=== PATIENT | male | born 1955 | race Hispanic/Latino ===

== ENCOUNTER 2017-01-20 09:51 | Inpatient (IN) | payer MEDICARE, SELFPAY ==
[2017-01-20 10:36] LABS: #Lymphocytes 0.5 thou/uL (1.20-3.40); #Monocytes 0.5 thou/uL (0.11-0.59); #Neutrophils 8.6 thou/uL (1.40-6.50); %Basophils 0.3 % (0.0-1.0); %Eosinophils 0.3 % (0.0-10.0); %Lymphocytes 5.1 % (21.0-51.0); %Monocytes 5.6 % (0.0-10.0); Hematocrit 28.7 % (42.0-52.0); Mean Platelet Volume 7.9 fL (7.4-10.4); White Blood Cell (WBC) Count 9.7 thou/uL (4.8-10.8)
--- NOTE | 2017-01-20 10:38 | RAD ---
PORTABLE CHEST: Date: 01/20/17 HISTORY: Dyspnea. COMPARISON: 09/07/08. FINDINGS: Heart size is upper normal. There is vascular engorgement. There are alveolar infiltrates seen in both lung bases, slightly more prominent on the right. There is evidence of small bilateral effusions. Findings may represent nancy a; however, inflammatory infiltrates should be excluded. IMPRESSION: Bilateral infiltrates and small bilateral effusions. POS: [facility]
[2017-01-20] MEDS ORDERED: Albuterol Sulfate 2.5 mg/3 ml Neb ONE (10:53)
[2017-01-20] MEDS ORDERED: Albuterol Sulfate 2.5 mg/0.5 ml Neb ONE (10:53)
[2017-01-20 10:57] LABS: ALT (SGPT) 11 U/L (8-55); AST (SGOT) 12 U/L (5-34); Alkaline Phosphatase 91 U/L (40-150); Anion Gap 14 mmol/L (10-20); BUN (Urea Nitrogen) 30 mg/dL (8.4-25.7); Calc. Creatinine Clearance 0 mL/min (70-130); Calcium 8.4 mg/dL (7.8-10.44); Carbon Dioxide 14 mmol/L (23-31); Chloride 114 mmol/L (98-107); Estimated GFR-MDRD 67; Globulin 3.2 g/dL (2.4-3.5); Protein, Total 6.8 g/dL (5.8-8.1)
[2017-01-20 11:01] LABS: Troponin I 0.023 ng/mL (< 0.028)
[2017-01-20] MEDS ORDERED: Furosemide 40 MG/4 ML VIAL ONE (11:12)
--- NOTE | 2017-01-20 13:54 | HP ---
PRIMARY CARE PHYSICIAN: This is a city call admission, patient is originally from [place], [place]. He is visiting town. HISTORY OF PRESENT ILLNESS: A 61-year-old male, who has history of CHF as well as COPD, wh o has bilateral above-knee amputation, who came to the emergency room for acute onset of shortness o f breath. Patient is from [place], [place] and he is scared that he is getting over there. 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 He does not have any details health history for himself, so his tory is very limited as we do not have any old medical record in our hospital system as well. He reports that he was visiting our town to meet family members. Last night, he was experiencing sh ortness of breath. He was not able to lie down flat. He was having orthopnea. He denies any fever or chills. He denies any cough, chest pain, palpitation, dizziness, syncope. This morning, patient's condition gotten more worse. He was struggling to breathe and that is why a family member called paramedics. Paramedics gave him nitropatch, Solu-Medrol 125 mg, and 3 times D uoNeb therapy, and paramedics reported that when they saw him at that time he was clammy, diaphoreti c, hypertensive. Patient was kept on BiPAP in the emergency room. He was hypertensive and he arriv ed to our ER. Paramedics also tried him on CPAP and subsequently after BiPAP, he felt better and Bi PAP was weaned off. When I saw this patient at that time, patient was hypertensive. He was on room air and he was feeling better. Chest x-ray today showed bilateral infiltrates, bilateral pleural effusion. His BNP was elevated. At this point, we are admitting this patient to telemetry floor for acute on chronic, presumably sys tolic heart failure and acute hypoxic respiratory failure. REVIEW OF SYSTEMS: The following complete review of systems was negative, unless otherwise mentione d in the HPI or below: Constitutional: Weight loss or gain, ability to conduct usual activities. Skin: Rash, itching. Eyes: Double vision, pain. ENT/Mouth: Nose bleeding, neck stiffness, pain, tenderness. Cardiovascular: Palpitations, dyspnea on exertion, orthopnea. Respiratory: Shortnes s of breath, wheezing, cough, hemoptysis, fever or night sweats. Gastrointestinal: Poor appetite, abdominal pain, heartburn, nausea, vomiting, constipation, or diarrhea. Genitourinary: Urgency, fr equency, dysuria, nocturia. Musculoskeletal: Pain, swelling. Neurologic/Psychiatric: Anxiety, de pression. Allergy/Immunologic: Skin rash, bleeding tendency. Please see my HPI for pertinent posi tives and negatives. All other review of system reviewed and negative except as mentioned in the HP I. PAST MEDICAL HISTORY: Diabetes type 2, hypertension, benign enlargement of prostate, coronary arter y disease, peripheral vascular disease, benign enlargement of prostate, chronic systolic heart failu re, dyslipidemia, and COPD. PAST SURGICAL HISTORY: Patient has bilateral above-knee amputation. 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 Patient also required a procedure on lower extremity for revascularization and within a year, one by one patient required below-knee and subsequently above-knee amputation and also require d similarly on the left lower extremity as well. At this point, the patient has bilateral above-kne e amputation. He also had a cardiac catheterization in the past. PAST PSYCHIATRIC HISTORY: Anxiety and depression. SOCIAL HISTORY: Patient is single. He lives with his sister. No history of smoking, alcohol, or o ther illicit drug abuse. FAMILY HISTORY: Diabetes, hypertension runs among several family members. ALLERGIES: No known drug allergies. CURRENT HOME MEDICATIONS: Gabapentin 300 mg 3 times daily, metformin 1000 mg twice daily, Flomax 0. 4 mg daily, Plavix 75 mg p.o. daily, Proscar 5 mg p.o. daily, Coreg 25 mg twice daily, aspirin 81 mg p.o. daily, Zoloft 50 mg p.o. daily, amlodipine 10 mg p.o. daily, metoprolol tartrate 100 mg twice daily, Lipitor 40 mg p.o. daily, Levemir 20 units subcu twice daily, lisinopril 40 mg p.o. daily. EMERGENCY ROOM COURSE: Patient is given Lasix 80 mg, albuterol nebulization. PHYSICAL EXAMINATION: VITAL SIGNS: On arrival, blood pressure 132/61, pulse 86, respiratory rate 26, temperature 97.8, sa turation 98% on BiPAP. Weight 68 kilograms. GENERAL: Patient is currently alert, awake, short of breath, hypertensive, in no obvious acute dist ress. HEENT: Head: Normocephalic, atraumatic. Eyes: Pupils round, reactive to light. Extraocular musc les intact. ENT: Oropharynx within normal limits. Moist mucous membranes. No oral lesions. No pharyngeal cari thema, no exudates. NECK: Supple, no obvious JVD noted. No meningeal signs of irritation. LUNGS: Bilateral rhonchi and rales noted. CARDIAC: S1, S2 regular, tachycardia, no murmur, no gallop, no rub. ABDOMEN: Obesity present. Bowel sounds present. Nontender, nondistended. No organomegaly, no mas s, no suprapubic tenderness. BACK: Unremarkable, no CVA tenderness. EXTREMITIES: Upper extremity, passive movement of all joints are normal. Lower extremity: Bilater al above-knee amputation. NEUROLOGIC: Grossly nonfocal examination. Patient is moving both upper extremities. His speech is baseline. PSYCHIATRIC: Normal affect. SIGNIFICANT LABS: 1. EKG showing LVH with repolarization changes. Chest x-ray showing bilateral infiltration and valerio ateral pleural effusion. 2. CBC: WBC 9.7, hemoglobin 9.5, platelet 188. BMP shows sodium 137, potassium 5.2, chloride 114, carbon dioxide 14, BUN 30, creatinine 1.11, glucose 181, calcium 8.4. 3. LFT: AST 12, ALT 11, alkaline phosphatase is 91, albumin 3.6. CK-MB 2.6, troponin 0.023, BNP 7 15.1. ASSESSMENT AND PLAN/IMPRESSION: 1. Acute on chronic, likely systolic congestive heart failure exacerbation. This patient presented with acute shortness of breath. He has orthopnea, evaluated BNP, bilateral pleural effusion, and b ilateral rales on the lung examination. He has underlying history of peripheral vascular disease, i schemic heart disease, so most likely this patient has systolic heart failure. This patient has bee n following Cardiology in [place], [place]. At this point, only will try to obtain echocardiography t o assess ejection fraction and other structural abnormality. Meanwhile, we will continue with Lasix 40 mg intravenous 2 times daily and Zaroxolyn 5 mg p.o. daily. We will monitor input output chart, fluid restriction about 1200 mL per day, daily weight and we will monitor electrolytes and replace accordingly. This patient is planned for going to [place], [place] on coming Thursday, so we will def er further evaluation there. 2. Acute hypoxic respiratory failure on admission, required BiPAP, currently improved. At this poi nt, we will continue to treat underlying problem of chronic heart failure exacerbation and we will m onitor oxygen saturations periodically and we will provide oxygen as needed basis. 3. Hypertensive urgency/crisis. The patient was very hypertensive when he presented by paramedics. At this point, patient's blood pressure is improved. We will continue with the nitropatch q.8 anita rly and we will resume patient's home medication as well. 4. Diabetes type 2. We will continue diabetic diet, metformin 1000 mg twice daily, Levemir 20 unit s subcutaneous twice daily. 5. Coronary artery disease as well as peripheral vascular disease. We will continue Plavix 75 mg p .o. daily, Coreg 25 mg twice daily, lisinopril 40 mg p.o. daily. 6. Dyslipidemia. Continue Lipitor 40 mg p.o. at bedtime. 7. Hypertension. In addition to Coreg, lisinopril, we will also continue amlodipine 10 mg p.o. judson ly. 8. Benign enlargement of prostate. We will continue Flomax 0.4 mg p.o. daily and Proscar 5 mg p.o. daily. 9. Diabetic neuropathy. We will continue gabapentin 300 mg three times daily. 10. Bilateral above-knee amputation. We will provide supportive care. 11. Deep venous thrombosis prophylaxis, Lovenox 40 mg subcu daily. 12. Gastrointestinal prophylaxis, Pepcid 20 mg p.o. b.i.d. 13. Code status. I spoke with the patient and family member. Patient is FULL CODE. The patient d oes not have any surrogate decision maker. Disposition plan based on clinical course. We are expecting patient's stay in the hospital more darien n 2 midnights. Plan of care discussed with the patient and family member in the emergency room.
[2017-01-20] MEDS ORDERED: Sodium Chloride 0.65% Nasal 44 ML BOT EA NARE PRN (14:30)
[2017-01-20] MEDS ORDERED: Chloraseptic Spray 180 ml Bottle PO PRN (14:30)
[2017-01-20] MEDS ORDERED: hydrALAZINE 20 MG/ML VIAL SLOW IVP PRN (14:30)
[2017-01-20] MEDS ORDERED: Acetaminophen 325 MG TAB PO PRN (14:30)
[2017-01-20] MEDS ORDERED: Milk Of Magnesia 30 ML UDCUP PO PRN (14:30)
[2017-01-20] MEDS ORDERED: Eucerin (Mineral Oil/Petrolatum,White) 30 gm Jar TOP PRN (14:30)
[2017-01-20] MEDS ORDERED: Diabetic Tussin 200 MG/10 ML UDCUP PO PRN (14:30)
[2017-01-20] MEDS ORDERED: Dextrose 50% Abboject 50 ML SYRINGE SLOW IVP PRN (14:30)
[2017-01-20] MEDS ORDERED: Zolpidem Tartrate 5 MG TAB PO PRN (14:30)
[2017-01-20] MEDS ORDERED: Furosemide 40 MG/4 ML VIAL SLOW IVP SCH ×2 (14:30→15:00)
[2017-01-20] MEDS ORDERED: Nitroglycerin 0.4 MG TAB (25 Tab Bottle) SL PRN (14:30)
[2017-01-20] MEDS ORDERED: Mag-Al 1200 mg/1200 mg/30 ML UDCUP PO PRN (14:30)
[2017-01-20] MEDS ORDERED: Loratadine 10 MG TAB PO PRN (14:30)
[2017-01-20] MEDS ORDERED: Dextrose 5% in Water 1,000 ML IV PRN (14:30)
[2017-01-20] MEDS ORDERED: Ondansetron ODT 4 MG TAB PO PRN (14:30)
[2017-01-20] MEDS ORDERED: Ondansetron HCl/PF 4 MG/2 ML Vial IVP PRN (14:30)
[2017-01-20] MEDS ORDERED: HumaLOG 300 UNITS/3 ML VIAL SC PRN ×2 (14:30)
[2017-01-20] MEDS ORDERED: Senokot 8.6 MG TAB PO PRN (14:30)
[2017-01-20] MEDS ORDERED: Loperamide HCl 2 MG CAP PO PRN (14:30)
[2017-01-20 14:35] LABS: Troponin I 0.039 ng/mL (< 0.028)
[2017-01-20 16:18] LABS: Troponin I 0.045 ng/mL (< 0.028)
[2017-01-20] MEDS: Carvedilol 25 MG TAB PO SCH (16:50)
[2017-01-20] MEDS: Gabapentin 300 MG CAP PO SCH ×2 (16:50→20:04)
[2017-01-20] MEDS ORDERED: Sodium Chloride 0.9% 10 ML ONE (16:59)
[2017-01-20] MEDS: metFORMIN 500 MG TAB PO SCH (17:06)
[2017-01-20 17:32] LABS: Bilirubin Negative (Negative); Blood, Urine Moderate (Negative); Glucose, Urine (Dipstick) Negative (Negative); Ketone, Urine Negative (Negative); Nitrite Positive (Negative); Protein, Urine (Dipstick) 300 mg/dL (Neg-Trace); Urobilinogen 0.2 mg/dL (0.2-1.0)
[2017-01-20 17:35] LABS: Bacteria/HPF 4+ HPF (None Seen); Hyaline Casts/LPF 4-6 HYALINE CAST LPF (0-3 Hyaline); Squamous Epithelial 0-3 HPF (0-3)
[2017-01-20 17:42] LABS: Yeast-All Forms None Seen HPF (None Seen)
[2017-01-20] MEDS: Atorvastatin Calcium 40 MG TAB PO SCH (20:04)
[2017-01-20] MEDS: Famotidine 20 MG TAB PO SCH (20:04)
[2017-01-20] MEDS: Insulin Detemir 100 UNITS/ML 20 UNITS in Admixture Fee 1 EACH SC SCH (20:58)
[2017-01-21] MEDS: Furosemide 40 MG/4 ML VIAL SLOW IVP SCH ×2 (05:10→14:00)
[2017-01-21 05:31] LABS: #Lymphocytes 0.4 thou/uL (1.20-3.40); #Monocytes 0.4 thou/uL (0.11-0.59); %Basophils 0.3 % (0.0-1.0); %Eosinophils 0.3 % (0.0-10.0); %Monocytes 4.8 % (0.0-10.0); Hematocrit 24.7 % (42.0-52.0); Mean Platelet Volume 8.4 fL (7.4-10.4); Red Blood Cell (RBC) Count 2.73 mill/uL (4.70-6.10); White Blood Cell (WBC) Count 7.9 thou/uL (4.8-10.8)
[2017-01-21 05:54] LABS: Anion Gap 13 mmol/L (10-20); BUN (Urea Nitrogen) 33 mg/dL (8.4-25.7); Calc. Creatinine Clearance 91 mL/min (70-130); Calcium 9.1 mg/dL (7.8-10.44); Carbon Dioxide 18 mmol/L (23-31); Chloride 114 mmol/L (98-107); Estimated GFR-MDRD 76; Magnesium 2.2 mg/dL (1.6-2.6); Uric Acid 7.2 mg/dL (3.5-7.2)
[2017-01-21] MEDS: Tamsulosin HCl 0.4 MG CAP PO SCH (08:32)
[2017-01-21] MEDS: Lisinopril 20 MG TAB PO SCH (08:32)
[2017-01-21] MEDS: Metolazone 5 MG TAB PO SCH (08:32)
[2017-01-21] MEDS: Amlodipine 10 MG TAB PO SCH (08:32)
[2017-01-21] MEDS: Carvedilol 25 MG TAB PO SCH ×2 (08:33→16:38)
[2017-01-21] MEDS: metFORMIN 500 MG TAB PO SCH ×2 (08:33→16:37)
[2017-01-21] MEDS: Ferrous Sulfate 325 MG TAB PO SCH (08:33)
[2017-01-21] MEDS: Enoxaparin Sodium 40 MG/0.4 ML SYRINGE SC SCH (08:33)
[2017-01-21] MEDS: Clopidogrel Bisulfate 75 MG TAB PO SCH (08:33)
[2017-01-21] MEDS: Gabapentin 300 MG CAP PO SCH ×3 (08:33→20:34)
[2017-01-21] MEDS: Famotidine 20 MG TAB PO SCH ×2 (08:33→20:34)
[2017-01-21] MEDS: Insulin Detemir 100 UNITS/ML 20 UNITS in Admixture Fee 1 EACH SC SCH ×2 (09:11→20:34)
--- NOTE | 2017-01-21 14:41 | PDOC.PN ---
- Subjective Encounter Start Date: 01/21/17 Encounter Start Time: 10:00 Subjective: breathing better, no chest pain - Objective Resuscitation Status: Resuscitation Status FULL:Full Resuscitation MAR Reviewed: Yes Vital Signs & Weight: Vital Signs (12 hours) Temp Pulse Resp BP Pulse Ox 01/21/17 11:53 98.0 F 78 17 164/74 H 95 01/21/17 08:32 74 01/21/17 08:00 98.1 F 74 17 173/76 H 94 L 01/21/17 05:16 97.9 F 84 20 174/79 H 95 Weight Admit Weight 183 lb 4.8 oz Weight 186 lb 1.6 oz I&O: 01/20/17 01/21/17 01/22/17 06:59 06:59 06:59 Intake Total 494 Output Total 1900 Balance -1406 Result Diagrams: 01/21/17 04:50 01/21/17 04:50 Additional Labs: Accuchecks 01/21/17 01/21/17 01/20/17 10:30 06:08 20:20 POC Glucose 142 H 144 H 203 H 01/20/17 16:00 POC Glucose 212 H Phys Exam - Physical Examination HEENT: PERRLA, moist MMs Neck: no JVD, supple Respiratory: no wheezing, no rales Cardiovascular: RRR, no significant murmur Gastrointestinal: soft, non-tender, positive bowel sounds Musculoskeletal: no edema, pulses present Neurological: non-focal has b/l aka Psychiatric: A&O x 3 Dx/Plan (1) Acute respiratory failure with hypoxia Code(s): J96.01 - ACUTE RESPIRATORY FAILURE WITH HYPOXIA Status: Resolved (2) UTI (urinary tract infection) Status: Acute Qualifiers: Urinary tract infection type: acute cystitis Hematuria presence: without hematuria Qualified Code(s): N30.00 - Acute cystitis without hematuria (3) Acute exacerbation of CHF (congestive heart failure) Code(s): I50.9 - HEART FAILURE, UNSPECIFIED Status: Acute Qualifiers: Congestive heart failure type: unspecified congestive heart failure type Qualified Code(s): I50.9 - Heart failure, unspecified (4) DM type 2 (diabetes mellitus, type 2) Status: Chronic Qualifiers: Diabetes mellitus complication status: with unspecified complications Diabetes mellitus ferry terminal agent insulin use: with long-term use Qualified Code(s) : E11.8 - Type 2 diabetes mellitus with unspecified complications; Z79.4 - care home (current) use of insulin; Z79.4 - intermodal truck driver (current) use of insulin; Z79.4 - intermodal truck driver (current) use of insulin; Z79.4 - intermodal truck driver (current) use of insulin (5) Chronic anemia Code(s): D64.9 - ANEMIA, UNSPECIFIED Status: Chronic (6) Demand ischemia of myocardium Code(s): I24.8 - OTHER FORMS OF ACUTE ISCHEMIC HEART DISEASE Status: Acute (7) b/l aka Status: Chronic (8) Metabolic acidosis Code(s): E87.2 - ACIDOSIS Status: Acute - Plan is on lasix 40mg q12h and metolazone -: levaquin for uti -: echo -: watch for hypotension -: will repeat cxr in 36hrs * . Review of Systems - Medications/Allergies Allergies/Adverse Reactions: Allergies Allergy/AdvReac Type Severity Reaction Status Date / Time No Known Allergies Allergy Verified 01/20/17 16:27 Medications: Current Medications Acetaminophen (Tylenol) 650 mg PO Q4H PRN PRN Reason: Headache/Fever or Pain Hydrocodone Bitart/Acetaminophen ([place] 5/325) 1 tab PO Q4H PRN PRN Reason: Moderate Pain (4-6) Al Hydroxide/Mg Hydroxide (Maalox) 30 ml PO Q6H PRN PRN Reason: Heartburn or Indigestion Albuterol/Ipratropium (Duoneb) 3 ml NEB [id number] PRN PRN Reason: SOB &/or Wheezing Amlodipine Besylate (Norvasc) 10 mg PO DAILY [facility] Last Admin: 01/21/17 08:32 Dose: 10 mg Aspirin (Aspirin Chewable) 81 mg PO DAILY [facility] Last Admin: 01/21/17 08:33 Dose: 81 mg Atorvastatin Calcium (Lipitor) 40 mg PO HS [facility] Last Admin: 01/20/17 20:04 Dose: 40 mg Carvedilol (Coreg) 25 mg PO BID-WM [facility] Last Admin: 01/21/17 08:33 Dose: 25 mg Clopidogrel Bisulfate (Plavix) 75 mg PO DAILY [facility] Last Admin: 01/21/17 08:33 Dose: 75 mg Dextrose/Water (Dextrose 50%) 25 gm SLOW IVP PRN PRN PRN Reason: Hypoglycemia Enoxaparin Sodium (Lovenox) 40 mg SC 0900 [facility] Last Admin: 01/21/17 08:33 Dose: 40 mg Famotidine (Pepcid) 20 mg PO BID [facility] Last Admin: 01/21/17 08:33 Dose: 20 mg Ferrous Sulfate (Feosol) 325 mg PO QAM[facility] Last Admin: 01/21/17 08:33 Dose: 325 mg Furosemide (Lasix) 40 mg SLOW IVP 0600,1400 [facility] Last Admin: 01/21/17 14:00 Dose: 40 mg Gabapentin (Neurontin) 300 mg PO TID [facility] Last Admin: 01/21/17 14:00 Dose: 300 mg Glucagon (Glucagon) 1 mg IM PRN PRN PRN Reason: Hypoglycemia Guaifenesin (Robitussin Sf) 200 mg PO Q4H PRN PRN Reason: Cough Hydralazine HCl (Apresoline) 10 mg SLOW IVP Q4H PRN PRN Reason: Systolic BP > 180 Dextrose/Water (D5w) 1,000 mls @ 0 mls/hr IV .Q0M PRN; As Directed PRN Reason: Hypoglycemia Insulin Detemir 20 units/ (Miscellaneous Medication) 0.2 mls @ 0 mls/hr SC HS [facility] Last Admin: 01/20/17 20:58 Dose: 0.2 mls Insulin Detemir 20 units/ (Miscellaneous Medication) 0.2 mls @ 0 mls/hr SC QAM [facility] Last Admin: 01/21/17 09:11 Dose: 0.2 mls Levofloxacin 500 mg/ Device 100 mls @ 100 mls/hr IVPB Q24HR [facility] Last Admin: 01/21/17 08:30 Dose: 100 mls Insulin Human Lispro (Humalog) 0 units SC .MODERATE SLIDING SC PRN PRN Reason: Moderate Correctional Scale Last Admin: 01/20/17 17:17 Dose: 4 unit Insulin Human Lispro (Humalog) 0 units SC .BEDTIME SLIDING SC PRN PRN Reason: Bedtime Correctional Scale Lisinopril (Zestril) 40 mg PO DAILY [facility] Last Admin: 01/21/17 08:32 Dose: 40 mg Loperamide HCl (Imodium) 2 mg PO PRN PRN PRN Reason: Diarrhea/Loose Stools Loratadine (Claritin) 10 mg PO DAILYPRN PRN PRN Reason: Sinus Symptoms Magnesium Hydroxide (Milk Of Magnesium) 30 ml PO DAILYPRN PRN PRN Reason: Constipation Metformin HCl (Glucophage) 1,000 mg PO BID-[facility] Last Admin: 01/21/17 08:33 Dose: 1,000 mg Metolazone (Zaroxolyn) 5 mg PO 0830 [facility] Last Admin: 01/21/17 08:32 Dose: 5 mg Mineral Oil/White Petrolatum (Eucerin Cream) 0 gm TOP BIDPRN PRN PRN Reason: Dry Skin Nitroglycerin (Nitrostat) 0.4 mg SL Q5MIN PRN PRN Reason: Chest Pain Ondansetron HCl (Zofran Odt) 4 mg PO Q6H PRN PRN Reason: Nausea/Vomiting Ondansetron HCl (Zofran) 4 mg IVP Q6H PRN PRN Reason: Nausea/Vomiting Phenol (Chloraseptic [place] 180 Ml Bot) 0 ml PO PRN PRN PRN Reason: Sore Throat Senna (Senokot) 2 tab PO HSPRN PRN PRN Reason: Constipation Sertraline HCl (Zoloft) 50 mg PO DAILY [facility] Last Admin: 01/21/17 08:32 Dose: 50 mg Sodium Chloride ([place] Nasal [place] 0.65%) 0 ml EA NARE QIDPRN PRN PRN Reason: Nasal Congestion Tamsulosin HCl (Flomax) 0.4 mg PO DAILY [facility] Last Admin: 01/21/17 08:32 Dose: 0.4 mg Zolpidem Tartrate (Ambien) 5 mg PO HSPRN PRN PRN Reason: Insomnia
[2017-01-21] MEDS: Atorvastatin Calcium 40 MG TAB PO SCH (20:33)
[2017-01-22] MEDS: Furosemide 40 MG/4 ML VIAL SLOW IVP SCH ×2 (05:33→16:11)
[2017-01-22] MEDS: HYDROcodone/Acetaminophen 5/325 mg Tablet PO PRN ×2 (05:41→19:07)
[2017-01-22 08:23] LABS: #Eosinphils 0.1 thou/uL (0.0-0.7); #Lymphocytes 0.8 thou/uL (1.20-3.40); #Monocytes 0.4 thou/uL (0.11-0.59); #Neutrophils 5.9 thou/uL (1.40-6.50); %Basophils 0.1 % (0.0-1.0); %Eosinophils 0.8 % (0.0-10.0); %Lymphocytes 10.8 % (21.0-51.0); %Monocytes 5.9 % (0.0-10.0); Hematocrit 26.2 % (42.0-52.0); Mean Platelet Volume 7.6 fL (7.4-10.4); White Blood Cell (WBC) Count 7.1 thou/uL (4.8-10.8)
[2017-01-22 08:41] LABS: Anion Gap 13 mmol/L (10-20); BUN (Urea Nitrogen) 38 mg/dL (8.4-25.7); Calc. Creatinine Clearance 92 mL/min (70-130); Carbon Dioxide 21 mmol/L (23-31); Chloride 109 mmol/L (98-107); Estimated GFR-MDRD 75
[2017-01-22] MEDS: Ferrous Sulfate 325 MG TAB PO SCH (08:44)
[2017-01-22] MEDS: Carvedilol 25 MG TAB PO SCH ×2 (08:44→16:12)
[2017-01-22] MEDS: metFORMIN 500 MG TAB PO SCH ×2 (08:44→16:12)
[2017-01-22] MEDS: Enoxaparin Sodium 40 MG/0.4 ML SYRINGE SC SCH (08:44)
[2017-01-22] MEDS: Metolazone 5 MG TAB PO SCH (08:44)
[2017-01-22] MEDS: Famotidine 20 MG TAB PO SCH ×2 (08:45→22:32)
[2017-01-22] MEDS: Lisinopril 20 MG TAB PO SCH (08:45)
[2017-01-22] MEDS: Clopidogrel Bisulfate 75 MG TAB PO SCH (08:45)
[2017-01-22] MEDS: Gabapentin 300 MG CAP PO SCH ×3 (08:45→22:32)
[2017-01-22] MEDS: Tamsulosin HCl 0.4 MG CAP PO SCH (08:45)
[2017-01-22] MEDS: Amlodipine 10 MG TAB PO SCH (08:46)
[2017-01-22] MEDS: Insulin Detemir 100 UNITS/ML 20 UNITS in Admixture Fee 1 EACH SC SCH ×2 (08:53→22:33)
--- NOTE | 2017-01-22 12:02 | PDOC.PN ---
- Subjective Encounter Start Date: 01/22/17 Encounter Start Time: 10:00 Subjective: breathing better, no chest pain - Objective Resuscitation Status: Resuscitation Status FULL:Full Resuscitation MAR Reviewed: Yes Vital Signs & Weight: Vital Signs (12 hours) Temp Pulse Resp BP BP Pulse Ox 01/22/17 08:46 72 01/22/17 08:45 182/79 H 01/22/17 08:05 97.7 F 72 19 182/79 H 94 L 01/22/17 03:38 98.2 F 73 16 182/77 H 98 Weight Admit Weight 183 lb 4.8 oz Weight 188 lb 3 oz I&O: 01/21/17 01/22/17 01/23/17 06:59 06:59 06:59 Intake Total 494 1020 Output Total 1900 2825 Balance -1406 -1805 Result Diagrams: 01/22/17 08:13 01/22/17 08:13 Additional Labs: Accuchecks 01/22/17 01/21/17 01/21/17 05:20 20:01 16:24 POC Glucose 60 L 139 H 92 Phys Exam - Physical Examination HEENT: PERRLA, moist MMs Neck: no JVD, supple Respiratory: no wheezing, no rales Cardiovascular: RRR, no significant murmur Gastrointestinal: soft, non-tender, positive bowel sounds Musculoskeletal: no edema, pulses present Neurological: non-focal, moves all 4 limbs b/l aka Psychiatric: normal affect, A&O x 3 Dx/Plan (1) Acute respiratory failure with hypoxia Code(s): J96.01 - ACUTE RESPIRATORY FAILURE WITH HYPOXIA Status: Resolved (2) UTI (urinary tract infection) Status: Acute Qualifiers: Urinary tract infection type: acute cystitis Hematuria presence: without hematuria Qualified Code(s): N30.00 - Acute cystitis without hematuria (3) Acute exacerbation of CHF (congestive heart failure) Code(s): I50.9 - HEART FAILURE, UNSPECIFIED Status: Acute Qualifiers: Congestive heart failure type: diastolic Qualified Code(s): I50.33 - Acute on chronic diastolic (congestive) heart failure (4) DM type 2 (diabetes mellitus, type 2) Status: Chronic Qualifiers: Diabetes mellitus complication status: with unspecified complications Diabetes mellitus custodial insulin use: with terminal system operator use Qualified Code(s) : E11.8 - Type 2 diabetes mellitus with unspecified complications; Z79.4 - ferry terminal agent (current) use of insulin; Z79.4 - ferry terminal agent (current) use of insulin; Z79.4 - alf (current) use of insulin; Z79.4 - alf (current) use of insulin (5) Chronic anemia Code(s): D64.9 - ANEMIA, UNSPECIFIED Status: Chronic (6) Demand ischemia of myocardium Code(s): I24.8 - OTHER FORMS OF ACUTE ISCHEMIC HEART DISEASE Status: Acute (7) b/l aka Status: Chronic (8) Metabolic acidosis Code(s): E87.2 - ACIDOSIS Status: Acute - Plan await urine cs, on levaquin -: continue iv diuresis till am -: acidosis is resolving -: dc plan in am -: HH on discharge * . Review of Systems - Medications/Allergies Allergies/Adverse Reactions: Allergies Allergy/AdvReac Type Severity Reaction Status Date / Time No Known Allergies Allergy Verified 01/20/17 16:27 Medications: Current Medications Acetaminophen (Tylenol) 650 mg PO Q4H PRN PRN Reason: Headache/Fever or Pain Hydrocodone Bitart/Acetaminophen ([place] 5/325) 1 tab PO Q4H PRN PRN Reason: Moderate Pain (4-6) Last Admin: 01/22/17 05:41 Dose: 1 tab Al Hydroxide/Mg Hydroxide (Maalox) 30 ml PO Q6H PRN PRN Reason: Heartburn or Indigestion Albuterol/Ipratropium (Duoneb) 3 ml NEB [id number] PRN PRN Reason: SOB &/or Wheezing Amlodipine Besylate (Norvasc) 10 mg PO DAILY [facility] Last Admin: 01/22/17 08:46 Dose: 10 mg Aspirin (Aspirin Chewable) 81 mg PO DAILY [facility] Last Admin: 01/22/17 08:46 Dose: 81 mg Atorvastatin Calcium (Lipitor) 40 mg PO HS [facility] Last Admin: 01/21/17 20:33 Dose: 40 mg Carvedilol (Coreg) 25 mg PO BID-WM [facility] Last Admin: 01/22/17 08:44 Dose: 25 mg Clopidogrel Bisulfate (Plavix) 75 mg PO DAILY [facility] Last Admin: 01/22/17 08:45 Dose: 75 mg Dextrose/Water (Dextrose 50%) 25 gm SLOW IVP PRN PRN PRN Reason: Hypoglycemia Enoxaparin Sodium (Lovenox) 40 mg SC 0900 [facility] Last Admin: 01/22/17 08:44 Dose: 40 mg Famotidine (Pepcid) 20 mg PO BID [facility] Last Admin: 01/22/17 08:45 Dose: 20 mg Ferrous Sulfate (Feosol) 325 mg PO QAM-WM [facility] Last Admin: 01/22/17 08:44 Dose: 325 mg Furosemide (Lasix) 40 mg SLOW IVP 0600,1400 [facility] Last Admin: 01/22/17 05:33 Dose: 40 mg Gabapentin (Neurontin) 300 mg PO TID [facility] Last Admin: 01/22/17 08:45 Dose: 300 mg Glucagon (Glucagon) 1 mg IM PRN PRN PRN Reason: Hypoglycemia Guaifenesin (Robitussin Sf) 200 mg PO Q4H PRN PRN Reason: Cough Hydralazine HCl (Apresoline) 10 mg SLOW IVP Q4H PRN PRN Reason: Systolic BP > 180 Dextrose/Water (D5w) 1,000 mls @ 0 mls/hr IV .Q0M PRN; As Directed PRN Reason: Hypoglycemia Insulin Detemir 20 units/ (Miscellaneous Medication) 0.2 mls @ 0 mls/hr SC HS [facility] Last Admin: 01/21/17 20:34 Dose: 0.2 mls Insulin Detemir 20 units/ (Miscellaneous Medication) 0.2 mls @ 0 mls/hr SC QAM [facility] Last Admin: 01/22/17 08:53 Dose: 0.2 mls Levofloxacin 500 mg/ Device 100 mls @ 100 mls/hr IVPB Q24HR [facility] Last Admin: 01/22/17 09:06 Dose: 100 mls Insulin Human Lispro (Humalog) 0 units SC .MODERATE SLIDING SC PRN PRN Reason: Moderate Correctional Scale Last Admin: 01/20/17 17:17 Dose: 4 unit Insulin Human Lispro (Humalog) 0 units SC .BEDTIME SLIDING SC PRN PRN Reason: Bedtime Correctional Scale Lisinopril (Zestril) 40 mg PO DAILY [facility] Last Admin: 01/22/17 08:45 Dose: 40 mg Loperamide HCl (Imodium) 2 mg PO PRN PRN PRN Reason: Diarrhea/Loose Stools Loratadine (Claritin) 10 mg PO DAILYPRN PRN PRN Reason: Sinus Symptoms Magnesium Hydroxide (Milk Of Magnesium) 30 ml PO DAILYPRN PRN PRN Reason: Constipation Metformin HCl (Glucophage) 1,000 mg PO BID-[facility] Last Admin: 01/22/17 08:44 Dose: 1,000 mg Metolazone (Zaroxolyn) 5 mg PO 0830 [facility] Last Admin: 01/22/17 08:44 Dose: 5 mg Mineral Oil/White Petrolatum (Eucerin Cream) 0 gm TOP BIDPRN PRN PRN Reason: Dry Skin Nitroglycerin (Nitrostat) 0.4 mg SL Q5MIN PRN PRN Reason: Chest Pain Ondansetron HCl (Zofran Odt) 4 mg PO Q6H PRN PRN Reason: Nausea/Vomiting Ondansetron HCl (Zofran) 4 mg IVP Q6H PRN PRN Reason: Nausea/Vomiting Phenol (Chloraseptic [place] 180 Ml Bot) 0 ml PO PRN PRN PRN Reason: Sore Throat Senna (Senokot) 2 tab PO HSPRN PRN PRN Reason: Constipation Sertraline HCl (Zoloft) 50 mg PO DAILY [facility] Last Admin: 01/22/17 08:46 Dose: 50 mg Sodium Chloride ([place] Nasal [place] 0.65%) 0 ml EA NARE QIDPRN PRN PRN Reason: Nasal Congestion Tamsulosin HCl (Flomax) 0.4 mg PO DAILY [facility] Last Admin: 01/22/17 08:45 Dose: 0.4 mg Zolpidem Tartrate (Ambien) 5 mg PO HSPRN PRN PRN Reason: Insomnia
[2017-01-22] MEDS: Atorvastatin Calcium 40 MG TAB PO SCH (22:32)
[2017-01-23] MEDS ORDERED: Sodium Chloride 0.9% 10 ML ONE (03:31)
[2017-01-23] MEDS: HYDROcodone/Acetaminophen 5/325 mg Tablet PO PRN (03:39)
[2017-01-23] MEDS: Furosemide 40 MG/4 ML VIAL SLOW IVP SCH (05:00)
[2017-01-23 05:52] LABS: Anion Gap 15 mmol/L (10-20); BUN (Urea Nitrogen) 38 mg/dL (8.4-25.7); Calc. Creatinine Clearance 79 mL/min (70-130); Calcium 8.4 mg/dL (7.8-10.44); Carbon Dioxide 21 mmol/L (23-31); Chloride 108 mmol/L (98-107); Estimated GFR-MDRD 73
[2017-01-23 06:02] LABS: #Eosinphils 0.2 thou/uL (0.0-0.7); #Lymphocytes 1.2 thou/uL (1.20-3.40); #Monocytes 0.5 thou/uL (0.11-0.59); #Neutrophils 5.2 thou/uL (1.40-6.50); %Basophils 0.1 % (0.0-1.0); %Eosinophils 3.2 % (0.0-10.0); %Lymphocytes 16.7 % (21.0-51.0); %Monocytes 7.1 % (0.0-10.0); Hematocrit 28.3 % (42.0-52.0); Mean Platelet Volume 7.5 fL (7.4-10.4); Red Blood Cell (RBC) Count 3.18 mill/uL (4.70-6.10); White Blood Cell (WBC) Count 7.2 thou/uL (4.8-10.8)
[2017-01-23 07:34] VITALS: TEMP 98
[2017-01-23] MEDS: Ferrous Sulfate 325 MG TAB PO SCH (08:50)
[2017-01-23] MEDS: Clopidogrel Bisulfate 75 MG TAB PO SCH (08:50)
[2017-01-23] MEDS: Gabapentin 300 MG CAP PO SCH (08:50)
[2017-01-23] MEDS: Famotidine 20 MG TAB PO SCH (08:50)
[2017-01-23] MEDS: Lisinopril 20 MG TAB PO SCH (08:51)
[2017-01-23] MEDS: Carvedilol 25 MG TAB PO SCH (08:51)
[2017-01-23] MEDS: metFORMIN 500 MG TAB PO SCH (08:51)
[2017-01-23] MEDS: Tamsulosin HCl 0.4 MG CAP PO SCH (08:51)
[2017-01-23] MEDS: Amlodipine 10 MG TAB PO SCH (08:51)
[2017-01-23] MEDS: Metolazone 5 MG TAB PO SCH (08:51)
[2017-01-23] MEDS: Enoxaparin Sodium 40 MG/0.4 ML SYRINGE SC SCH (08:52)
[2017-01-23 08:53] VITALS: BP 182/79
[2017-01-23] MEDS: Insulin Detemir 100 UNITS/ML 20 UNITS in Admixture Fee 1 EACH SC SCH (08:53)
--- NOTE | 2017-01-23 09:24 | PDOC.PN ---
- Subjective Encounter Start Date: 01/23/17 Encounter Start Time: 08:00 Subjective: no sob, feels better -: has chronic pérez from 2 yrs and there are plans for spc+ - Objective Resuscitation Status: Resuscitation Status FULL:Full Resuscitation MAR Reviewed: Yes Vital Signs & Weight: Vital Signs (12 hours) Temp Pulse Resp BP BP BP Pulse Ox 01/23/17 08:51 73 182/79 H 01/23/17 07:28 98 F 73 20 173/75 H 95 01/23/17 03:31 97.7 F 72 18 161/74 H 93 L 01/22/17 22:46 97.3 F L 70 16 159/71 H 93 L Weight Admit Weight 183 lb 4.8 oz Weight 166 lb 8 oz I&O: 01/22/17 01/23/17 01/24/17 06:59 06:59 06:59 Intake Total 1020 1314 Output Total 2825 3470 Balance -1805 -4193 Result Diagrams: 01/23/17 05:15 01/23/17 05:15 Additional Labs: Accuchecks 01/23/17 01/22/17 01/22/17 05:24 20:08 16:56 POC Glucose 70 94 70 01/22/17 11:22 POC Glucose 118 H Phys Exam - Physical Examination HEENT: PERRLA, moist MMs Neck: no JVD, supple Respiratory: no wheezing, no rales Cardiovascular: RRR, no significant murmur Gastrointestinal: soft, non-tender, positive bowel sounds Musculoskeletal: no edema, pulses present b/l aka Neurological: non-focal Psychiatric: A&O x 3 Dx/Plan (1) Acute respiratory failure with hypoxia Code(s): J96.01 - ACUTE RESPIRATORY FAILURE WITH HYPOXIA Status: Resolved (2) UTI (urinary tract infection) Status: Acute Qualifiers: Urinary tract infection type: catheter-associated UTI Comment: likely colonization with chronic pérez from 2 yrs, no active infection at present (3) Acute exacerbation of CHF (congestive heart failure) Code(s): I50.9 - HEART FAILURE, UNSPECIFIED Status: Acute Qualifiers: Congestive heart failure type: diastolic Qualified Code(s): I50.33 - Acute on chronic diastolic (congestive) heart failure (4) DM type 2 (diabetes mellitus, type 2) Status: Chronic Qualifiers: Diabetes mellitus complication status: with unspecified complications Diabetes mellitus fdc insulin use: with 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 Qualified Code(s) : E11.8 - Type 2 diabetes mellitus with unspecified complications; Z79.4 - wheel adjuster (current) use of insulin; Z79.4 - USP (current) use of insulin; Z79.4 - USP (current) use of insulin; Z79.4 - wheel adjuster (current) use of insulin (5) Chronic anemia Code(s): D64.9 - ANEMIA, UNSPECIFIED Status: Chronic (6) Demand ischemia of myocardium Code(s): I24.8 - OTHER FORMS OF ACUTE ISCHEMIC HEART DISEASE Status: Acute (7) b/l aka Status: Chronic (8) Metabolic acidosis Code(s): E87.2 - ACIDOSIS Status: Resolved - Plan hemostable -: dc pt home -: HH if has insurance -: oral lasix, prescriptions written in chart * . Review of Systems - Medications/Allergies Allergies/Adverse Reactions: Allergies Allergy/AdvReac Type Severity Reaction Status Date / Time No Known Allergies Allergy Verified 01/20/17 16:27 Medications: Current Medications Acetaminophen (Tylenol) 650 mg PO Q4H PRN PRN Reason: Headache/Fever or Pain Hydrocodone Bitart/Acetaminophen ([place] 5/325) 1 tab PO Q4H PRN PRN Reason: Moderate Pain (4-6) Last Admin: 01/23/17 03:39 Dose: 1 tab Al Hydroxide/Mg Hydroxide (Maalox) 30 ml PO Q6H PRN PRN Reason: Heartburn or Indigestion Albuterol/Ipratropium (Duoneb) 3 ml NEB H4RA-AB PRN PRN Reason: SOB &/or Wheezing Amlodipine Besylate (Norvasc) 10 mg PO DAILY [facility] Last Admin: 01/23/17 08:51 Dose: 10 mg Aspirin (Aspirin Chewable) 81 mg PO DAILY [facility] Last Admin: 01/23/17 08:51 Dose: 81 mg Atorvastatin Calcium (Lipitor) 40 mg PO HS [facility] Last Admin: 01/22/17 22:32 Dose: 40 mg Carvedilol (Coreg) 25 mg PO BID-WM [facility] Last Admin: 01/23/17 08:51 Dose: 25 mg Clopidogrel Bisulfate (Plavix) 75 mg PO DAILY [facility] Last Admin: 01/23/17 08:50 Dose: 75 mg Dextrose/Water (Dextrose 50%) 25 gm SLOW IVP PRN PRN PRN Reason: Hypoglycemia Enoxaparin Sodium (Lovenox) 40 mg SC 0900 [facility] Last Admin: 01/23/17 08:52 Dose: 40 mg Famotidine (Pepcid) 20 mg PO BID [facility] Last Admin: 01/23/17 08:50 Dose: 20 mg Ferrous Sulfate (Feosol) 325 mg PO QAM[facility] Last Admin: 01/23/17 08:50 Dose: 325 mg Furosemide (Lasix) 40 mg SLOW IVP 0600,1400 [facility] Last Admin: 01/23/17 05:00 Dose: 40 mg Gabapentin (Neurontin) 300 mg PO TID [facility] Last Admin: 01/23/17 08:50 Dose: 300 mg Glucagon (Glucagon) 1 mg IM PRN PRN PRN Reason: Hypoglycemia Guaifenesin (Robitussin Sf) 200 mg PO Q4H PRN PRN Reason: Cough Hydralazine HCl (Apresoline) 10 mg SLOW IVP Q4H PRN PRN Reason: Systolic BP > 180 Dextrose/Water (D5w) 1,000 mls @ 0 mls/hr IV .Q0M PRN; As Directed PRN Reason: Hypoglycemia Insulin Detemir 20 units/ (Miscellaneous Medication) 0.2 mls @ 0 mls/hr SC HS [facility] Last Admin: 01/22/17 22:33 Dose: 0.2 mls Insulin Detemir 20 units/ (Miscellaneous Medication) 0.2 mls @ 0 mls/hr [facility] Last Admin: 01/23/17 08:53 Dose: 0.2 mls Levofloxacin 500 mg/ Device 100 mls @ 100 mls/hr IVPB Q24HR [facility] Last Admin: 01/23/17 08:51 Dose: 100 mls Insulin Human Lispro (Humalog) 0 units SC .MODERATE SLIDING SC PRN PRN Reason: Moderate Correctional Scale Last Admin: 01/20/17 17:17 Dose: 4 unit Insulin Human Lispro (Humalog) 0 units SC .BEDTIME SLIDING SC PRN PRN Reason: Bedtime Correctional Scale Lisinopril (Zestril) 40 mg PO DAILY [facility] Last Admin: 01/23/17 08:51 Dose: 40 mg Loperamide HCl (Imodium) 2 mg PO PRN PRN PRN Reason: Diarrhea/Loose Stools Loratadine (Claritin) 10 mg PO DAILYPRN PRN PRN Reason: Sinus Symptoms Magnesium Hydroxide (Milk Of Magnesium) 30 ml PO DAILYPRN PRN PRN Reason: Constipation Metformin HCl (Glucophage) 1,000 mg PO BID[facility] Last Admin: 01/23/17 08:51 Dose: 1,000 mg Metolazone (Zaroxolyn) 5 mg PO 0830 [facility] Last Admin: 01/23/17 08:51 Dose: 5 mg Mineral Oil/White Petrolatum (Eucerin Cream) 0 gm TOP BIDPRN PRN PRN Reason: Dry Skin Nitroglycerin (Nitrostat) 0.4 mg SL Q5MIN PRN PRN Reason: Chest Pain Ondansetron HCl (Zofran Odt) 4 mg PO Q6H PRN PRN Reason: Nausea/Vomiting Ondansetron HCl (Zofran) 4 mg IVP Q6H PRN PRN Reason: Nausea/Vomiting Phenol (Chloraseptic Cascade 180 Ml Bot) 0 ml PO PRN PRN PRN Reason: Sore Throat Senna (Senokot) 2 tab PO HSPRN PRN PRN Reason: Constipation Sertraline HCl (Zoloft) 50 mg PO DAILY [facility] Last Admin: 01/23/17 08:58 Dose: 50 mg Sodium Chloride ([place] Nasal Cascade 0.65%) 0 ml EA NARE QIDPRN PRN PRN Reason: Nasal Congestion Tamsulosin HCl (Flomax) 0.4 mg PO DAILY [facility] Last Admin: 01/23/17 08:51 Dose: 0.4 mg Zolpidem Tartrate (Ambien) 5 mg PO HSPRN PRN PRN Reason: Insomnia
--- NOTE | 2017-01-23 12:44 | DIS ---
DATE OF ADMISSION: 01/20/2017 DATE OF DISCHARGE: 01/23/2017 DISCHARGE DISPOSITION: To home. PRIMARY DISCHARGE DIAGNOSES: Acute respiratory failure with hypoxia due to congestive heart failure exacerbation with diastolic dysfunction. Initial urinary tract infection is thought to be colonization due to chronic indwelling Smith catheter. SECONDARY DISCHARGE DIAGNOSES: Diabetes mellitus, type 2; demand ischemia due to congestive heart failure exacerbation; chronic anemia; history of bilateral [id number] amputation; metabolic acidosis. PROCEDURES DONE DURING HOSPITALIZATION: Echo with 2D Doppler done showed EF of 60%-65%. No wall motion abnormalities were seen. Chest x-ray done on the day of admission showed bilateral pulmonary vascular congestion with effusions. Urine culture grew 3 different gram-negative rods, likely due to colonization. Influenza A and B antigens were negative. H and H 9 and 28 with platelet count of 249. Discharge BUN and creatinine is 38 and 1.0. Troponin I was indeterminate with peaking up to 0.04. BNP 715. Serum bicarbonate on admission was 14 with discharge numbers of 21. DISCHARGE MEDICATIONS: Norvasc 10 mg p.o. daily, aspirin 81 mg p.o. daily, atorvastatin 40 mg p.o. daily, Coreg 25 mg p.o. twice daily, Plavix 75 mg p.o. daily, ferrous sulfate 325 mg p.o. q.a.m., finasteride 5 mg p.o. daily, Lasix 40 mg p.o. daily, gabapentin 300 mg p.o. 3 times daily, Levemir 20 units subcu twice daily, lisinopril 40 mg p.o. daily, sertraline 50 mg p.o. daily, Flomax 0.4 mg p.o. daily, hydralazine 25 mg p.o. 3 times daily, metformin 1000 mg p.o. twice daily. ALLERGIES: No known drug allergies. DISCHARGE PLAN: Patient to follow up with his primary care physician in 1 week and he also needs to follow up with his urologist as advised for possible suprapubic catheterization. BRIEF COURSE DURING HOSPITALIZATION: Patient initially got admitted on the with complaints of shortness of breath. He is actually from [place] and is visiting friends and family here. The patient was briefly placed on BiPAP initially and was weaned off. He was gently diuresed during his stay here. Echo revealed good ejection fraction. His medications were optimized during his stay here. Please note patient has bilateral above-knee amputations. He also has chronic indwelling Smith catheter from last 2 years or so and his urologist has advised him to have a suprapubic catheter. He needs to follow up with his urologist for the same. His was counseled with regard to 2 gram sodium , heart healthy diet. He is hemodynamically stable and will be shortly discharged home. Please see a [id number] documentation on [facility] for the day of discharge. ERNESTO
--- NOTE | 2017-02-02 12:54 | EKG ---
Test Reason : Blood Pressure : / mmHG Vent. Rate : 092 BPM Atrial Rate : 092 BPM P-R Int : 156 ms QRS Dur : 084 ms QT Int : 336 ms P-R-T Axes : 029 001 105 degrees QTc Int : 415 ms Normal sinus rhythm Left ventricular hypertrophy with repolarization abnormality Abnormal ECG Confirmed by LILIAN SARGENT MD ([id number]), commercial production editor VASILE ALICEA ([id number]) on 02/02/2017 12:53:49 PM Referred By: Confirmed By:LILIAN SARGENT MD
== END 2017-01-23 12:40 | disposition home or self-care (01) | DRG 291 ==
LOC: ERS 09:51 → 2NO 14:14
PROVIDERS: ADMIT Hospitalist; ATTEND Hospitalist
PROC: 5A09357 Assistance with Respiratory Ventilation, Less than 24 Consecutive Hours, Continuous Positive Airway Pressure (ICD-10-PCS; principal; 2017-01-20)
DX: I11.0 Hypertensive heart disease with heart failure (principal); J96.01 Acute respiratory failure with hypoxia; E87.2 Acidosis; I24.8 Other forms of acute ischemic heart disease; T83.511A Infection and inflammatory reaction due to indwelling urethral catheter, initial encounter; N30.00 Acute cystitis without hematuria; I16.0 Hypertensive urgency; I50.33 Acute on chronic diastolic (congestive) heart failure; Z22.39 Carrier of other specified bacterial diseases; D64.9 Anemia, unspecified; Z89.612 Acquired absence of left leg above knee; Z89.611 Acquired absence of right leg above knee; Z23 Encounter for immunization; N40.0 Benign prostatic hyperplasia without lower urinary tract symptoms; E11.51 Type 2 diabetes mellitus with diabetic peripheral angiopathy without gangrene; E78.5 Hyperlipidemia, unspecified; J44.9 Chronic obstructive pulmonary disease, unspecified; I25.10 Atherosclerotic heart disease of native coronary artery without angina pectoris; F41.9 Anxiety disorder, unspecified; F32.9 Major depressive disorder, single episode, unspecified; E11.40 Type 2 diabetes mellitus with diabetic neuropathy, unspecified
CPT/HCPCS: 36415; 36416; 71010; 80048; 80053; 81001; 82553; 83735; 83880; 84484; 84550; 85025; 87077; 87086; 87186; 90471; 90732; 93005; 93306; 93798; 94644; 94660; 96374; A4216; G0009; J1650; J1815; J1940; J1956; J7611

== ENCOUNTER 2017-02-02 01:53 | Inpatient (IN) | payer MEDICARE ==
[2017-02-02 02:38] LABS: Bilirubin Negative (Negative); Blood, Urine Large (Negative); Glucose, Urine (Dipstick) 100 mg/dL (Negative); Ketone, Urine Negative (Negative); Nitrite Negative (Negative); Protein, Urine (Dipstick) 300 mg/dL (Neg-Trace); Urobilinogen 0.2 mg/dL (0.2-1.0)
[2017-02-02 02:40] LABS: Bacteria/HPF 4+ HPF (None Seen)
[2017-02-02 02:55] LABS: Yeast-All Forms 2+ HPF (None Seen)
[2017-02-02 02:59] LABS: Hyaline Casts/LPF 4-6 HYALINE CAST LPF (0-3 Hyaline)
[2017-02-02 03:07] LABS: ALT (SGPT) 8 U/L (8-55); AST (SGOT) 11 U/L (5-34); Alkaline Phosphatase 90 U/L (40-150); Anion Gap 14 mmol/L (10-20); BUN (Urea Nitrogen) 33 mg/dL (8.4-25.7); Bilirubin, Total 0.7 mg/dL (0.2-1.2); CK (CPK) 53 U/L (30-200); Calc. Creatinine Clearance 0 mL/min (70-130); Calcium 8.6 mg/dL (7.8-10.44); Carbon Dioxide 21 mmol/L (23-31); Chloride 105 mmol/L (98-107); Estimated GFR-MDRD 67; Protein, Total 6.3 g/dL (5.8-8.1)
[2017-02-02 03:10] LABS: Troponin I 0.011 ng/mL (< 0.028)
[2017-02-02 03:15] LABS: Hematocrit 26.1 % (42.0-52.0); Mean Platelet Volume 7.3 fL (7.4-10.4); Red Blood Cell (RBC) Count 2.89 mill/uL (4.70-6.10); White Blood Cell (WBC) Count 20.4 thou/uL (4.8-10.8)
[2017-02-02 03:25] LABS: PTT 42.4 SEC (22.9-36.1); Prothrombin Time 15.6 SEC (12.0-14.7)
[2017-02-02 03:28] LABS: Band 11 % (5-11); Neutrophil 84 % (42-75)
[2017-02-02] MEDS ORDERED: Furosemide 40 MG/4 ML VIAL ONE (03:48)
[2017-02-02] MEDS ORDERED: Ondansetron HCl/PF 4 MG/2 ML Vial IVP PRN ×2 (04:21→07:42)
[2017-02-02] MEDS ORDERED: Acetaminophen 325 MG TAB PO PRN (04:21)
[2017-02-02] MEDS ORDERED: Ondansetron ODT 4 MG TAB SL PRN (04:21)
[2017-02-02] MEDS ORDERED: cefTRIAXone\\ROCEPHIN 1 GM, Syringe 0.4 ML in Sterile Water 9.6 ML SLOW IVP SCH (05:00)
[2017-02-02 05:02] VITALS: BMI 30.5
[2017-02-02] MEDS ORDERED: Azithromycin 500 MG in Sodium Chloride 0.9% 250 ML 250 ML IVPB SCH (06:00)
[2017-02-02] MEDS ORDERED: Dextrose 50% Abboject 50 ML SYRINGE IVP PRN (07:18)
[2017-02-02] MEDS ORDERED: Dextrose 5% in Water 1,000 ML IV PRN (07:18)
--- NOTE | 2017-02-02 07:49 | HP ---
DATE OF ADMISSION: 02/02/2017 CHIEF COMPLAINT ON ADMISSION: Pneumonia and exacerbation of CHF. HISTORY OF PRESENT ILLNESS: The patient is a 61-year-old male who was seen in Dr. Knapp's office breezy castaneda in the week and diagnosed with pneumonia. He was started on oral antibiotics; however, in the last 24 hours he has had worsening shortness of breath, dyspnea, diaphoresis, such that he called 9 11. They arrived and he was in respiratory failure. On the way to the ER, they gave him 2 DuoNeb t reatments and put him on CPAP, such that by the time he arrival to the ER, he was significantly impr kimber. In the emergency room, he was switched over to continue BiPAP therapy and has been stable sin ce that time. In the ER, his white count was noted to be 20,000. PAST MEDICAL HISTORY: Significant for multiple medical problems to include severe peripheral vascul ar disease, COPD, heart failure, hypertension, diabetes type 2, BPH, depression, dyslipidemia. PAST SURGICAL HISTORY: Includes bilateral AKAs in 2014, stents in right lower leg as well. PSYCHIATRIC HISTORY: Significant for the previously mentioned anxiety and depression. SOCIAL HISTORY: He has no recent smoking, alcohol or drug use. ALLERGIES: He has no known drug allergies. MEDICATIONS ON ADMISSION: Gabapentin 300 mg t.i.d., metformin 1000 b.i.d., Flomax 0.4 mg daily, Sweta vix 75 mg daily, Avodart 5 mg daily, carvedilol 25 mg b.i.d., aspirin 81 mg daily, Zoloft 50 mg nirav y, amlodipine 10 mg daily, Lipitor 40 mg daily, Levemir 20 units b.i.d., lisinopril 40 mg daily, hyd ralazine 25 mg daily. REVIEW OF SYSTEMS: Review of systems at this time: CONSTITUTIONAL: He denies fever, but has had diaphoresis and general weakness. EYES: Denies pain or discharge. ENT: Denies rhinorrhea or lesions. CARDIOVASCULAR: Denies chest pain, palpitations. RESPIRATORY: He has shortness of breath as reason for admission, but denies cough. GI: Denies nausea, vomiting, diarrhea. : Denies dysuria, frequency. MUSCULOSKELETAL: Denies arthralgias. SKIN: Denies rash or lesions. NEUROLOGIC: Denies any seizures, trouble with mentation. ENDOCRINE: Denies edema. Blood sugars have been adequate. LYMPHATICS: He denies any easy bruising. PHYSICAL EXAMINATION: VITAL SIGNS: On admission, blood pressure was 154/73, pulse 96, respirations 30, O2 sat 94% on BiPA P. GENERAL: Generally well-developed, well-nourished, alert male. HEENT: Normocephalic and atraumatic. Pupils equal, round, and reactive to light. Extraocular musc les are intact. TMs, nares, pharynx clear. NECK: Supple, trachea midline, no bruits, no mass. CHEST: With bilateral rales. HEART: Regular rate and rhythm, tachycardic. ABDOMEN: Soft, nontender, without appreciable organomegaly. : Deferred. EXTREMITIES: The upper extremities are without clubbing, cyanosis, or edema. Normal range of motio n. Lower extremities; with AKA bilaterally. SKIN: Without acute rashes or lesions. NEUROLOGIC: Cranial nerves are intact. Unable to test gait and cerebellar function. Sensory exam is grossly intact. Mental status is clear. LABORATORY AND X-RAY: Chest x-ray showed infiltrates. WBCs was 20.4 with hemoglobin 8.7, hematocri t 26.6, platelets at 271. PT 15.6, INR 1.2. Sodium 136, potassium 4.3, chloride 105, CO2 21, BUN 3 3, creatinine is 1.11 and GFR of 67, glucose 197. Liver functions normal. Cardiac enzymes negative so far, BNP elevated at 732. Urinalysis showed WBCs at too numerous to count, negative ketones, la rge blood. ASSESSMENT: 1. Pneumonia. 2. Exacerbation of chronic obstructive pulmonary disease with bronchitis. 3. Element of congestive heart failure, unable to determine more specific type at this time. 4. Urinary tract infection. 5. Diabetes. 6. Hypertension. 7. Severe peripheral vascular disease (status post bilateral AKA). PLAN: The plan will be continued neb treatments, mucolytics. Pulmonary consultation, echocardiogra m and Cardiology evaluation, and serial reevaluation. We will continue antibiotics at this time as well. We will not be using steroids. We also continue the planned mild diuresis.
--- NOTE | 2017-02-02 09:37 | RAD ---
SINGLE VIEW OF THE CHEST: COMPARISON: 01/20/17. HISTORY: Difficulty breathing and dyspnea. FINDINGS: A single view of the chest shows an enlarged cardiomediastinal silhouette. There are multifocal opa cities in the bilateral lower lobes consistent with multifocal infiltrates. Small pleural effusions may also be present. IMPRESSION: Bilateral lower lobe infiltrates. POS: [facility]
[2017-02-02] MEDS: Insulin Detemir 100 UNITS/ML 20 UNITS in Pre-Filled Syringe 1 EACH SC SCH ×2 (09:58→20:35)
[2017-02-02] MEDS: Clopidogrel Bisulfate 75 MG TAB PO SCH (09:58)
[2017-02-02] MEDS: guaiFENesin ER 600 MG TAB PO SCH ×2 (09:58→20:34)
[2017-02-02] MEDS: metFORMIN 500 MG TAB PO SCH ×2 (09:59→20:35)
[2017-02-02] MEDS: Lisinopril 20 MG TAB PO SCH (09:59)
[2017-02-02] MEDS: hydrALAZINE 25 MG TAB PO SCH ×3 (09:59→20:34)
[2017-02-02] MEDS: Finasteride 5 MG TAB PO SCH (10:00)
[2017-02-02] MEDS: Gabapentin 300 MG CAP PO SCH ×3 (10:00→20:34)
[2017-02-02] MEDS: Amlodipine 10 MG TAB PO SCH (10:01)
[2017-02-02] MEDS: Tamsulosin HCl 0.4 MG CAP PO SCH (10:01)
[2017-02-02] MEDS: Carvedilol 25 MG TAB PO SCH ×2 (10:01→20:35)
[2017-02-02] MEDS: Furosemide 20 MG/2 ML VIAL SLOW IVP SCH ×2 (10:01→15:05)
[2017-02-02] MEDS: Insulin Regular 300 UNITS/3 ML VIAL SC PRN (12:19)
--- NOTE | 2017-02-02 16:43 | CON ---
DATE OF CONSULTATION: 02/02/2017 DATE OF ADMISSION: 02/02/2017 CARDIOLOGY CONSULT NOTE INDICATION FOR CONSULTATION: A 61-year-old patient with a history of acute respiratory failure, pne umonia, and possible congestive heart failure. HISTORY OF PRESENT ILLNESS: This is a very pleasant 61-year-old gentleman who has some problems wit h speaking Jordanian, but speaks Cymro, has had a history in admission of pneumonia. He recently wa s seen, I believe in the primary care physician's office was diagnosed with pneumonia and was starte d on antibiotics; however, he became worse, presented to the hospital. He actually called 911 and w as taken to the hospital and was found to be in acute respiratory failure. He was given nebulizer t reatments. He had improved before he arrived in the emergency room. Since that time in the emergen cy room, I believe he was put on a BiPAP mask and he has been stable since that time. Today, he is feeling much better. He is off the BiPAP mask. His white count was over 20,000. I concern that he may have had some congestive heart failure symptoms. This gentleman underwent a cardiac catheteriz ation that was performed in 2008. He was found to have single-vessel coronary artery disease with l eft anterior descending artery stenosis 50% with a normal ejection fraction. On his last admission 12/2016, he had an echocardiogram performed, which showed ejection fraction of 60%-65% with mild terese ral and tricuspid valve regurgitation and was dictated as a normal diastolic function. There is no indication that patient has any congestive heart failure at this time and appears to be more of an a cute pneumonia and COPD exacerbation. He does have history of peripheral vascular disease and has u ndergone bilateral AKAs due to the peripheral vascular disease, which most likely is associated with his diabetes and history of tobacco abuse. He did stop smoking about 10 years ago. He underwent b ilateral amputation back in 2014. At this time, he is stable. His cardiac enzymes are negative. E KG is unremarkable for any acute changes. He does have decreased R-wave progression in V1 through V 4, which most likely is compatible with left ventricular hypertrophy. There are no acute ST segment changes. PAST MEDICAL HISTORY: Significant for the diabetes, bilateral AKAs, respiratory failure, some histo ry of congestive heart failure, which I did not see any documentation of this. His last echocardiog maye showed normal ejection fraction, no evidence of diastolic dysfunction. He does have peripheral vascular disease and has undergone stent placements in the past, also but then apparently underwent bilateral AKAs. He has benign prostatic hypertrophy. He has a history of hypertension, dyslipidemi a, history of tobacco abuse in the past, but he has stopped. SOCIAL HISTORY: There is no history of alcohol or tobacco abuse at this time. FAMILY HISTORY: Noncontributory. ALLERGIES: None. PRESENT MEDICATIONS: While in the hospital now include Tylenol, amlodipine, aspirin 81 mg a day, Li pitor 40 mg a day, Zithromax, Coreg 25 b.i.d., Plavix 75 mg a day, Proscar 5 mg a day, Lasix 20 mg b .i.d., gabapentin 300 mg t.i.d. He is on p.r.n. medications. He is also on insulin per sliding sca le. He is on nebulizer treatments. Lisinopril 40 mg a day, Zofran as needed p.r.n. He takes sertr jesenia 50 mg daily, Flomax 0.4 mg daily, and Rocephin 1 gram b.i.d. He is on Mucinex, hydralazine 25 mg t.i.d., and metformin 1000 mg b.i.d. ALLERGIES: None. REVIEW OF SYSTEMS: Difficult to obtain clearly, but the patient mainly complains of the shortness o f breath, otherwise relatively unremarkable review of systems. PHYSICAL EXAMINATION: GENERAL: Reveals an elderly gentleman. VITAL SIGNS: Blood pressure 146/57, heart rate is 77 and regular, respiratory rate is 15, O2 satura tion 98%. He is afebrile. HEENT: Shows head to be normocephalic and atraumatic. He does have some soft bilateral carotid bru its, which may be radiating from the aortic area. CHEST: Has bilateral rales and rhonchi bilaterally. CARDIOVASCULAR: Reveals a regular rate and rhythm. He has normal S1, S2. No S3, S4 were noted. T here were no significant murmurs, heaves, thrills, bruits, or rubs. He does have a soft systolic mu rmur over the aortic area, but most likely due to flow. Previous echocardiogram did not show any si gnificant valvular problems. ABDOMEN: Shows obesity with positive bowel sounds. No organomegaly or masses are noted. EXTREMITIES: He has bilateral AKAs. NEUROLOGIC: The patient appears to be intact, otherwise, he is unable to get out of the bed. He mo bilizes with a wheelchair. LABORATORY DATA: Shows no evidence of elevation of the cardiac enzymes. His BNP is 732. He does h ave a urinary tract infection. Lab today also shows hemoglobin of 8.7, creatinine is 1.1, white blo od cell count 20.4, platelet count 271. Potassium is 4.3. EKG shows a normal sinus rhythm, decreas ed R-wave progression in V1 through V4, most likely is compatible with left ventricular hypertrophy. Chest x-ray shows bilateral lower lobe infiltrates the right being greater than the left. IMPRESSION: 1. Acute pneumonia with chronic obstructive pulmonary disease exacerbation is being treated by anti biotic. He said he feels better already. We will continue nebulizer treatments also. 2. Diabetes, somewhat poor control of his diabetes, but with the antibiotics and the acute infectio n, this may be within reasonable limits. 3. Peripheral vascular disease. He has undergone bilateral [id number] amputations. He continu es to have upper extremity pulses, does have some bilateral carotid bruits. I will ask him to obtai n carotid ultrasounds at some point, but this can be done as an outpatient. 4. Urinary tract infection, which is being treated also with the Rocephin. 5. Hypertension. Blood pressure is under reasonable control at this time, but is slightly elevated . We will need to perhaps adjust his medications, but otherwise he remained stable at this time. 6. History of coronary artery disease. He does have a left anterior descending artery stenosis abo ut 50% in the past. He underwent cardiac catheterization at this hospital by Dr. Davis in 2009 an d again, he may need to undergo stress testing at some point, especially due to the diabetes, he may not develop chest pain, but this also can be done as an outpatient. He appears to be stable at thi s time. 7. Question of congestive heart failure. I do not see any indication that the patient has any luis estive heart failure at this time. The BNP is slightly elevated, but this may be also due to his ac alatna pulmonary problems with pneumonia. He has a normal ejection fraction with only mild mitral and tricuspid valve regurgitation and history of normal diastolic dysfunction.
--- NOTE | 2017-02-02 17:41 | CON ---
DATE OF SERVICE: 02/02/2017 SERVICE: Pulmonary Medicine. REASON FOR CONSULTATION: [facility] patient. HISTORY OF PRESENT ILLNESS: The patient is a 61-year-old male with past medical history si gnificant for possible COPD. He was once again in his usual state of health when he had increasing difficulty breathing. He presented to his primary care physician. He was treated for pneumonia. He only took one day of antibiotic before he got to the point where he presented to the emergency depa rtment. At that time, white blood cell count was elevated and chest x-ray had multifocal infiltrate s as well as findings consistent with possible volume overload. He was admitted to the ICU and doty siently initiated on BiPAP therapy. Overnight, he got a dose of Lasix and had significant amounts o f urine he produced. He felt better almost immediately. At this time, he is no longer struggling w ith his breathing and has essentially returned to his usual state of health. He is on room air and saturating just fine. PAST MEDICAL HISTORY: 1. COPD, possible. 2. Peripheral vascular disease. 3. Hypertension. 4. Dyslipidemia. 5. Type 2 diabetes mellitus. 6. BPH. 7. Major depressive disorder. PAST SURGICAL HISTORY: 1. Bilateral above knee amputations in 2015. 2. PCI to the right lower leg. SOCIAL HISTORY: No significant tobacco, alcohol or illicit drug use currently. He denies exposure to chemicals, dust, asbestos or tuberculosis. FAMILY HISTORY: Noncontributory. ALLERGIES: No known drug allergies. MEDICATIONS: List of his inpatient medications was reviewed. A couple of small updates were made at this time. REVIEW OF SYSTEMS: General, head, eyes, ears, nose, throat, cardiovascular, respiratory, GI, , mu sculoskeletal, neurologic and skin is negative except as mentioned in the HPI. PHYSICAL EXAMINATION: VITAL SIGNS: Afebrile, pulse 77, blood pressure 146/57, respirations 15, saturation 98% on 2 liters nasal cannula. GENERAL: Patient is awake and alert, in no apparent distress. LUNGS: Decent air entry with no prolonged expiratory phase. There are some depending crackles pres ent, but I really do not appreciate any wheezing or rhonchi today. HEART: Normal rate, regular. ABDOMEN: Soft, nontender, nondistended, bowel sounds positive. MUSCULOSKELETAL: No cyanosis or clubbing. No pitting in the bilateral lower extremities. They are surgically absent. Either way, he does not have pitting throughout. : Smith catheter in place. NEUROLOGIC: Grossly nonfocal. LABORATORY DATA: WBC 20.4, hemoglobin 8.7, platelets 271,000. Neutrophil count is 84% with 11% ban ds. INR 1.2. Creatinine 1.11. Basic metabolic profile is otherwise unremarkable. BNP 732 which i s close to where he was 2 weeks ago. Cardiac enzymes negative x1. Glucose ranges from 208-246. Ur inalysis is positive for white blood cells and leukocyte esterase. IMAGING: Chest x-ray demonstrates multifocal interstitial and alveolar opacifications. There is al so massive cardiomegaly present in cephalization. ASSESSMENT: 1. Acute hypoxic respiratory failure, resolved. 2. Healthcare-associated pneumonia. 3. Chronic obstructive pulmonary disease with acute exacerbation, possible. 4. Obstructive sleep apnea, suspected. 5. Volume overload state, despite negative echocardiogram recently. PLAN: The patient has basically dramatically bounced back from his hypoxemic event overnight sugges ting that volume was a major contributor to this patient's presentation. That being said, I agree w ith antibiotics which can be discontinued after total duration of 7 days. The patient has already m dejan dramatic response to our current therapy. As such, I see no need to escalate to healthcare asso ciated coverage. His volume overload state is curious. The synthetic function of the liver seems t o be fairly intact. His echocardiogram from 2 weeks ago was essentially normal. He does not have a ny nephrotic range proteinuria. The patient does not report excessive use of salt at this time. He may benefit from evaluation for sleep apnea in the outpatient setting. Either way, Pulmonary Criti tori Care will continue to follow while the patient remains in this hospital. He is stable for trans ition out of the IMCU to the telemetry unit.
[2017-02-02] MEDS: Atorvastatin Calcium 40 MG TAB PO SCH (20:35)
[2017-02-02] MEDS: Acetaminophen 325 MG TAB PO PRN (23:17)
[2017-02-03] MEDS: Acetaminophen 325 MG TAB PO PRN ×4 (04:44→23:59)
[2017-02-03 04:46] LABS: #Lymphocytes 0.7 thou/uL (1.20-3.40); #Monocytes 0.6 thou/uL (0.11-0.59); #Neutrophils 10.9 thou/uL (1.40-6.50); %Basophils 0.1 % (0.0-1.0); %Eosinophils 0.1 % (0.0-10.0); %Lymphocytes 5.9 % (21.0-51.0); %Monocytes 4.6 % (0.0-10.0); Hematocrit 22.5 % (42.0-52.0); Mean Platelet Volume 7.5 fL (7.4-10.4); Red Blood Cell (RBC) Count 2.48 mill/uL (4.70-6.10); White Blood Cell (WBC) Count 12.1 thou/uL (4.8-10.8)
[2017-02-03] MEDS ORDERED: cefTRIAXone\\ROCEPHIN 1 GM, Syringe 0.4 ML in Sterile Water 9.6 ML SLOW IVP SCH (05:00)
[2017-02-03 05:06] LABS: Anion Gap 14 mmol/L (10-20); BUN (Urea Nitrogen) 42 mg/dL (8.4-25.7); Calc. Creatinine Clearance 90 mL/min (70-130); Calcium 8.7 mg/dL (7.8-10.44); Carbon Dioxide 22 mmol/L (23-31); Chloride 108 mmol/L (98-107); Estimated GFR-MDRD 73
[2017-02-03] MEDS ORDERED: Azithromycin 500 MG in Sodium Chloride 0.9% 250 ML 250 ML IVPB SCH (06:00)
[2017-02-03] MEDS: Gabapentin 300 MG CAP PO SCH ×3 (08:13→21:07)
[2017-02-03] MEDS: Amlodipine 10 MG TAB PO SCH (08:14)
[2017-02-03] MEDS: Carvedilol 25 MG TAB PO SCH ×2 (08:14→21:07)
[2017-02-03] MEDS: Tamsulosin HCl 0.4 MG CAP PO SCH (08:14)
[2017-02-03] MEDS: guaiFENesin ER 600 MG TAB PO SCH ×2 (08:14→21:07)
[2017-02-03] MEDS: Lisinopril 20 MG TAB PO SCH (08:14)
[2017-02-03] MEDS: metFORMIN 500 MG TAB PO SCH ×2 (08:14→21:09)
[2017-02-03] MEDS: Clopidogrel Bisulfate 75 MG TAB PO SCH (08:15)
[2017-02-03] MEDS: hydrALAZINE 25 MG TAB PO SCH ×3 (08:15→21:08)
[2017-02-03] MEDS: Finasteride 5 MG TAB PO SCH (08:15)
[2017-02-03] MEDS: Insulin Detemir 100 UNITS/ML 20 UNITS in Pre-Filled Syringe 1 EACH SC SCH ×2 (09:25→21:08)
--- NOTE | 2017-02-03 09:29 | RAD ---
UPRIGHT PORTABLE CHEST 1 VIEW: HISTORY: A 61-year-old male with COPD exacerbation. COMPARISON: 02/02/17. Borderline heart size. Increased bronchovascular markings noted bilaterally. There has been defini te improvement in the previously noted interstitial edema and vascular congestion and pleural effusi ons. No new process. IMPRESSION: Improved vascular congestion, interstitial edema, and pleural effusions from prior study. Mild pers istent vascular congestion. Continue short-term followup for clearing or stability. POS: BENNY
--- NOTE | 2017-02-03 10:28 | PDOC.CTH ---
<Diana Silver - Last Filed: 02/03/17 10:25> Cardiology Progress Note - Subjective the pt was seen and examined. No overnight events. No cardiac complaints. The pt stated he can breath well with RA. - Objective Vital Signs Temp Pulse Resp BP BP Pulse Ox 02/03/17 08:14 146/63 H 02/03/17 07:36 97.8 F 62 18 100 02/03/17 07:17 97.8 F 62 18 149/65 H 93 L 02/03/17 07:07 72 16 92 L 02/03/17 04:00 97.9 F 70 18 150/79 H 94 L 02/02/17 23:09 98.5 F 86 20 151/59 H 97 Admit Weight 189 lb 3.2 oz Weight 191 lb 02/02/17 02/03/17 02/04/17 06:59 06:59 06:59 Intake Total 200 1080 360 Output Total 140 1710 Balance 60 -630 360 - Physical Examination General/Neuro: alert & oriented x3 Neck: no JVD present Lungs: CTA Heart: RRR Abdomen: soft Extremities: other: (Bilat. AKA) - Telemetry Telemetry Rhythm: SR 70s - Labs Result Diagrams: 02/03/17 04:23 02/03/17 04:23 Troponin/CKMB CK-MB (CK-2) 1.9 ng/mL (0-6.6) 02/02/17 02:24 Troponin I 0.011 ng/mL (< 0.028) 02/02/17 02:24 - Assessment/Plan 1. Acute Resp. failure 2ndary to PNA and COPD exacerbation - Improved; managed by Firer Glost Kiln 2. HTN - stable with current medication 3. DM type 2 - ACHS BG check with Insulin SS 4. PVD with Hx of PCI to Rt lower leg and Bilat AKA in 2014 - 5. UTI - On IV antibiotic; managed by PCP 6. CAD w/ hx of Cadiac cath in 2008 - Stable; on ASA, Plavix, BBlocker, IDALIA, and Statin; possible Stress test as outpt 7. Hyperlipidemia - on Statin med 8. Depression - stable; cont. monito MAR reviewed Review of Systems - Review of Systems Constitutional: reports: no symptoms reported EENTM: reports: no symptoms reported Respiratory: reports: no symptoms reported Cardiac (ROS): reports: no symptoms reported ABD/GI: reports: no symptoms reported : reports: no symptoms reported Musculoskeletal: reports: no symptoms reported Skin: reports: no symptoms reported <Kathia Branch - Last Filed: 02/03/17 15:56> Cardiology Progress Note - Objective Vital Signs Temp Pulse Resp BP BP Pulse Ox 02/03/17 15:50 97.0 F L 66 18 129/62 100 02/03/17 15:14 67 16 98 02/03/17 11:29 97.7 F 74 18 149/63 H 98 02/03/17 10:56 76 18 94 L 02/03/17 08:14 146/63 H 02/03/17 07:36 97.8 F 62 18 100 02/03/17 07:17 97.8 F 62 18 149/65 H 93 L 02/03/17 07:07 72 16 92 L 02/03/17 04:00 97.9 F 70 18 150/79 H 94 L Admit Weight 189 lb 3.2 oz Weight 191 lb 02/02/17 02/03/17 02/04/17 06:59 06:59 06:59 Intake Total 200 1080 600 Output Total 140 1710 Balance 60 -630 600 - Labs Result Diagrams: 02/03/17 04:23 02/03/17 04:23 Troponin/CKMB CK-MB (CK-2) 1.9 ng/mL (0-6.6) 02/02/17 02:24 Troponin I 0.011 ng/mL (< 0.028) 02/02/17 02:24 - Assessment/Plan Pt. was seen and eval. by me. He says he is feeling much better. I agree with the A/P by the LEAD BASED PAINT TECHNICIAN. Exam: some right sided rales in base. RRR.
--- NOTE | 2017-02-03 13:30 | PRG ---
DATE OF SERVICE: 02/03/2017 SERVICE: Pulmonary Medicine. INTERVAL HISTORY: Patient is doing outstanding from a respiratory standpoint. He has been transiti oned to room air. He is breathing perfectly, comfortably, and has no specific complaints of fevers, chills, nausea, or vomiting. He has got a good appetite. He is otherwise, no overnight events. PHYSICAL EXAMINATION: VITAL SIGNS: Afebrile, pulse 74, blood pressure 149/63, respirations 18, saturation 98% on room air . GENERAL: Patient is awake, alert, in no apparent distress. LUNGS: Decent air entry. Dependent crackles are minimal. There is no longer expiratory wheezing o r prolonged expiratory phase. He has excellent air entry. No rhonchi present. HEART: Normal rate, regular. ABDOMEN: Soft, nontender, nondistended. Bowel sounds are positive. MUSCULOSKELETAL: No cyanosis or clubbing. No pitting in the bilateral lower extremities any longer . His lower extremities are surgically absent. : Smith catheter is in place. NEUROLOGIC: Grossly nonfocal. LABORATORY DATA: WBC 12.1, hemoglobin 7.5, platelets 233,000, neutrophil count is 90%. INR 1.2. B icarb has improved to 22. Anion gap is stable. Creatinine is stable at 1.03. Basic metabolic prof ile is otherwise unremarkable. BNP was repeated and is actually up trending despite the fact that h e has more volume down. Urine cultures growing 2 separate Gram negative rods. Blood cultures x2 ar e unremarkable. IMAGING: Chest x-ray demonstrates improved vascular congestion and interstitial edema. Pleural eff usions are actually better as well. ASSESSMENT: 1. Acute hypoxic respiratory failure, resolved. 2. Healthcare-associated pneumonia, possible. 3. Chronic obstructive pulmonary disease with acute exacerbation, unlikely. 4. Obstructive sleep apnea, suspected. 5. Volume overload state. PLAN: The patient had clinical and radiographic improvement in a very short time period. This spea ks to the underlying issue being volume mediated. Ultimately, the patient is going to have to avoid salt or excessive p.o. intake of liquid. We can deescalate his antibiotics and only treat him for total duration of 7 days moving forward. Pulmonary will continue to follow while he remains in this location. In the outpatient setting, polysomnogram should be considered. I will continue to follo w for the next day, but we will transition him out of the ICU to the medical unit.
[2017-02-03] MEDS: Atorvastatin Calcium 40 MG TAB PO SCH (21:06)
[2017-02-03] MEDS: Cefdinir 300 MG CAP PO SCH (21:07)
[2017-02-04] MEDS: Furosemide 40 MG TAB PO SCH (08:23)
[2017-02-04] MEDS: Gabapentin 300 MG CAP PO SCH ×3 (08:24→21:34)
[2017-02-04] MEDS: Carvedilol 25 MG TAB PO SCH ×2 (08:24→21:33)
[2017-02-04] MEDS: metFORMIN 500 MG TAB PO SCH ×2 (08:24→21:35)
[2017-02-04] MEDS: Lisinopril 20 MG TAB PO SCH (08:24)
[2017-02-04] MEDS: hydrALAZINE 25 MG TAB PO SCH ×3 (08:25→21:34)
[2017-02-04] MEDS: Clopidogrel Bisulfate 75 MG TAB PO SCH (08:25)
[2017-02-04] MEDS: Azithromycin 250 MG TAB PO SCH (08:25)
[2017-02-04] MEDS: Tamsulosin HCl 0.4 MG CAP PO SCH (08:26)
[2017-02-04] MEDS: Finasteride 5 MG TAB PO SCH (08:26)
[2017-02-04] MEDS: guaiFENesin ER 600 MG TAB PO SCH ×2 (08:26→21:34)
[2017-02-04] MEDS: Cefdinir 300 MG CAP PO SCH ×2 (08:26→21:33)
[2017-02-04] MEDS: Amlodipine 10 MG TAB PO SCH (08:26)
[2017-02-04] MEDS: Insulin Detemir 100 UNITS/ML 20 UNITS in Pre-Filled Syringe 1 EACH SC SCH ×2 (09:20→21:45)
[2017-02-04] MEDS: Acetaminophen 325 MG TAB PO PRN ×3 (09:21→21:35)
[2017-02-04] MEDS ORDERED: hydrALAZINE 25 MG TAB PO SCH (09:30)
--- NOTE | 2017-02-04 13:05 | PDOC.CTH ---
<Diana Silver - Last Filed: 02/04/17 13:10> Cardiology Progress Note - Subjective The pt seen and examined. No overnight events. No cardiac complaints. Waiting for tx to rehab/SNF. - Objective Vital Signs Temp Pulse Resp BP BP BP Pulse Ox 02/04/17 11:00 97.3 F L 76 16 135/72 95 02/04/17 10:40 75 14 02/04/17 09:33 75 165/82 H 02/04/17 08:26 75 165/82 H 02/04/17 08:25 75 165/82 H 02/04/17 08:24 165/82 H 02/04/17 08:00 97.9 F 75 16 165/82 H 75 L 02/04/17 06:55 70 14 02/04/17 04:00 97.8 F 79 18 158/75 H 94 L Admit Weight 189 lb 3.2 oz Weight 191 lb 02/03/17 02/04/17 02/05/17 06:59 06:59 06:59 Intake Total 1080 860 180 Output Total 1710 1000 Balance -630 -140 180 - Physical Examination General/Neuro: alert & oriented x3 Neck: no JVD present Lungs: CTA (coarses) Heart: RRR Abdomen: soft Extremities: other: (Bilat AKA) - Labs Result Diagrams: 02/03/17 04:23 02/03/17 04:23 Troponin/CKMB CK-MB (CK-2) 1.9 ng/mL (0-6.6) 02/02/17 02:24 Troponin I 0.011 ng/mL (< 0.028) 02/02/17 02:24 - Assessment/Plan 1. Acute Resp. failure 2ndary to PNA and COPD exacerbation - Improved; managed by Office Director 2. HTN - stable with current medication 3. DM type 2 - ACHS BG check with Insulin SS; managed by PCP 4. PVD with Hx of PCI to Rt lower leg and Bilat AKA in 2014 - 5. UTI - On PO antibiotics; managed by PCP 6. CAD w/ hx of Cardiac cath in 2008 - Stable; on ASA, Plavix, BBlocker, IDALIA, and Statin; possible Stress test as outpt 7. Hyperlipidemia - on Statin med 8. Sleep Apnea - Possible polysomnography as outpt 9. Depression - stable; cont. monitor 10. Anemia - Hgb 7.5 today from 8.7 yesterday; recheck CBC tomorrow by PCP MAR reviewed Review of Systems - Review of Systems Constitutional: reports: no symptoms reported EENTM: reports: no symptoms reported Respiratory: reports: no symptoms reported Cardiac (ROS): reports: no symptoms reported ABD/GI: reports: no symptoms reported : reports: no symptoms reported Musculoskeletal: reports: no symptoms reported Skin: reports: no symptoms reported <Kathia Branch - Last Filed: 02/04/17 16:43> Cardiology Progress Note - Objective Vital Signs Temp Pulse Resp BP BP Pulse Ox 02/04/17 16:08 97.8 F 75 16 130/73 96 02/04/17 14:30 76 135/72 02/04/17 14:04 70 14 02/04/17 11:00 97.3 F L 76 16 135/72 95 02/04/17 10:40 75 14 02/04/17 09:33 75 165/82 H 02/04/17 08:26 75 165/82 H 02/04/17 08:25 75 165/82 H 02/04/17 08:24 165/82 H 02/04/17 08:00 97.9 F 75 16 165/82 H 75 L 02/04/17 06:55 70 14 Admit Weight 189 lb 3.2 oz Weight 191 lb 02/03/17 02/04/17 02/05/17 06:59 06:59 06:59 Intake Total 1080 860 360 Output Total 1710 1000 Balance -630 -140 360 - Labs Result Diagrams: 02/03/17 04:23 02/03/17 04:23 Troponin/CKMB CK-MB (CK-2) 1.9 ng/mL (0-6.6) 02/02/17 02:24 Troponin I 0.011 ng/mL (< 0.028) 02/02/17 02:24 - Assessment/Plan Pt. seen and eval. by me. He denies any cardiac complaints. Chest clear. RRR. I agree with the A/P by the VAMP CREASER. Anemia needs to be eval.
--- NOTE | 2017-02-04 15:08 | RAD ---
TWO VIEW CHEST: Comparison: 02-03-17 Indication: Pneumonia. FINDINGS: Cardiac silhouette is mildly enlarged. There is vascular congestion and interstitial prominence. No significant effusion or discrete pneumothorax. Degenerative change is present and there is vascular calcification. IMPRESSION: Findings most consistent with CHF and associated pulmonary edema. Superimposed pneumonitis is not ex cluded. Pneumonitis is not excluded. Recommend imaging follow up to confirm resolution. POS: СВЕТЛАНАH
--- NOTE | 2017-02-04 16:52 | PRG ---
DATE OF SERVICE: 02/04/2017 SERVICE: Pulmonary Medicine. INTERVAL HISTORY: The patient is doing fantastic from a respiratory standpoint. He currently denies any fevers, chills, nausea, vomiting or chest discomfort. Otherwise, he has returned to his usual state of health. He has no specific complaints of nausea, vomiting, or diarrhea. Otherwise, he notes his breathing has returned to baseline. PHYSICAL EXAMINATION: VITAL SIGNS: Afebrile, pulse 75, blood pressure 130/73, respirations 16, saturation 96% on room air. GENERAL: Patient is awake, alert, in no apparent distress. LUNGS: Excellent air entry with no prolonged expiratory phase or wheezing. Dependent crackles present. No rhonchi. HEART: Normal rate, regular. ABDOMEN: Soft, nontender, and nondistended. Bowel sounds positive. MUSCULOSKELETAL: No cyanosis or clubbing. Lower extremities are surgically absent. GENITOURINARY: Smith catheter in place. NEUROLOGIC: Grossly nonfocal. LABORATORY DATA: Blood sugar ranges from 95-129. Urine culture is growing multiple species. Blood cultures x2 were otherwise unremarkable. E. coli that was identified is certainly sensitive to fourth generation cephalosporin and third generation cephalosporin. IMAGING: Chest x-ray demonstrates findings consistent with volume overload and associated pulmonary edema. ASSESSMENT: 1. Acute hypoxic respiratory failure, resolved. 2. Healthcare-associated pneumonia, unlikely. 3. Chronic obstructive pulmonary disease with acute exacerbation, unlikely. 4. Obstructive sleep apnea, suspected. 5. Volume overload state. PLAN: We will continue diuresing the patient until he rise to euvolemia. His respiratory issues have essentially resolved. In the outpatient setting, if chest x-rays is repeated in 2-3 weeks and the infiltrate persists, pulmonary consultation should be considered. Outpatient polysomnogram should be considered. He no longer has requirements for outpatient pulmonary or critical opinion, so I will sign off. [facility]
[2017-02-04] MEDS: Atorvastatin Calcium 40 MG TAB PO SCH (21:33)
[2017-02-05] MEDS: Acetaminophen 325 MG TAB PO PRN ×3 (02:36→20:34)
[2017-02-05 04:54] LABS: #Basophils 0.1 thou/uL (0.0-0.2); #Eosinphils 0.3 thou/uL (0.0-0.7); #Lymphocytes 1.1 thou/uL (1.20-3.40); #Monocytes 0.8 thou/uL (0.11-0.59); #Neutrophils 7.1 thou/uL (1.40-6.50); %Basophils 0.7 % (0.0-1.0); %Eosinophils 3.7 % (0.0-10.0); %Lymphocytes 12.1 % (21.0-51.0); %Monocytes 8.4 % (0.0-10.0); Hematocrit 28.1 % (42.0-52.0); Mean Platelet Volume 7.5 fL (7.4-10.4); Red Blood Cell (RBC) Count 3.07 mill/uL (4.70-6.10); White Blood Cell (WBC) Count 9.4 thou/uL (4.8-10.8)
[2017-02-05 05:11] LABS: Anion Gap 15 mmol/L (10-20); BUN (Urea Nitrogen) 36 mg/dL (8.4-25.7); Calc. Creatinine Clearance 108 mL/min (70-130); Calcium 8.5 mg/dL (7.8-10.44); Carbon Dioxide 20 mmol/L (23-31); Chloride 109 mmol/L (98-107); Estimated GFR-MDRD 89
--- NOTE | 2017-02-05 08:38 | RAD ---
ONE VIEW CHEST: History: Low 02 saturation. Comparison: None. FINDINGS: Portable upright chest demonstrates a large cardiac silhouette. Atherosclerosis of the aorta. Pulmon lee vessels are slightly prominent. Patchy interstitial and alveolar opacities are present. No pneum othorax or osseous abnormality. IMPRESSION: 1. Patchy interstitial and alverolar opacities. 2. Atherosclerosis. POS: СВЕТЛАНА
--- NOTE | 2017-02-05 08:54 | PRG ---
DATE OF SERVICE: 02/05/2017 SUBJECTIVE: The patient is awake. He is alert x2. He is on oxygen. He denies any complaint. PHYSICAL EXAMINATION: GENERAL: He is awake. VITAL SIGNS: Blood pressure 150/70, pulse 80, respiration rate 18, afebrile. NECK: Supple with no increased JVP or carotid bruit. Carotid had good upstroke with no thyromegaly . COR: Regular rate and rhythm. CHEST: Bilateral rales. ABDOMEN: Soft, obese, nontender with normoactive bowel sounds. No bruit or organomegaly. EXTREMITIES: Bilateral amputation. NEUROLOGIC: He is awake and alert x2. LABORATORY DATA: Showed an H\T\H of 9.1 and 28.1, his white blood cells 9.4. His chest x-ray is pe nding. His echo showed EF to be 55-60%. ASSESSMENT: 1. Pneumonia. 2. Chronic obstructive pulmonary disease. 3. Acute hypoxic respiratory failure, resolved. 4. Obstructive sleep apnea. 5. Volume overload. 6. Urinary tract infection. 7. Diabetes. 8. Hypertension. 9. Bilateral amputation. PLAN: The patient will be continued as is. He is not ready to go home yet. We will continue the s arlen medication regime for now. We will follow up with lab in the morning. ADDENDUM: Earlier, before I saw the patient, the patient did have some shortness of breath and one episode of chest pain; however, when I went in the room, he did deny that. Cardiac enzymes currentl y are pending. Again, chest x-ray is pending also.
[2017-02-05 09:13] LABS: Troponin I Less than 0.010 ng/mL (< 0.028)
[2017-02-05] MEDS: Furosemide 40 MG TAB PO SCH (09:54)
[2017-02-05] MEDS: metFORMIN 500 MG TAB PO SCH ×2 (09:55→20:37)
[2017-02-05] MEDS: Gabapentin 300 MG CAP PO SCH ×3 (09:55→20:36)
[2017-02-05] MEDS: Tamsulosin HCl 0.4 MG CAP PO SCH (09:56)
[2017-02-05] MEDS: Cefdinir 300 MG CAP PO SCH ×2 (09:56→20:36)
[2017-02-05] MEDS: Finasteride 5 MG TAB PO SCH (09:56)
[2017-02-05] MEDS: guaiFENesin ER 600 MG TAB PO SCH ×2 (09:57→20:36)
[2017-02-05] MEDS: Clopidogrel Bisulfate 75 MG TAB PO SCH (09:58)
[2017-02-05] MEDS: Azithromycin 250 MG TAB PO SCH (09:58)
[2017-02-05] MEDS: Insulin Detemir 100 UNITS/ML 20 UNITS in Pre-Filled Syringe 1 EACH SC SCH ×2 (09:59→20:37)
[2017-02-05] MEDS: Lisinopril 20 MG TAB PO SCH (10:07)
[2017-02-05] MEDS: hydrALAZINE 25 MG TAB PO SCH ×3 (10:07→20:35)
[2017-02-05] MEDS: Carvedilol 25 MG TAB PO SCH ×2 (10:08→20:36)
[2017-02-05] MEDS: Amlodipine 10 MG TAB PO SCH (10:08)
--- NOTE | 2017-02-05 10:46 | PDOC.CTH ---
<Diana Silver - Last Filed: 02/05/17 10:44> Cardiology Progress Note - Subjective The pt seen and examined. No overnight events. Per PCP's note, he complained of CP x1 with SOB in this AM; his CE was negative. At this moment, the pt denied SOB, CP or discomfort in his chest or other cardiac complaints. - Objective Vital Signs Temp Pulse Resp BP BP BP Pulse Ox 02/05/17 10:08 72 153/75 H 02/05/17 10:07 72 153/75 H 02/05/17 09:48 61 14 99 02/05/17 08:00 59 L 18 117/66 02/05/17 06:32 67 14 97 02/05/17 05:15 72 12 91 L 02/05/17 04:00 97.4 F L 81 18 157/70 H 93 L 02/05/17 00:44 96 02/05/17 00:00 98.0 F 81 18 150/74 H 95 Admit Weight 189 lb 3.2 oz Weight 191 lb 02/04/17 02/05/17 02/06/17 06:59 06:59 06:59 Intake Total 860 1040 Output Total 1000 2350 Balance -140 -1310 - Physical Examination General/Neuro: alert & oriented x3 Neck: no JVD present Lungs: other: (coases and diminished at bases, Rt > Lt) Heart: RRR Abdomen: soft Extremities: other: (Bilat AKA) - Labs Result Diagrams: 02/05/17 04:29 02/05/17 04:29 Troponin/CKMB CK-MB (CK-2) 1.5 ng/mL (0-6.6) 02/05/17 08:31 Troponin I Less than 0.010 ng/mL (< 0.028) 02/05/17 08:31 - Assessment/Plan 1. Acute Resp. failure 2ndary to PNA and COPD exacerbation - Still on 2LNC due to low O2sat per the pt; diminished at dase of Rt lobe; managed by Tieing Machine Operator 2. HTN - stable with current medication 3. DM type 2 - Hypoglycemia this AM; stable at this time; ACHS BG check with Insulin SS; managed by PCP 4. PVD with Hx of PCI to Rt lower leg and Bilat AKA in 2014 - 5. UTI - On PO antibiotics; managed by PCP 6. CAD w/ hx of Cardiac cath in 2008 - CP x1 in this AM; Stable at this moment; CE this AM was negative; cont. ASA, Plavix, BBlocker, IDALIA, and Statin; possible Stress test as outpt 7. Hyperlipidemia - on Statin med 8. Sleep Apnea - Possible polysomnography as outpt 9. Depression - stable; cont. monitor 10. Anemia - Hgb 9.1 today from 7.5 yesterday; Cont. monitor MAR reviewed Review of Systems - Review of Systems Constitutional: reports: no symptoms reported EENTM: reports: no symptoms reported Respiratory: reports: no symptoms reported Cardiac (ROS): reports: no symptoms reported ABD/GI: reports: no symptoms reported : reports: no symptoms reported Skin: reports: no symptoms reported <Kathia Branch - Last Filed: 02/05/17 22:47> Cardiology Progress Note - Objective Vital Signs Temp Pulse Resp BP BP Pulse Ox 02/05/17 20:35 95 135/65 02/05/17 20:00 98.4 F 95 16 135/65 95 02/05/17 18:52 90 12 98 02/05/17 16:02 97.8 F 91 18 156/74 H 97 02/05/17 16:00 91 156/74 H 02/05/17 13:51 80 16 97 02/05/17 11:39 97.3 F L 80 16 130/68 97 Admit Weight 189 lb 3.2 oz Weight 191 lb 02/04/17 02/05/17 02/06/17 06:59 06:59 06:59 Intake Total 860 1040 Output Total 1000 2350 850 Balance -140 -1310 -850 - Labs Result Diagrams: 02/05/17 04:29 02/05/17 04:29 Troponin/CKMB CK-MB (CK-2) 1.6 ng/mL (0-6.6) 02/05/17 16:49 Troponin I Less than 0.010 ng/mL (< 0.028) 02/05/17 16:49 - Assessment/Plan Pt. seen and eval. by me. I agree with the A/P by the GRINDER BRAKE LINING. He denied chest pain but the staff said he did have some discomfort earlier. No other complaints. Chest cleart. RRR. From a cardiac standpoint he could be d/c'd.
[2017-02-05 11:46] LABS: Troponin I Less than 0.010 ng/mL (< 0.028)
[2017-02-05 14:36] LABS: Troponin I Less than 0.010 ng/mL (< 0.028)
[2017-02-05 17:39] LABS: Troponin I Less than 0.010 ng/mL (< 0.028)
[2017-02-05] MEDS: Insulin Regular 300 UNITS/3 ML VIAL SC PRN (18:28)
[2017-02-05] MEDS: Atorvastatin Calcium 40 MG TAB PO SCH (20:36)
[2017-02-06] MEDS: traMADol HCl 50 MG TAB PO PRN ×2 (01:09→05:54)
[2017-02-06 04:37] LABS: #Eosinphils 0.2 thou/uL (0.0-0.7); #Lymphocytes 1.1 thou/uL (1.20-3.40); #Monocytes 0.5 thou/uL (0.11-0.59); #Neutrophils 6.3 thou/uL (1.40-6.50); %Basophils 0.3 % (0.0-1.0); %Eosinophils 2.8 % (0.0-10.0); %Lymphocytes 13.3 % (21.0-51.0); %Monocytes 6.1 % (0.0-10.0); Hematocrit 22.8 % (42.0-52.0); Mean Platelet Volume 8.1 fL (7.4-10.4); Red Blood Cell (RBC) Count 2.49 mill/uL (4.70-6.10); White Blood Cell (WBC) Count 8.2 thou/uL (4.8-10.8)
[2017-02-06 04:59] LABS: ALT (SGPT) 7 U/L (8-55); AST (SGOT) 9 U/L (5-34); Alkaline Phosphatase 74 U/L (40-150); Anion Gap 12 mmol/L (10-20); BUN (Urea Nitrogen) 35 mg/dL (8.4-25.7); Bilirubin, Total 0.3 mg/dL (0.2-1.2); Calc. Creatinine Clearance 98 mL/min (70-130); Carbon Dioxide 23 mmol/L (23-31); Chloride 108 mmol/L (98-107); Estimated GFR-MDRD 79; Globulin 2.9 g/dL (2.4-3.5); Protein, Total 5.9 g/dL (5.8-8.1)
[2017-02-06 08:15] VITALS: TEMP 98
[2017-02-06] MEDS: Lisinopril 20 MG TAB PO SCH (09:14)
[2017-02-06] MEDS: Gabapentin 300 MG CAP PO SCH (09:14)
[2017-02-06] MEDS: Insulin Detemir 100 UNITS/ML 20 UNITS in Pre-Filled Syringe 1 EACH SC SCH (09:14)
[2017-02-06] MEDS: guaiFENesin ER 600 MG TAB PO SCH (09:14)
[2017-02-06] MEDS: Amlodipine 10 MG TAB PO SCH (09:14)
[2017-02-06] MEDS: Carvedilol 25 MG TAB PO SCH (09:14)
[2017-02-06] MEDS: Cefdinir 300 MG CAP PO SCH (09:14)
[2017-02-06] MEDS: Finasteride 5 MG TAB PO SCH (09:14)
[2017-02-06] MEDS: Azithromycin 250 MG TAB PO SCH (09:14)
[2017-02-06] MEDS: Clopidogrel Bisulfate 75 MG TAB PO SCH (09:14)
[2017-02-06] MEDS: Tamsulosin HCl 0.4 MG CAP PO SCH (09:14)
[2017-02-06] MEDS: metFORMIN 500 MG TAB PO SCH (09:14)
[2017-02-06] MEDS: hydrALAZINE 25 MG TAB PO SCH (09:14)
[2017-02-06] MEDS: Furosemide 40 MG TAB PO SCH (09:14)
[2017-02-06 15:16] VITALS: BP 113/86
--- NOTE | 2017-03-22 15:00 | EKG ---
Test Reason : Blood Pressure : / mmHG Vent. Rate : 097 BPM Atrial Rate : 097 BPM P-R Int : 150 ms QRS Dur : 080 ms QT Int : 338 ms P-R-T Axes : 033 -08 098 degrees QTc Int : 429 ms Normal sinus rhythm Left ventricular hypertrophy with repolarization abnormality Abnormal ECG Confirmed by GLADYS TREVINO, JEAN-PIERRE Benedict ([id number]), editorial writer VASILE ALICEA ([id number]) on 03/22/2017 2:59:45 PM Referred By: Confirmed By:JEAN-PIERRE GRAHAM MD
== END 2017-02-06 14:09 | disposition home health service (06) | DRG 193 ==
LOC: ERS 01:53 → IMCU/EMU 03:20 → T4-B 02-03 17:02
PROVIDERS: ADMIT Specialist; ATTEND Specialist
PROC: 5A09357 Assistance with Respiratory Ventilation, Less than 24 Consecutive Hours, Continuous Positive Airway Pressure (ICD-10-PCS; principal; 2017-02-02)
DX: J18.9 Pneumonia, unspecified organism (principal); J96.01 Acute respiratory failure with hypoxia; J44.0 Chronic obstructive pulmonary disease with (acute) lower respiratory infection; N39.0 Urinary tract infection, site not specified; I50.9 Heart failure, unspecified; I11.0 Hypertensive heart disease with heart failure; Z87.891 Personal history of nicotine dependence; J20.9 Acute bronchitis, unspecified; E11.51 Type 2 diabetes mellitus with diabetic peripheral angiopathy without gangrene; Z89.612 Acquired absence of left leg above knee; Z89.611 Acquired absence of right leg above knee; G47.33 Obstructive sleep apnea (adult) (pediatric); E87.70 Fluid overload, unspecified; D64.9 Anemia, unspecified; I25.10 Atherosclerotic heart disease of native coronary artery without angina pectoris; E78.5 Hyperlipidemia, unspecified; F32.9 Major depressive disorder, single episode, unspecified; Z87.01 Personal history of pneumonia (recurrent)
CPT/HCPCS: 36415; 36416; 71010; 71020; 80048; 80053; 81003; 81015; 82553; 83036; 83880; 84484; 85025; 85610; 85730; 87040; 87077; 87086; 87186; 93005; 93306; 93798; 94640; 94660; 94760; 96374; A4216; J0456; J0696; J1815; J1940; J7050; J7620

== ENCOUNTER 2017-02-11 12:07 | Emergency (ER) | payer MEDICARE ==
[2017-02-11 12:43] LABS: #Eosinphils 0.2 thou/uL (0.0-0.7); #Lymphocytes 0.9 thou/uL (1.20-3.40); #Monocytes 0.4 thou/uL (0.11-0.59); #Neutrophils 7.2 thou/uL (1.40-6.50); %Basophils 0.2 % (0.0-1.0); %Eosinophils 2.1 % (0.0-10.0); %Lymphocytes 10.3 % (21.0-51.0); %Monocytes 4.6 % (0.0-10.0); Hematocrit 24.8 % (42.0-52.0); Mean Platelet Volume 7.1 fL (7.4-10.4); Red Blood Cell (RBC) Count 2.71 mill/uL (4.70-6.10); White Blood Cell (WBC) Count 8.7 thou/uL (4.8-10.8)
[2017-02-11 13:04] LABS: ALT (SGPT) Less than 7 U/L (8-55); AST (SGOT) 9 U/L (5-34); Alkaline Phosphatase 95 U/L (40-150); Anion Gap 12 mmol/L (10-20); BUN (Urea Nitrogen) 20 mg/dL (8.4-25.7); Bilirubin, Total 0.5 mg/dL (0.2-1.2); Calc. Creatinine Clearance 0 mL/min (70-130); Calcium 8.4 mg/dL (7.8-10.44); Carbon Dioxide 24 mmol/L (23-31); Chloride 111 mmol/L (98-107); Estimated GFR-MDRD 82; Globulin 3.1 g/dL (2.4-3.5); Protein, Total 6.6 g/dL (5.8-8.1)
[2017-02-11 13:09] LABS: Troponin I Less than 0.010 ng/mL (< 0.028)
[2017-02-11] MEDS ORDERED: Azithromycin 250 MG TAB ONE (14:41)
[2017-02-11] MEDS ORDERED: Furosemide 40 MG/4 ML VIAL ONE (14:41)
--- NOTE | 2017-02-11 14:41 | RAD ---
CHEST PA AND LATERAL: History: 61-year-old male with dyspnea. Comparison: 02-04-17 FINDINGS: Minimal cardiomegaly. Bilateral vascular congestion with bilateral pleural effusions. The amount of c ongestion and pleural effusions appears to have increased from 02-04-17. IMPRESSION: Cardiomegaly with bilateral vascular congestion and bilateral pleural effusions with cardiomegaly kanu wing progressive congestion and pleural effusions from prior study. No confluent pneumonia. POS: СВЕТЛАНА
== END 2017-02-11 14:55 | disposition home or self-care (01) ==
LOC: ERS 12:07
DX: E87.70 Fluid overload, unspecified (principal); J40 Bronchitis, not specified as acute or chronic; E11.9 Type 2 diabetes mellitus without complications; I25.2 Old myocardial infarction; I11.0 Hypertensive heart disease with heart failure; I50.9 Heart failure, unspecified; Z79.82 Long term (current) use of aspirin; Z79.899 Other long term (current) drug therapy
CPT/HCPCS: 36415; 71020; 80053; 82553; 83880; 84484; 85025; 93005; 94760; 96374; J1940; J7620

== ENCOUNTER 2017-02-13 06:39 | Inpatient (IN) | payer MEDICARE ==
[2017-02-13] MEDS ORDERED: Nitroglycerin 50 MG/250 ML BOT 250 ML ONE (06:57)
[2017-02-13 06:58] LABS: #Eosinphils 0.2 thou/uL (0.0-0.7); #Lymphocytes 1.2 thou/uL (1.20-3.40); #Monocytes 0.4 thou/uL (0.11-0.59); #Neutrophils 10.2 thou/uL (1.40-6.50); %Basophils 0.4 % (0.0-1.0); %Eosinophils 1.8 % (0.0-10.0); %Lymphocytes 9.7 % (21.0-51.0); %Monocytes 3.4 % (0.0-10.0); Hematocrit 27.3 % (42.0-52.0); Red Blood Cell (RBC) Count 2.96 mill/uL (4.70-6.10)
[2017-02-13 07:17] LABS: Lactic Acid - Sepsis 2.4 mmol/L (0.5-2.2)
[2017-02-13 07:19] LABS: Anion Gap 17 mmol/L (10-20); BUN (Urea Nitrogen) 18 mg/dL (8.4-25.7); Calc. Creatinine Clearance 0 mL/min (70-130); Calcium 8.8 mg/dL (7.8-10.44); Carbon Dioxide 20 mmol/L (23-31); Chloride 110 mmol/L (98-107); Estimated GFR-MDRD 74
[2017-02-13] MEDS ORDERED: Furosemide 40 MG/4 ML VIAL ONE (07:49)
[2017-02-13] MEDS ORDERED: methylPREDNISolone Sod Succ/PF 125 MG/2 ML VIAL ONE (08:43)
[2017-02-13] MEDS ORDERED: Sterile Water 10 ML ONE (08:43)
--- NOTE | 2017-02-13 08:56 | RAD ---
PORTABLE UPRIGHT FRONTAL CHEST RADIOGRAPH: Date: 02-13-17 Comparison: 02-03-14, 02-02-17 History: Shortness of breath, dyspnea. FINDINGS: There is pulmonary vascular congestion with perihilar and bibasilar interstitial prominence as well a s hazy airspace disease in the lung bases and perihilar regions. There has been no significant interv al change since the 02-02-17 exam. There is no pneumothorax. IMPRESSION: Persistent nonspecific interstitial and alveolar opacity, suggesting stable pulmonary edema. A degree of infectious pneumonitis or aspiration cannot be excluded. POS: [facility]
[2017-02-13] MEDS ORDERED: Azithromycin 500 MG VIAL ONE (09:20)
[2017-02-13] MEDS ORDERED: Azithromycin 250 MG TAB ONE (09:21)
[2017-02-13] MEDS ORDERED: Acetaminophen 325 MG TAB PO PRN ×2 (11:09→15:25)
[2017-02-13] MEDS ORDERED: Ondansetron HCl/PF 4 MG/2 ML Vial IVP PRN ×2 (11:09→15:26)
[2017-02-13] MEDS ORDERED: Ondansetron ODT 4 MG TAB PO PRN (11:09)
[2017-02-13] MEDS ORDERED: Lorazepam 0.5 MG TAB PO PRN (15:26)
[2017-02-13] MEDS ORDERED: Insulin Regular 300 UNITS/3 ML VIAL SC PRN (15:38)
[2017-02-13] MEDS ORDERED: Dextrose 5% in Water 1,000 ML IV PRN (15:38)
[2017-02-13] MEDS ORDERED: Dextrose 50% Abboject 50 ML SYRINGE IVP PRN (15:38)
[2017-02-13] MEDS: metFORMIN 500 MG TAB PO SCH (17:51)
[2017-02-13] MEDS: Furosemide 100 mg/100 ml in NS IVPB SCH (17:52)
--- NOTE | 2017-02-13 18:34 | HP ---
DATE OF ADMISSION: 02/13/2017 CHIEF COMPLAINT: Dyspnea with exacerbation of CHF. HISTORY OF PRESENT ILLNESS: The patient is a 61-year-old Maltese male who recently joined my practic e within the last month. He has already been in a hospital twice for dyspnea due to pneumonia, now C HF. He was hospitalized last earlier this month on 01/23/2017. The patient decided he did not want to take his Lasix for the last several days and ended up in the emergency room very dyspneic. He req uired CPAP on the way in, but after a brief diuresis and BiPAP, he felt improved. He could not be se nt home, however, because whenever his O2 supplement was lowered from 3 liters for a minute to 2 lite rs, he would desats into the high 80s, so he is put in for further evaluation and further diuresis. He has already been planned to have an outpatient Urology consult for urostomy tube and Cardiology co nsultation for an outpatient stress test and outpatient sleep study for probable obstructive sleep ap amaury, none of these have actually had time to take place but are in process. PAST MEDICAL HISTORY: Significant for severe peripheral bilateral vascular disease resulting in bila teral amputations, COPD, congestive heart failure, hypertension, coronary artery disease, BPH, depres irvin, dyslipidemia. The patient had catheterization in 2008. The patient also has a chronic anemia. PAST SURGICAL HISTORY: Includes the aforementioned bilateral AKA amputations and stent placements. PSYCHIATRIC HISTORY: Includes anxiety and depression. SOCIAL HISTORY: He is currently not smoking or drinking or using illicit drugs. ALLERGIES: No known drug allergies. CURRENT MEDICATIONS: On admission include gabapentin 300 mg t.i.d., metformin 1000 mg b.i.d., tamsul osin 0.4 mg q. day, Avodart 5 mg q. day, carvedilol 25 mg b.i.d., aspirin 81 mg b.i.d., Zoloft 50 mg q. day, amlodipine 10 mg q. day, atorvastatin 40 mg at bedtime, Levemir 20 units subcutaneous b.i.d., lisinopril 40 mg q. day, hydralazine 25 mg t.i.d., DuoNeb treatments p.r.n. He is finishing up a Z- Marlo and takes Lasix 40 mg q.8 h. only if feels like that, however, it was ordered q.a.m. REVIEW OF SYSTEMS: At the time of admission: Constitutional: Denies fever, chills, or fatigue. He is dyspneic with minimal exertion. HEENT: Negative for ears, eyes, nose, and throat. No lesions, cough, or drainage. Cardiovascular: Denies any chest pain or palpitations at this time. Respirator y: Short of breath with minimal exertion, occasional cough. Gastrointestinal: Negative for bleedin g, nausea, vomiting, diarrhea. Genitourinary: Negative for pain with dysuria or blood in urine or s tool. Musculoskeletal: In the upper extremities, he has no joint swelling or painful range of motio n. Skin: Denies any rashes or outbreak of lesions. Neurologic: Denies any trouble with mentation or headaches, blurred vision. Hematologic/Lymphatics: Denies any areas of swelling or edema. Psych iatric: He feels like his anxiety is still present. Does not feel as depressed due to the Zoloft. PHYSICAL EXAMINATION: At the time of admission: VITAL SIGNS: Blood pressure on admission 182/95, pulse 90, respirations 27, O2 sat 100% on BiPAP. GENERAL: This is a well-developed, well-nourished [place]-Aust[place] male, alert, oriented, cooperative, pleasant. HEENT: Normocephalic except for a large bulbous lipoma above the left eye, atraumatic. Pupils equal , round, and reactive to light with arcus senilis bilaterally. TMs, nares, pharynx are clear. NECK: Supple, trachea midline. CHEST: With rales up to mid scapula bilaterally. HEART: Regular rate and rhythm, no murmur. ABDOMEN: Soft, nontender without organomegaly. GENITOURINARY: Deferred. EXTREMITIES: The upper extremities are without clubbing, cyanosis, or edema, normal range of motion. At the lower extremities, he has bilateral AKA amputations. SKIN: Without acute rashes or lesions. NEUROLOGIC: Cranial nerves are intact. Unable to test gait and cerebellar function at this time. S ensory exam is generally intact. Mental status is baseline and clear and nonfocal. Cranial nerves a re intact. LABORATORY DATA: Lab work thus far shows WBCs at 12,000, hemoglobin 8.9, hematocrit 27.3, with plate lets at 331. Sodium 142, potassium 4.7, chloride 110, CO2 of 20, BUN 18, creatinine 1.02, with a glu cose of 208. BNP elevated at 539. Chest x-ray shows stable opacification of right lower lobe infilt rates felt to be probably stable pulmonary edema. ASSESSMENT: 1. Exacerbation of congestive heart failure. 2. Insulin-dependent diabetes. 3. Probable obstructive sleep apnea. 4. Coronary artery disease. 5. Peripheral vascular disease. 6. General noncompliance with medical care. PLAN: Will be IV Lasix drip. We will monitor his electrolytes, serially reevaluate him, and continu e his DuoNeb treatments. We will also see if he is a candidate for Entresto by asking Cardiology to see him.
--- NOTE | 2017-02-13 19:43 | CON ---
DATE OF CONSULTATION: 02/13/2017 REASON FOR CONSULTATION: Congestive heart failure. PRIMARY STREET LIGHT SERVICER: Dr. Usman Branch. HISTORY OF PRESENT ILLNESS: Mr. Galicia is a pleasant 61-year-old gentleman who was recently seen and e valuated by Dr. Usman Branch while in the hospital. He has a previous history of severe PVD, status pos t bilateral nkxhr-wua-oula amputation. He also underwent coronary angiography in [address] stenosis of the LAD estimated to 50%. His most recent admission also suggest LVEF of 55%-60% and likely diastolic dysfunction. He recently presented with an increased shortness of breath. No chest pain or pressure noted. He re cently moved from the [facility] where he states he had a cloth hand. PAST MEDICAL HISTORY: As above including COPD, diastolic heart failure, hypertension, BPH, depressio n, hyperlipidemia, chronic anemia. ALLERGIES: None. MEDICATIONS: Include metformin, gabapentin, tamsulosin, Avodart, carvedilol, aspirin, Zoloft, amlodi pine, atorvastatin, Levemir, lisinopril, hydrochlorothiazide, DuoNeb. REVIEW OF SYSTEMS: Ten-point review of systems is reviewed and as above, otherwise negative. PHYSICAL EXAMINATION: VITAL SIGNS: Blood pressure 175/77, pulse 90, temperature 97.9. GENERAL: Patient is a pleasant male who is in no acute distress. The patient appears his stated age . NEUROLOGIC: The patient is alert and oriented times 3 with no focal neurologic deficits. HEENT: Sclerae without icterus. Mouth has moist mucous membranes with normal pallor. NECK: No JVD. Carotid upstroke brisk. No bruits bilaterally. LUNGS: Crackles noted bilaterally. BACK: No scoliosis or kyphosis. CARDIAC: Regular rate and rhythm with normal S1 and S2. No S3 or S4 noted. No significant rubs, mur murs, thrills, or gallops noted throughout the precordium. PMI is not displaced. There is no parast ernal heave. ABDOMEN: Soft, nontender, nondistended. No peritoneal signs present. No hepatosplenomegaly. No abn ormal striae. EXTREMITIES: Bilateral AKA. SKIN: No gross abnormalities. PERTINENT LABORATORY DATA: Hemoglobin 8.9, creatinine 1.02. IMPRESSION: Acute on chronic diastolic heart failure. RECOMMENDATIONS: Patient has been given Lasix with improvement in symptoms. Would continue Plavix, carvedilol, atorvastatin, and aspirin. The patient is also on amlodipine for his blood pressure. Ma y consider adding a diuretic for his chronic blood pressure management. There is no need to proceed with a repeat echo given a most recent echo, 2 weeks ago. He may also suggest a noninvasive stress s tudy to assess for any areas of ischemia. He likely would be done during this hospitalization.
[2017-02-13] MEDS: Gabapentin 300 MG CAP PO SCH (20:48)
[2017-02-13] MEDS: hydrALAZINE 25 MG TAB PO SCH (20:49)
[2017-02-13] MEDS: Carvedilol 25 MG TAB PO SCH (20:49)
[2017-02-13] MEDS: Atorvastatin Calcium 40 MG TAB PO SCH (20:49)
[2017-02-13] MEDS: Insulin Detemir 100 UNITS/ML 20 UNITS in Pre-Filled Syringe 1 EACH SC SCH (20:49)
[2017-02-14] MEDS: Furosemide 100 mg/100 ml in NS IVPB SCH ×2 (03:58→14:52)
[2017-02-14 05:33] LABS: #Lymphocytes 0.7 thou/uL (1.20-3.40); #Monocytes 0.3 thou/uL (0.11-0.59); #Neutrophils 7.3 thou/uL (1.40-6.50); %Basophils 0.1 % (0.0-1.0); %Eosinophils 0.4 % (0.0-10.0); %Lymphocytes 8.3 % (21.0-51.0); %Monocytes 3.8 % (0.0-10.0); Hematocrit 22.3 % (42.0-52.0); Mean Platelet Volume 7.2 fL (7.4-10.4); Red Blood Cell (RBC) Count 2.44 mill/uL (4.70-6.10); White Blood Cell (WBC) Count 8.3 thou/uL (4.8-10.8)
[2017-02-14 05:49] LABS: Anion Gap 12 mmol/L (10-20); BUN (Urea Nitrogen) 19 mg/dL (8.4-25.7); Calc. Creatinine Clearance 100 mL/min (70-130); Calcium 8.6 mg/dL (7.8-10.44); Carbon Dioxide 24 mmol/L (23-31); Chloride 110 mmol/L (98-107); Estimated GFR-MDRD 83
[2017-02-14] MEDS: hydrALAZINE 25 MG TAB PO SCH ×3 (07:54→20:52)
[2017-02-14] MEDS: metFORMIN 500 MG TAB PO SCH ×2 (07:54→17:38)
[2017-02-14] MEDS: Gabapentin 300 MG CAP PO SCH ×3 (07:55→20:52)
[2017-02-14] MEDS: Tamsulosin HCl 0.4 MG CAP PO SCH (07:55)
[2017-02-14] MEDS: Amlodipine 10 MG TAB PO SCH (07:55)
[2017-02-14] MEDS: Clopidogrel Bisulfate 75 MG TAB PO SCH (07:55)
[2017-02-14] MEDS: Carvedilol 25 MG TAB PO SCH ×2 (07:55→20:52)
[2017-02-14] MEDS: Lisinopril 20 MG TAB PO SCH (07:55)
[2017-02-14] MEDS: Dutasteride 0.5 MG CAP PO SCH (07:56)
[2017-02-14] MEDS: Metolazone 5 MG TAB PO SCH (08:51)
[2017-02-14] MEDS: Insulin Detemir 100 UNITS/ML 20 UNITS in Pre-Filled Syringe 1 EACH SC SCH ×2 (08:51→20:53)
[2017-02-14] MEDS: Atorvastatin Calcium 40 MG TAB PO SCH (20:52)
[2017-02-14] MEDS ORDERED: Furosemide 20 MG/2 ML VIAL SLOW IVP SCH (23:15)
[2017-02-15] MEDS: Furosemide 100 mg/100 ml in NS IVPB SCH (01:34)
[2017-02-15 05:31] LABS: #Basophils 0.1 thou/uL (0.0-0.2); #Eosinphils 0.1 thou/uL (0.0-0.7); #Monocytes 0.5 thou/uL (0.11-0.59); #Neutrophils 8.1 thou/uL (1.40-6.50); %Basophils 0.5 % (0.0-1.0); %Eosinophils 1.1 % (0.0-10.0); %Lymphocytes 18.6 % (21.0-51.0); %Monocytes 4.9 % (0.0-10.0); Hematocrit 27.5 % (42.0-52.0); Mean Platelet Volume 7.1 fL (7.4-10.4); Red Blood Cell (RBC) Count 2.98 mill/uL (4.70-6.10); White Blood Cell (WBC) Count 10.8 thou/uL (4.8-10.8)
[2017-02-15 05:45] LABS: Anion Gap 14 mmol/L (10-20); BUN (Urea Nitrogen) 26 mg/dL (8.4-25.7); Calc. Creatinine Clearance 90 mL/min (70-130); Calcium 8.8 mg/dL (7.8-10.44); Carbon Dioxide 28 mmol/L (23-31); Chloride 105 mmol/L (98-107); Estimated GFR-MDRD 76
[2017-02-15] MEDS ORDERED: Furosemide 20 MG/2 ML VIAL SLOW IVP SCH (09:00)
[2017-02-15] MEDS: Gabapentin 300 MG CAP PO SCH ×3 (11:33→20:52)
[2017-02-15] MEDS: hydrALAZINE 25 MG TAB PO SCH ×3 (11:33→20:52)
[2017-02-15] MEDS: Tamsulosin HCl 0.4 MG CAP PO SCH (11:34)
[2017-02-15] MEDS: Amlodipine 10 MG TAB PO SCH (11:34)
[2017-02-15] MEDS: Metolazone 5 MG TAB PO SCH (11:34)
[2017-02-15] MEDS: Carvedilol 25 MG TAB PO SCH ×2 (11:34→20:53)
[2017-02-15] MEDS: Clopidogrel Bisulfate 75 MG TAB PO SCH (11:34)
[2017-02-15] MEDS: Dutasteride 0.5 MG CAP PO SCH (11:35)
[2017-02-15] MEDS: metFORMIN 500 MG TAB PO SCH ×2 (11:35→13:15)
[2017-02-15] MEDS: Insulin Detemir 100 UNITS/ML 20 UNITS in Pre-Filled Syringe 1 EACH SC SCH ×2 (11:35→13:15)
[2017-02-15] MEDS: Lisinopril 20 MG TAB PO SCH (11:35)
[2017-02-15] MEDS ORDERED: Furosemide 40 MG TAB PO SCH (13:30)
--- NOTE | 2017-02-15 14:07 | NM ---
MYOCARDIAL PERFUSION STUDY: Date: 02/15/17 HISTORY: CHF exacerbation. History of coronary artery disease, as well as peripheral vascular disease. Hyperte nsion and dyslipidemia. RADIOPHARMACEUTICALS: 30 mCi technetium-99m sestamibi, IV at stress. 9.7 mCi technetium-99m sestamibi, IV at rest. MEDICATIONS: 0.4 mg of Lexiscan, IV. FINDINGS: There is a very small area of diminished uptake of radiotracer seen in the distal anteroseptal wall o n both the resting and stress acquisitions. No reversible defect is seen between the stress and resti ng acquisitions. Gated images show hypokinesis involving the septum and inferior left ventricular wal l. There is normal ventricular wall thickening. The calculated left ventricular ejection fraction is 52%. IMPRESSION: 1. Probably normal myocardial perfusion study without evidence of a reversible defect seen to sugges t ischemia. Small mild fixed defect within the distal anteroseptal wall which may be related to soft tissue attenuation as there is normal ventricular wall motion and wall thickening in this region. 2. Hypokinesis involving the septum and inferior left ventricular wall. 3. Low normal LVEF of 52%. POS: [facility]
[2017-02-15 14:59] VITALS: BMI 29.6
[2017-02-15] MEDS ORDERED: Regadenoson 0.4 MG/5 ML SYRINGE ONE (15:41)
[2017-02-15] MEDS: Atorvastatin Calcium 40 MG TAB PO SCH (20:52)
[2017-02-16 05:28] LABS: #Eosinphils 0.2 thou/uL (0.0-0.7); #Lymphocytes 1.4 thou/uL (1.20-3.40); #Monocytes 0.5 thou/uL (0.11-0.59); #Neutrophils 6.9 thou/uL (1.40-6.50); %Basophils 0.4 % (0.0-1.0); %Eosinophils 2.5 % (0.0-10.0); %Lymphocytes 15.6 % (21.0-51.0); %Monocytes 5.4 % (0.0-10.0); Hematocrit 25.4 % (42.0-52.0); Mean Platelet Volume 6.9 fL (7.4-10.4)
[2017-02-16 06:05] LABS: Anion Gap 11 mmol/L (10-20); BUN (Urea Nitrogen) 30 mg/dL (8.4-25.7); Calc. Creatinine Clearance 81 mL/min (70-130); Calcium 8.2 mg/dL (7.8-10.44); Carbon Dioxide 31 mmol/L (23-31); Chloride 100 mmol/L (98-107); Estimated GFR-MDRD 69
[2017-02-16 07:31] VITALS: BP 168/69; TEMP 98.2
[2017-02-16] MEDS ORDERED: metFORMIN 500 MG TAB PO SCH (08:00)
[2017-02-16] MEDS: Lisinopril 20 MG TAB PO SCH (08:46)
[2017-02-16] MEDS: Carvedilol 25 MG TAB PO SCH (08:46)
[2017-02-16] MEDS: Tamsulosin HCl 0.4 MG CAP PO SCH (08:46)
[2017-02-16] MEDS: Dutasteride 0.5 MG CAP PO SCH (08:46)
[2017-02-16] MEDS: Amlodipine 10 MG TAB PO SCH (08:46)
[2017-02-16] MEDS: hydrALAZINE 25 MG TAB PO SCH (08:46)
[2017-02-16] MEDS: Clopidogrel Bisulfate 75 MG TAB PO SCH (08:47)
[2017-02-16] MEDS: Gabapentin 300 MG CAP PO SCH (08:47)
[2017-02-16] MEDS ORDERED: Insulin Detemir 100 UNITS/ML 20 UNITS in Pre-Filled Syringe 1 EACH SC SCH (09:00)
[2017-02-16] MEDS ORDERED: Furosemide 40 MG TAB PO SCH (09:00)
--- NOTE | 2017-03-23 12:46 | EKG ---
Test Reason : Blood Pressure : / mmHG Vent. Rate : 092 BPM Atrial Rate : 092 BPM P-R Int : 148 ms QRS Dur : 086 ms QT Int : 366 ms P-R-T Axes : 040 028 115 degrees QTc Int : 452 ms Normal sinus rhythm Cannot rule out Anterior infarct , age undetermined Abnormal ECG When compared with ECG of 10-JAN-2017 Normal axis , no acute changes Confirmed by SEAMUS SOTELO ([id number]), photo editor VASILE ALICEA ([id number]) on 03/23/2017 12:46:35 PM Referred By: Confirmed By:SEAMUS SOTELO
--- NOTE | 2017-03-23 13:35 | STRESS ---
Acquisition Time: 2017-02-15 09:55:47 Total Exercise Time: 00:01:00 Test Indications: CHF EXACERBATION Medications: Protocol: LEXISCAN Max HR: 084 BPM 53% of Pred: 158 BPM Max BP: 170/074 mmHG Max Work Load: 1.0 METS RESTING ECG: NORMAL SINUS RHYTHM AT 84 BPM WITH NON-SPECIFIC ST SEGMENT CHANGES SYMPTOMS: NONE NORMAL BP RESPONSE ECTOPY: NONE ECG STRESS: NO SIGNIFICANT CHANGES INTERPRETATION: INDETERMINATE ECG/AWAIT NUCLEAR IMAGES FOR DEFINITIVE DIAGNOSIS Confirmed by STEPHANIA DA SILVA MD ([id number]) on 03/23/2017 1:35:00 PM Referred By: MD Bryce PEDRO Confirmed By:STEPHANIA DA SILVA MD
== END 2017-02-16 11:08 | disposition home or self-care (01) | DRG 292 ==
LOC: ERS 06:39 → 2NO 10:57
PROVIDERS: ADMIT Specialist; ATTEND Specialist
PROC: 4A02XM4 Measurement of Cardiac Total Activity, External Approach (ICD-10-PCS; principal; 2017-02-15)
DX: I11.0 Hypertensive heart disease with heart failure (principal); I47.1 Supraventricular tachycardia; Z89.611 Acquired absence of right leg above knee; Z89.612 Acquired absence of left leg above knee; J44.9 Chronic obstructive pulmonary disease, unspecified; I50.33 Acute on chronic diastolic (congestive) heart failure; E11.9 Type 2 diabetes mellitus without complications; G47.33 Obstructive sleep apnea (adult) (pediatric); I25.10 Atherosclerotic heart disease of native coronary artery without angina pectoris; I73.9 Peripheral vascular disease, unspecified; Z79.82 Long term (current) use of aspirin; Z79.4 Long term (current) use of insulin; Z91.19 Patient's noncompliance with other medical treatment and regimen
CPT/HCPCS: 36415; 36416; 71010; 78452; 80048; 83036; 83605; 83880; 84484; 85025; 86850; 86900; 86901; 93005; 93017; 94640; 94660; 96365; 96366; 96375; A4216; A9500; J0456; J1815; J1940; J2785; J2930; J7050; J7620

== ENCOUNTER 2017-12-05 15:11 | Day surgery (SDC) | payer MEDICARE, MEDICAID ==
[2017-12-06] MEDS ORDERED: Furosemide 40 MG/4 ML VIAL SLOW IVP SCH (09:30)
[2017-12-06] MEDS ORDERED: Furosemide 40 MG/4 ML VIAL ONE ×2 (10:10→11:50)
[2017-12-06] MEDS ORDERED: Metoprolol Tartrate 5 MG/5 ML VIAL ONE (10:16)
[2017-12-06] MEDS ORDERED: Labetalol HCl 100 MG/20 ML VIAL SLOW IVP SCH (10:30)
[2017-12-06 11:14] LABS: #Eosinphils 0.2 thou/uL (0.0-0.7); #Lymphocytes 0.7 thou/uL (1.20-3.40); #Monocytes 0.3 thou/uL (0.11-0.59); #Neutrophils 8.7 thou/uL (1.40-6.50); %Basophils 0.3 % (0.0-1.0); %Eosinophils 2.2 % (0.0-10.0); %Lymphocytes 6.6 % (21.0-51.0); %Neutrophils 87.9 % (42.0-75.0); Hemoglobin 9.9 g/dL (14.0-18.0); Mean Corpuscular HGB CONC 32.1 g/dL (32.0-36.0); Mean Corpuscular Hemoglobin 29.7 pg (27.0-31.0); Mean Corpuscular Volume 92.6 fL (78.0-98.0); Mean Platelet Volume 6.9 fL (7.4-10.4); Platelet Count 343 thou/uL (130-400); Red Blood Cell (RBC) Count 3.32 mill/uL (4.70-6.10); White Blood Cell (WBC) Count 9.9 thou/uL (4.8-10.8)
[2017-12-06 11:23] LABS: Lactic Acid 0.7 mmol/L (0.5-2.2)
[2017-12-06 11:30] LABS: ALT (SGPT) 7 U/L (8-55); AST (SGOT) 10 U/L (5-34); Albumin 3.9 g/dL (3.4-4.8); Alkaline Phosphatase 112 U/L (40-150); Anion Gap 14 mmol/L (10-20); BUN (Urea Nitrogen) 26 mg/dL (8.4-25.7); Bilirubin, Total 0.6 mg/dL (0.2-1.2); Calc. Creatinine Clearance 0 mL/min (70-130); Carbon Dioxide 18 mmol/L (23-31); Chloride 113 mmol/L (98-107); Estimated GFR-MDRD 68; Globulin 3.3 g/dL (2.4-3.5); Glucose 169 mg/dL (80-115); Magnesium 2.6 mg/dL (1.6-2.6); Phosphorus 4.5 mg/dL (2.3-4.7); Potassium 6.1 mmol/L (3.5-5.1); Protein, Total 7.2 g/dL (5.8-8.1); Sodium 139 mmol/L (136-145)
[2017-12-06 11:35] LABS: Troponin I Less than 0.010 ng/mL (< 0.028)
[2017-12-06 11:57] VITALS: TEMP 98.1
[2017-12-06] MEDS ORDERED: HumaLOG 300 UNITS/3 ML VIAL SC PRN (13:26)
[2017-12-06] MEDS ORDERED: Dextrose 50% Abboject 50 ML SYRINGE SLOW IVP PRN (13:26)
[2017-12-06] MEDS ORDERED: Dextrose 5% in Water 1,000 ML IV PRN (13:26)
--- NOTE | 2017-12-06 13:29 | CON ---
DATE OF CONSULTATION: 12/06/2017 SERVICE: Pulmonary Medicine. REASON FOR CONSULTATION: Respiratory failure. HISTORY OF PRESENT ILLNESS: The patient is a 62-year-old white male. By report, currently is on hos pice. That being said, he gets intermittent transfusions. His hemoglobin was low and he came into hospital for special surgery for transfusion. He got 2 units of blood yesterday. He did well overnight, but this mor fredy started having increasing respiratory difficulties associated with elevated blood pressures. He was hypoxemic. He was clearly in respiratory distress. As such, jose roberto hanny was called. I was near by and responded to provide my services. The patient had one word conversational dyspnea, and really could not relate any elements of the history at this point. He had accessory muscle use and was vis ibly uncomfortable. PAST MEDICAL HISTORY: 1. Chronic systolic heart failure. 2. Chronic obstructive pulmonary disease. 3. Hypertension. 4. Dyslipidemia. 5. Coronary artery disease. 6. Peripheral vascular disease, severe. 7. Benign prostate hyperplasia. 8. Major depressive disorder. 9. Anemia. 10. Type 2 diabetes mellitus. 11. Neuropathy secondary to diabetes. PAST SURGICAL HISTORY: 1. Above-knee amputation, right. 2. Above-knee amputation, left. SOCIAL HISTORY: Negative for alcohol, tobacco or illicit drug use. He currently was a resident of a nursing facility. FAMILY HISTORY: Noncontributory. ALLERGIES: No known drug allergies. MEDICATIONS: List of inpatient medications were reviewed. Multiple updates were made at this time. REVIEW OF SYSTEMS: This cannot be obtained, the patient currently has severe respiratory distress. PHYSICAL EXAMINATION: VITAL SIGNS: Afebrile, heart rate 77, blood pressure 202/100, respirations 20, saturation 100% on 3 liters nasal cannula. GENERAL: He is awake and alert. He is in severe respiratory distress. HEENT: Normocephalic, atraumatic. Sclerae are white, conjunctivae pink. Oral mucosa is moist witho ut lesions. LUNGS: Decent air entry. Crackles are present. There is extensive rhonchi and wheezing also identi fied. HEART: Normal rate, regular. ABDOMEN: Soft, nontender, nondistended. Bowel sounds positive. MUSCULOSKELETAL: No cyanosis or clubbing. Bilateral lower extremities are surgically absent. There is trace 1+ edema of the bilateral lower extremities. LABORATORY DATA: WBC 9.9, hemoglobin 9.9, platelets 343. Potassium 6.1. Creatinine 1.1. Basic met abolic profile and liver function studies are otherwise unremarkable. BNP 730, which is high for thi s patient. Lactate 0.7, cardiac enzymes negative x1. IMAGING: EKG demonstrates no findings consistent with acute infarction. ASSESSMENT: 1. Acute hypoxic respiratory failure. 2. Acute systolic heart failure. 3. Anemia, status post transfusion of 2 units of blood. 4. Chronic obstructive pulmonary disease with an acute exacerbation secondary to fluid. 5. Hypertensive emergency. DISCUSSION AND PLAN: We have done multiple maneuvers to stabilize the patient. He got several doses of Lasix, he was given labetalol for emergent blood pressure control and we gave him an urgent DuoNe b. I started to settle down a little bit. We are going to watch him very closely on the telemetry f anita for a couple of minutes. If he fails to recover, we will move him to the IMCU and initiate romel nvasive ventilation. Pulmonary Critical Care will continue to follow for the duration of the hospita l stay. That being said, once he is breathing comfortably back on room air, assuming we get some flu id off of him and get better control of his blood pressure, he be stable for transition home. Many o f his home medications will be restarted. CRITICAL CARE TIME: 30 minutes.
[2017-12-06] MEDS ORDERED: hydrALAZINE 25 MG TAB PO SCH (15:00)
[2017-12-06] MEDS ORDERED: Gabapentin 300 MG CAP PO SCH (15:00)
[2017-12-06 15:11] VITALS: BP 197/84
[2017-12-06] MEDS ORDERED: Carvedilol 25 MG TAB PO SCH (21:00)
[2017-12-06] MEDS ORDERED: Furosemide 40 MG TAB PO SCH (21:00)
[2017-12-07] MEDS ORDERED: Lisinopril 20 MG TAB PO SCH (09:00)
[2017-12-07] MEDS ORDERED: Tamsulosin HCl 0.4 MG CAP PO SCH (09:00)
[2017-12-07] MEDS ORDERED: Amlodipine 10 MG TAB PO SCH (09:00)
[2017-12-07] MEDS ORDERED: Clopidogrel Bisulfate 75 MG TAB PO SCH (09:00)
[2017-12-07] MEDS ORDERED: Finasteride 5 MG TAB PO SCH (09:00)
[2017-12-07] MEDS ORDERED: Ferrous Sulfate 325 MG TAB PO SCH (09:00)
[2017-12-07] MEDS ORDERED: Non-Formulary Item 1 EACH (Lisinopril [Lisinopril] 40 MG) PO SCH (09:00)
[2017-12-07] MEDS ORDERED: Aspirin 81 mg Enteric Coated Tablet PO SCH (09:00)
[2017-12-07] MEDS ORDERED: Non-Formulary Item 1 EACH (Sertraline Hcl [Sertraline Hcl] 50 MG) PO SCH (09:00)
[2017-12-07] MEDS ORDERED: Alogliptin 25 MG TAB PO SCH (09:00)
[2017-12-07] MEDS ORDERED: Atorvastatin Calcium 40 MG TAB PO SCH (09:00)
[2017-12-07] MEDS ORDERED: Dutasteride 0.5 MG CAP PO SCH (09:00)
--- NOTE | 2017-12-09 10:10 | EKG ---
Test Reason : CODE GREEN Blood Pressure : / mmHG Vent. Rate : 085 BPM Atrial Rate : 085 BPM P-R Int : 176 ms QRS Dur : 086 ms QT Int : 346 ms P-R-T Axes : 040 024 116 degrees QTc Int : 411 ms Normal sinus rhythm Possible Anterior infarct (cited on or before 11-FEB-2017) Abnormal ECG When compared with ECG of 13-FEB-2017 06:51, QT has shortened Confirmed by DR. Olya LUGO ([id number]) on 12/09/2017 10:09:42 AM Referred By: CARMEN Confirmed By:DR. Olya LUGO
== END 2017-12-06 15:49 ==
LOC: ONC/OP 15:11 → ONC 15:45 → 2NO 16:27 → ONC/OP 12-06 15:49
PROVIDERS: ATTEND Specialist
DX: J96.01 Acute respiratory failure with hypoxia (principal); D64.9 Anemia, unspecified; I11.0 Hypertensive heart disease with heart failure; I50.23 Acute on chronic systolic (congestive) heart failure; J44.9 Chronic obstructive pulmonary disease, unspecified; E78.5 Hyperlipidemia, unspecified; I25.10 Atherosclerotic heart disease of native coronary artery without angina pectoris; N40.0 Benign prostatic hyperplasia without lower urinary tract symptoms; F32.9 Major depressive disorder, single episode, unspecified; E11.40 Type 2 diabetes mellitus with diabetic neuropathy, unspecified; I16.1 Hypertensive emergency; Z79.4 Long term (current) use of insulin; Z79.02 Long term (current) use of antithrombotics/antiplatelets; Z79.82 Long term (current) use of aspirin; Z79.899 Other long term (current) drug therapy; Z89.611 Acquired absence of right leg above knee; Z89.612 Acquired absence of left leg above knee
CPT/HCPCS: 36415; 36416; 36430; 80053; 83605; 83735; 83880; 84100; 84484; 85025; 86850; 86900; 86901; 93005; 93010; J1940; P9016

== ENCOUNTER 2018-03-05 07:25 | Inpatient (IN) | payer MEDICARE ==
[2018-03-05] MEDS ORDERED: Acetaminophen 325 MG TAB ONE (07:47)
[2018-03-05] MEDS ORDERED: Ondansetron PF 4 MG/2 ML Vial ONE (07:47)
[2018-03-05 08:05] LABS: #Lymphocytes 0.4 thou/uL (1.20-3.40); #Monocytes 0.2 thou/uL (0.11-0.59); #Neutrophils 5.9 thou/uL (1.40-6.50); %Basophils 0.1 % (0.0-1.0); %Eosinophils 0.6 % (0.0-10.0); %Lymphocytes 6.4 % (21.0-51.0); %Monocytes 3.4 % (0.0-10.0); %Neutrophils 89.5 % (42.0-75.0); Hemoglobin 9.5 g/dL (14.0-18.0); Mean Corpuscular HGB CONC 33.3 g/dL (32.0-36.0); Mean Corpuscular Hemoglobin 29.8 pg (27.0-31.0); Mean Corpuscular Volume 89.5 fL (78.0-98.0); Mean Platelet Volume 7.6 fL (7.4-10.4); Platelet Count 189 thou/uL (130-400); RBC Distribution Width 13.2 % (11.5-14.5); Red Blood Cell (RBC) Count 3.19 mill/uL (4.70-6.10); White Blood Cell (WBC) Count 6.6 thou/uL (4.8-10.8)
[2018-03-05 08:24] LABS: Bilirubin Negative (Negative); Blood, Urine Small (Negative); Clarity CLOUDY (Clear); Glucose, Urine (Dipstick) Negative (Negative); Leukocyte Negative (Negative); Nitrite Negative (Negative); Protein, Urine (Dipstick) 30 mg/dL (Neg-Trace); Specific Gravity, Urine 1.013 (1.002-1.036); Urobilinogen 0.2 mg/dL (0.2-1.0)
[2018-03-05 08:24] LABS: ALT (SGPT) Less than 7 U/L (8-55); AST (SGOT) 9 U/L (5-34); Albumin 3.6 g/dL (3.4-4.8); Alkaline Phosphatase 84 U/L (40-150); Anion Gap 14 mmol/L (10-20); BUN (Urea Nitrogen) 39 mg/dL (8.4-25.7); Bilirubin, Total 0.2 mg/dL (0.2-1.2); Calc. Creatinine Clearance 0 mL/min (70-130); Calcium 8.2 mg/dL (7.8-10.44); Carbon Dioxide 19 mmol/L (23-31); Chloride 115 mmol/L (98-107); Estimated GFR-MDRD 51; Globulin 2.6 g/dL (2.4-3.5); Glucose 136 mg/dL (80-115); Potassium 5.3 mmol/L (3.5-5.1); Protein, Total 6.2 g/dL (5.8-8.1); Sodium 143 mmol/L (136-145)
[2018-03-05 08:28] LABS: Bacteria/HPF None Seen HPF (None Seen); Hyaline Casts/LPF 0-3 HYALINE CAST LPF (0-3 Hyaline); Pathc Cast-AUWi Flag 0.87 (0-2.49); Squamous Epithelial 0-3 HPF (0-3); WBC/HPF 0-3 HPF (0-3)
--- NOTE | 2018-03-05 08:43 | RAD ---
FRONTAL RADIOGRAPH CHEST PORTABLE UPRIGHT: DATE: 03/05/2018. COMPARISON: 04/04/2017. HISTORY: Cough and fever. FINDINGS: No pneumothorax or large volume pleural effusion. Heart and mediastinal contours are grossly unremar kable. There is pulmonary vascular congestion. There is bilateral perihilar interstitial opacity wi th hazy airspace disease in the right base and right perihilar region. IMPRESSION: Hazy right-sided airspace disease with pulmonary vascular prominence. Findings may signify infectiou s pneumonitis for asymmetric pulmonary edema. Recommend followup PA and lateral imaging of the chest following treatment. POS: [facility]
[2018-03-05] MEDS ORDERED: Sodium Chloride 0.9% 100 ML ONE (08:58)
[2018-03-05] MEDS ORDERED: Piperacillin/Tazobactam 4.5 GM VIAL ONE (08:58)
[2018-03-05] MEDS ORDERED: Ibuprofen 800 MG TAB ONE (09:34)
[2018-03-05] MEDS ORDERED: Vancomycin HCl 1 GM in Premix Bag 1 BAG IVPB SCH (13:00)
[2018-03-05] MEDS ORDERED: Prevnar 13-Val Conj/PF 0.5 ML SYRINGE IM ONE (14:15)
[2018-03-05] MEDS ORDERED: Ondansetron PF 4 MG/2 ML Vial SLOW IVP PRN (18:35)
[2018-03-05] MEDS ORDERED: Piperacillin/Tazobactam 3.375 GM in Sodium Chloride 0.9% 100 ML IVPB SCH (18:45)
[2018-03-05] MEDS: Acetaminophen 325 MG TAB PO PRN (18:58)
[2018-03-05] MEDS ORDERED: Vancomycin HCl 750 MG in Sodium Chloride 0.9% 250 ML 250 ML IVPB SCH (19:30)
[2018-03-05] MEDS: Docusate Calcium (SURFAK) 240 MG CAP PO SCH (20:13)
[2018-03-05] MEDS: Tamsulosin HCl 0.4 MG CAP PO SCH (20:13)
[2018-03-05] MEDS: Carvedilol 25 MG TAB PO SCH (20:13)
[2018-03-05] MEDS: Gabapentin 300 MG CAP PO SCH (20:14)
[2018-03-05] MEDS: Finasteride 5 MG TAB PO SCH (20:14)
[2018-03-05] MEDS: Piperacillin/Tazobactam 3.375 GM in Sodium Chloride 0.9% 100 ML IVPB SCH (23:50)
--- NOTE | 2018-03-06 01:55 | HP ---
CHIEF COMPLAINT: On admission; pneumonia, SIRS, also found to have dyspnea and fever. HISTORY OF PRESENT ILLNESS: The patient is a 62-year-old [facility] patient with such severe peripheral vascular disease that he has had bilateral AKA amputations. He has had flash pulmonary edema for which he required resuscitation, intubation, and has actually been on hospice for quite some time, but then came off hospice after regaining his health and his appetite and prospering. This episode of illness began on the morning of admission where he awoke with shortness of breath, cough, and fever to 101.4. He had vomited 2 times and the [facility] contacted Dr. Knapp asking what to do. Dr. Knapp's suggestion was to come to [facility] ER for further evaluation. EMS picked him up from the [facility] noting an oxygen saturation of 83% and transported him to the emergency room where the ER physician examined him and noted him to be coughing, has history of emesis. He took a chest x-ray at which time it was evident that he had pneumonia. PAST MEDICAL HISTORY: Significant for the aforementioned coronary artery disease, severe congestive heart failure, myocardial infarction, lxa-kdjvzdc-cwucsuhog diabetes, GERD, severe BPH with history of obstruction, iron deficiency anemia, hyperlipidemia, hypertension; he has had a previous CVA; and severe peripheral vascular disease. He also has diabetic neuropathy and chronic anemia. PAST SURGICAL HISTORY: His previous surgeries include cardiovascular stents and peripheral vascular stents, heart catheterization in 2008, and bilateral AKA amputations after stent failures. PSYCHIATRIC HISTORY: Includes anxiety and depression. SOCIAL HISTORY: Due to [facility] placement, he is no longer smoking and drinking. He never used illicit drugs. ALLERGIES: HE HAS NO KNOWN DRUG ALLERGIES. REVIEW OF SYSTEMS: GENERAL: The patient is positive for malaise and fever generally. HEENT: Denies drainage from ears, nose, or throat or sores or lesions in such. NECK: Denies pain, painful range of motion or mass. CHEST: Has positive cough and dyspnea. HEART: Denies palpitations or chest pain. ABDOMEN: Confirms nausea and vomiting. No diarrhea. No pain. : Denies burning with urination, frequency, or blood in urine or stool. MUSCULOSKELETAL: Denies any new muscle or joint aches or pains. SKIN: No new rashes or lesions. NEUROLOGIC: No changes in mentation, areas or anesthesia or paresthesia. PSYCHIATRIC: Does not feel depressed at this time, however, anxious. MEDICATIONS: On admission include, 1. Gabapentin 300 mg b.i.d. 2. Metformin 500 mg daily. 3. Flomax 0.4 mg b.i.d. 4. Finasteride 5 mg daily. 5. Carvedilol 25 mg b.i.d. 6. Aspirin 81 mg daily. 7. Zoloft 100 mg daily. 8. Amlodipine 10 mg daily. 9. Hydralazine 50 mg t.i.d. 10. Lasix 40 mg q.a.m. 11. Losartan 100 mg daily. 12. Potassium 20 mEq daily. 13. Stool softeners. 14. Zantac 150 mg b.i.d. PHYSICAL EXAMINATION: At the time of admission: VITAL SIGNS: Blood pressure 131/74, pulse 105, respirations 23, rectal temperature 102, pain is 0, O2 saturation 95% on 2 L of oxygen. GENERAL: This is a febrile, somnolent male with poverty of speech. HEENT: Normocephalic and atraumatic. Pupils with diminished reactivity to light. Arcus senilis bilaterally. Mucous membranes somewhat dry. No bleeding. NECK: Supple. No adenopathy. CHEST: Rales and rhonchi diffusely. CARDIOVASCULAR: Regular rate and rhythm, tachycardic. ABDOMEN: Soft, nontender, unable to appreciate organomegaly. BACK: Straight. No rash or lesions. EXTREMITIES: Upper extremities without clubbing, cyanosis, or edema. Normal range of motion present. Lower extremities with bilateral AKAs. NEUROLOGIC: Cranial nerves are intact. Sensation is grossly intact. Mental status is somnolent. SKIN: No new rashes or lesions. LABORATORY DATA: The lab work shows WBCs at 6.6, hemoglobin 9.5, hematocrit 28.6, platelets are 189, 90% neutrophils, and 60% lymphocytes. Sodium is 143, potassium 5.3, chloride 115, CO2 of 19, BUN 39, creatinine 1.4 with GFR of 51, glucose of 136, lactic acid 1.8, and calcium 8.2. Total bilirubin 0.3, AST 9, and ALT less than 7. Albumin measurements are within normal limits and troponin is 0.011. Urinalysis shows microscopic bleeding and mild proteinuria. Chest x-ray shows hazy right-sided airspace disease with vascular prominence, suspicious for pneumonia. Followup x-rays recommended. ASSESSMENT: 1. Right lower lobe pneumonia. 2. Severe coronary artery disease with history of flash pulmonary edema. 3. Chronic anemia. 4. Hyperkalemia. 5. Fit-jsksvcf-jhsiqftjf diabetes. 6. Hypertension. PLAN: Blood cultures have been taken, so plan will be continue IV antibiotics, supportive care, Tylenol for fever, mucolytics, neb treatments and sirs re-evaluation with repeat PA and lateral chest x-rays. Job ID: [id number]
[2018-03-06] MEDS: Piperacillin/Tazobactam 3.375 GM in Sodium Chloride 0.9% 100 ML IVPB SCH ×4 (05:13→23:07)
[2018-03-06 06:04] LABS: #Lymphocytes 0.7 thou/uL (1.20-3.40); #Monocytes 0.5 thou/uL (0.11-0.59); #Neutrophils 7.4 thou/uL (1.40-6.50); %Eosinophils 0.3 % (0.0-10.0); %Lymphocytes 7.8 % (21.0-51.0); %Monocytes 6.1 % (0.0-10.0); %Neutrophils 85.7 % (42.0-75.0); Hemoglobin 7.5 g/dL (14.0-18.0); Mean Corpuscular HGB CONC 32.9 g/dL (32.0-36.0); Mean Corpuscular Hemoglobin 29.9 pg (27.0-31.0); Mean Corpuscular Volume 90.8 fL (78.0-98.0); Platelet Count 165 thou/uL (130-400); RBC Distribution Width 13.2 % (11.5-14.5); Red Blood Cell (RBC) Count 2.51 mill/uL (4.70-6.10); White Blood Cell (WBC) Count 8.6 thou/uL (4.8-10.8)
[2018-03-06 06:08] LABS: Anion Gap 12 mmol/L (10-20); BUN (Urea Nitrogen) 39 mg/dL (8.4-25.7); Calc. Creatinine Clearance 63 mL/min (70-130); Calcium 8.4 mg/dL (7.8-10.44); Carbon Dioxide 22 mmol/L (23-31); Chloride 113 mmol/L (98-107); Estimated GFR-MDRD 48; Glucose 123 mg/dL (80-115); Potassium 5.5 mmol/L (3.5-5.1); Sodium 141 mmol/L (136-145)
[2018-03-06] MEDS: Losartan 25 MG TAB PO SCH (08:11)
[2018-03-06] MEDS: metFORMIN 500 MG TAB PO SCH (08:12)
[2018-03-06] MEDS: Gabapentin 300 MG CAP PO SCH ×2 (08:12→20:41)
[2018-03-06] MEDS: Tamsulosin HCl 0.4 MG CAP PO SCH ×2 (08:12→20:41)
[2018-03-06] MEDS: Furosemide 40 MG TAB PO SCH (08:12)
[2018-03-06] MEDS: Carvedilol 25 MG TAB PO SCH ×2 (08:12→20:41)
[2018-03-06] MEDS: Docusate Calcium (SURFAK) 240 MG CAP PO SCH ×2 (10:03→20:40)
--- NOTE | 2018-03-06 11:58 | RAD ---
CHEST TWO VIEWS: History: Pneumonia. Follow up. Comparison: 03-05-18 FINDINGS: Lateral view contains dense infiltrate at the left posterior lung base. Pulmonary vasculature is engo rged, similar in appearance to the prior study. Patchy right perihilar infiltrate is stable. Mediasti num is midline with aortic calcification. No evidence of pneumothorax. IMPRESSION: 1. Left lower lobe pneumonia. 2. Pulmonary vascular congestion. POS: [facility]
--- NOTE | 2018-03-06 13:04 | EKG ---
Test Reason : Blood Pressure : / mmHG Vent. Rate : 090 BPM Atrial Rate : 090 BPM P-R Int : 166 ms QRS Dur : 082 ms QT Int : 332 ms P-R-T Axes : 030 -04 115 degrees QTc Int : 406 ms Normal sinus rhythm Anterior infarct , age undetermined Abnormal ECG Confirmed by KIA BERNARD ([id number]), desk editor VASILE ALICEA ([id number]) on 03/06/2018 1:04:05 PM Referred By: Confirmed By:KIA BERNARD
[2018-03-06] MEDS: Vancomycin HCl 1.75 GM in Sodium Chloride 0.9% 500 ML IVPB SCH (14:31)
[2018-03-06] MEDS: Acetaminophen 325 MG TAB PO PRN (18:27)
[2018-03-06] MEDS: Finasteride 5 MG TAB PO SCH (20:40)
[2018-03-07 04:55] LABS: #Eosinphils 0.1 thou/uL (0.0-0.7); #Lymphocytes 0.6 thou/uL (1.20-3.40); #Monocytes 0.4 thou/uL (0.11-0.59); #Neutrophils 6.9 thou/uL (1.40-6.50); %Basophils 0.1 % (0.0-1.0); %Eosinophils 1.2 % (0.0-10.0); %Lymphocytes 7.2 % (21.0-51.0); %Monocytes 4.9 % (0.0-10.0); %Neutrophils 86.6 % (42.0-75.0); Hemoglobin 7.6 g/dL (14.0-18.0); Mean Corpuscular HGB CONC 33.4 g/dL (32.0-36.0); Mean Corpuscular Volume 89.8 fL (78.0-98.0); Platelet Count 168 thou/uL (130-400); Red Blood Cell (RBC) Count 2.52 mill/uL (4.70-6.10); White Blood Cell (WBC) Count 7.9 thou/uL (4.8-10.8)
[2018-03-07] MEDS: Piperacillin/Tazobactam 3.375 GM in Sodium Chloride 0.9% 100 ML IVPB SCH ×2 (05:05→11:26)
[2018-03-07] MEDS: Acetaminophen 325 MG TAB PO PRN (05:05)
[2018-03-07 05:15] LABS: Anion Gap 12 mmol/L (10-20); BUN (Urea Nitrogen) 29 mg/dL (8.4-25.7); Calc. Creatinine Clearance 69 mL/min (70-130); Calcium 8.6 mg/dL (7.8-10.44); Carbon Dioxide 21 mmol/L (23-31); Chloride 112 mmol/L (98-107); Estimated GFR-MDRD 54; Glucose 118 mg/dL (80-115); Potassium 4.8 mmol/L (3.5-5.1); Sodium 140 mmol/L (136-145)
[2018-03-07] MEDS: Losartan 25 MG TAB PO SCH (08:16)
[2018-03-07] MEDS: Tamsulosin HCl 0.4 MG CAP PO SCH (08:17)
[2018-03-07] MEDS: Carvedilol 25 MG TAB PO SCH (08:17)
[2018-03-07] MEDS: Gabapentin 300 MG CAP PO SCH (08:17)
[2018-03-07] MEDS: Furosemide 40 MG TAB PO SCH (08:17)
[2018-03-07] MEDS: Docusate Calcium (SURFAK) 240 MG CAP PO SCH (08:17)
[2018-03-07] MEDS: metFORMIN 500 MG TAB PO SCH (08:17)
--- NOTE | 2018-03-07 12:00 | PQF ---
CLINICAL DOCUMENTATION IMPROVEMENT CLARIFICATION FORM: ICD-10 Updated PLEASE DO AN ADDENDUM TO THE PROGRESS NOTE WITH ANY DOCUMENTATION UPDATES OR ADDITIONS AND CARRY THROUGH TO DC SUMMARY. THANK YOU. DATE: 03/07/18 ATTN: Dr. Knapp Please exercise your independent, professional judgment in responding to the clarification form. Clinical indicators are provided on the bottom of this form for your review Please check appropriate box(s): [ ] Aspiration Pneumonia [ ] Empirically treating Gram Negative Pneumonia [ ] Empirically treating Anaerobic Pneumonia [ ] Pneumonia secondary to [ ] Simple Pneumonia (community acquired - nosocomial) [ ] Pneumonia of unknown etiology [ x ] Other diagnosis ____Pneumonia acquired in a healthcare enviroment [ ] Unable to determine In addition, please specify: Present on Admission (POA): [ x ] Yes [ ] No [ ] Unable to determine For continuity of documentation, please document condition throughout progress notes and discharge summary. Thank You. CLINICAL INDICATORS - SIGNS / SYMPTOMS / LABS H&P 03/05: Episode of illness began on the morning of admission where he awoke with SOB, cough, and fever to 101.4. He had vomited 2 times Chest x-ray shows hazy right-sided airspace disease with vascular prominence, suspicious for pneumonia. CHEST XRY 03/06: Comparison 03/05: Lateral view contains dense infiltrate at the left posterior lung base. Patchy right perihilar infiltrate is stable. PN 03/06-03/07: LLL pneumonia RISKS: H&P 03/05: 62 yr old care home pt with CAD, severe CHF, non-insulin- dependent diabetes. GERD. HTN. Previous CVA. Bilateral AKA amputations after stent failures. TREATMENT: ORDER 03/05: IV Zosyn 3.375 gm IV Q6 hr ORDER 03/05: IV Levaquin 500 mg IV ORDER 03/05: IV Vancomycin ORDER 03/06: Chest X-Ray Pa & Lat Thank you, Christina (This form is maintained as a part of the permanent medical record) 2014 [employer]. All Rights Reserved Christina Browning RN, BSN [email or web address] Office: [phone] [facility]
--- NOTE | 2018-03-07 12:30 | PQF ---
CLINICAL DOCUMENTATION IMPROVEMENT CLARIFICATION FORM: ICD-10 Updated PLEASE DO AN ADDENDUM TO THE PROGRESS NOTE WITH ANY DOCUMENTATION UPDATES OR ADDITIONS AND CARRY THROUGH TO DC SUMMARY. THANK YOU. DATE: 03/07/18 ATTN: Dr. Knapp Please exercise your independent, professional judgment in responding to the clarification form. Clinical indicators are provided on the bottom of this form for your review Please check appropriate box(s): [ x ] CKD without ARF/SANYA please specify Stage of CKD III____ [ ] Other diagnosis [ ] Unable to determine In addition, please specify: Present on Admission (POA): [ x ] Yes [ ] No [ ] Unable to determine For continuity of documentation, please document condition throughout progress notes and discharge summary. Thank You. CLINICAL INDICATORS - SIGNS / SYMPTOMS / LABS 03/05 03/06 03/07 LABS: CREATININE 1.40 1.47 1.34 ESTIMATED GFR 51 48 54 PN 03/06: RENAL INSUFFICIENCY - CHRONIC RISKS: H&P 03/05: 62 yr old fdc pt with CAD, severe CHF, non-insulin- dependent diabetes. HTN. Previous CVA. Pn 03/06: Renal insufficiency - chronic. TREATMENT: ORDER CMP 03/05 ORDER BMP 03/06, 03/07 National Kid[employer] Guidelines for CKD Staging Stage I Kidney damage with normal or increased GFR GFR > 90 Stage II Kidney damage with mildly decreased GFR GFR 60-89 Stage III Kidney damage with moderately decreased GFR GFR 30-59 Stage IV Kidney damage with severely decreased GFR GFR 16-29 Stage V Kidney failure GFR < 15 ESRD End Stage Renal Disease On dialysis Acute Renal Failure/Acute Kidney Failure defined as: Increases in SCr by (>) 0.3 mg/dl within 48 hours OR- Increases in SCr by (>) 1.5 times baseline, known or presumed to have occurred within the prior 7 days OR- Urine volume < 0.5 ml/kg/hour for 6 hours (KDIGO supplement 2012 for RIFLE/VERONICA criteria) Thank you, Christina (This form is maintained as a part of the permanent medical record) 2014 [employer]. All Rights Reserved Christina Browning, RN, BSN [email or web address] Office: [phone] [facility]
[2018-03-07 13:56] LABS: Vancomycin, Trough 25.3 ug/mL
[2018-03-07] MEDS ORDERED: Vancomycin HCl 1.25 GM in Sodium Chloride 0.9% 250 ML 250 ML IVPB SCH (14:00)
[2018-03-07] MEDS: Vancomycin HCl 1.75 GM in Sodium Chloride 0.9% 500 ML IVPB SCH (14:15)
[2018-03-07 16:44] VITALS: BP 160/74; TEMP 99.2
--- NOTE | 2018-03-10 11:02 | PQF ---
LICO ARELLANO, ALEJANDRINA Harrison MD [id number] CLINICAL DOCUMENTATION CLARIFICATION FORM: POST DISCHARGE Addendum to original discharge summary date: ____ Late entry note date: __ DATE: 03/10/18 ATTN: DR. PEDRO Please exercise your independent, professional judgment in responding to the clarification form. Clinical indicators are provided on the bottom of this form for your review Please check appropriate box(s): HEART FAILURE: A. TYPE: [ ] Systolic / HFrEF [ x ] Diastolic / HFpEF [ ] Combined Systolic / Diastolic B. ACUITY [ ] Acute [ ] Acute on Chronic [ x ] Chronic [ ] Other diagnosis [ ] Unable to determine In addition, please specify: Present on Admission (POA): [ x ] Yes [ ] No [ ] Unable to determine For continuity of documentation, please document condition throughout progress notes and discharge summary. Thank You. CLINICAL INDICATORS - SIGNS / SYMPTOMS / LABS: 03/05 H&P - Dyspnea, Hypoxia Severe Congestive heart failure 03/06 XR Chest - Pulmonary vascular congestion RISKS: CAD CKD Hypertension TREATMENTS: Lasix 40 mg (This form is maintained as a part of the permanent medical record) 2014 [employer]. All Rights Reserved Vi Nogueira, [email or web address] [email or web address] [phone] MTDD
== END 2018-03-07 16:45 | DRG 194 ==
LOC: ERS 07:25 → T4-B 11:10
PROVIDERS: ADMIT Specialist; ATTEND Specialist
DX: J18.1 Lobar pneumonia, unspecified organism (principal); I13.0 Hypertensive heart and chronic kidney disease with heart failure and stage 1 through stage 4 chronic kidney disease, or unspecified chronic kidney disease; I50.32 Chronic diastolic (congestive) heart failure; I25.10 Atherosclerotic heart disease of native coronary artery without angina pectoris; D64.9 Anemia, unspecified; E87.5 Hyperkalemia; K21.9 Gastro-esophageal reflux disease without esophagitis; Z86.73 Personal history of transient ischemic attack (TIA), and cerebral infarction without residual deficits; N40.0 Benign prostatic hyperplasia without lower urinary tract symptoms; E11.51 Type 2 diabetes mellitus with diabetic peripheral angiopathy without gangrene; E11.40 Type 2 diabetes mellitus with diabetic neuropathy, unspecified; Z87.891 Personal history of nicotine dependence; E11.22 Type 2 diabetes mellitus with diabetic chronic kidney disease; I25.2 Old myocardial infarction; Z89.612 Acquired absence of left leg above knee; Z89.611 Acquired absence of right leg above knee; N18.3 Chronic kidney disease, stage 3 (moderate); Y95 Nosocomial condition
CPT/HCPCS: 36415; 36416; 51701; 71045; 71046; 80048; 80053; 80202; 81003; 81015; 82274; 83605; 83880; 84443; 84484; 85025; 87040; 87804; 93005; 94640; 96365; 96367; 96375; J1956; J2405; J2543; J3370; J7050; J7620

== ENCOUNTER 2018-03-11 04:40 | Inpatient (IN) | payer MEDICARE ==
[2018-03-11 05:08] LABS: #Eosinphils 0.2 thou/uL (0.0-0.7); #Lymphocytes 0.6 thou/uL (1.20-3.40); #Monocytes 0.5 thou/uL (0.11-0.59); #Neutrophils 5.5 thou/uL (1.40-6.50); %Basophils 0.2 % (0.0-1.0); %Lymphocytes 9.3 % (21.0-51.0); %Monocytes 6.9 % (0.0-10.0); %Neutrophils 80.7 % (42.0-75.0); Hemoglobin 6.6 g/dL (14.0-18.0); Mean Corpuscular HGB CONC 33.2 g/dL (32.0-36.0); Mean Corpuscular Hemoglobin 29.4 pg (27.0-31.0); Mean Corpuscular Volume 88.6 fL (78.0-98.0); Mean Platelet Volume 7.1 fL (7.4-10.4); Platelet Count 256 thou/uL (130-400); RBC Distribution Width 12.9 % (11.5-14.5); Red Blood Cell (RBC) Count 2.23 mill/uL (4.70-6.10); White Blood Cell (WBC) Count 6.8 thou/uL (4.8-10.8)
[2018-03-11] MEDS ORDERED: Pantoprazole 80 MG, Admixture Fee 1 EACH in Sodium Chloride 0.9% 100 ML IVP SCH (05:15)
[2018-03-11 05:31] LABS: ALT (SGPT) Less than 7 U/L (8-55); AST (SGOT) 7 U/L (5-34); Alkaline Phosphatase 50 U/L (40-150); Anion Gap 15 mmol/L (10-20); BUN (Urea Nitrogen) 21 mg/dL (8.4-25.7); Bilirubin, Total 0.3 mg/dL (0.2-1.2); Calc. Creatinine Clearance 0 mL/min (70-130); Calcium 8.1 mg/dL (7.8-10.44); Carbon Dioxide 20 mmol/L (23-31); Chloride 112 mmol/L (98-107); Estimated GFR-MDRD 54; Globulin 2.6 g/dL (2.4-3.5); Glucose 126 mg/dL (80-115); Lipase 6 U/L (8-78); Potassium 3.6 mmol/L (3.5-5.1); Protein, Total 5.6 g/dL (5.8-8.1); Sodium 143 mmol/L (136-145)
[2018-03-11] MEDS ORDERED: Pantoprazole 40 MG VIAL ONE (05:57)
[2018-03-11] MEDS ORDERED: Iopamidol-370 76% 500 ML 1 ML ONE (09:00)
[2018-03-11] MEDS ORDERED: Furosemide 40 MG/4 ML VIAL ONE (09:06)
[2018-03-11] MEDS ORDERED: Levofloxacin 500 mg/D5W 100 ml Premix Bag ONE (09:06)
[2018-03-11] MEDS ORDERED: cloNIDine 0.2mg/24 Hour PATCH TD SCH (10:00)
--- NOTE | 2018-03-11 11:35 | CT ---
PRELIMINARY REPORT/[facility]/EMERGENTY AFTER-HOURS PROCEDURE CT Abdomen and Pelvis With Contrast EXAM DATE/TIME: 03/11/2018 5:29 AM CLINICAL HISTORY: 62 years old, male; Signs and symptoms; Other: Bloody stool; Patient HX: 62 yo m from [facility] presents to ed via ems with rectal bleeding. Ems states [facility] staff at [facility] repor jeannine they saw blood in the toilet after PT had a bowel movement. PT confirms ems reports, PT reports a ssociated abd pain. PT denies HX of similar issues. TECHNIQUE: Axial computed tomography images of the abdomen and pelvis with intravenous contrast. Coronal reformatted images were created and reviewed. COMPARISON: No relevant prior studies available. FINDINGS: Lower thorax: There are small bilateral pleural effusions with compressive atelectasis at the lung ba ses. ABDOMEN: Liver: The liver is within normal limits for this noncontrast study. Gallbladder and bile ducts: The gallbladder is normal. There is no evidence of biliary ductal dilatio n. Pancreas: The pancreas appears normal. No ductal dilatation. Spleen: The spleen is normal. Adrenals: The adrenal glands are normal. Kidneys and ureters: The kidneys appear normal. No hydronephrosis. There is a simple cyst in the righ t kidney. Stomach and bowel: The stomach is normal. The duodenum is unremarkable. Nonspecific fluid is noted in the colon. Appendix: A normal appendix is identified. PELVIS: Bladder: The bladder is decompressed by a Smith catheter but is otherwise normal. There is a small am ount of intraluminal air consistent with instrumentation. Reproductive: Unremarkable as visualized. ABDOMEN and PELVIS: Intraperitoneal space: Normal. No free air. No significant fluid collection. Bones/joints: There are healed left rib fractures. Soft tissues: Unremarkable. Vasculature: Normal. No abdominal aortic aneurysm. Lymph nodes: Normal. No enlarged lymph nodes. IMPRESSION: There are small bilateral pleural effusions with compressive atelectasis at the lung bases. No acute abdominal pelvic pathology. Thank you for allowing us to participate in the care of your patient. Dictated and Authenticated by: Kingston De La Vega MD 03/11/2018 6:33 AM Central Time ([place] & [place]) FINAL REPORT CT ABDOMEN AND PELVIS WITH IV CONTRAST: I agree with the preliminary report given by Dr. De La Vega of [facility]. POS: [facility]
[2018-03-11] MEDS: 1/2 NS w/KCL 20 mEq 1,000 ML IV SCH ×2 (12:49→19:16)
[2018-03-11] MEDS: Vancomycin HCl 1 GM in Premix Bag 1 BAG IVPB SCH ×2 (12:50→23:11)
[2018-03-11] MEDS: Piperacillin/Tazobactam 3.375 GM in Sodium Chloride 0.9% 100 ML IVPB SCH ×3 (12:53→22:08)
--- NOTE | 2018-03-11 13:53 | HP ---
CHIEF COMPLAINT ON ADMISSION: Acute GI bleed. HISTORY OF PRESENT ILLNESS: The patient is a 62-year-old senior living patient recently hospitalized less than a week ago for pneumonia, senior living acquired. He was since discharged home last week on IV vancomycin, Zosyn, and Levaquin and was in his usual state of health until on the morning of admission. His nurse noted that he had filled the bed with black maroonish tarry Hemoccult positive stool. She sent him to the ER for further evaluation. In the emergency room, it was confirmed to be Hemoccult positive and his hemoglobin had dropped to 6.6, his hematocrit was 19.7 at which time he was type and crossed and transfusion began. Dr. Knapp was contacted for further orders and admission. PAST MEDICAL HISTORY: As mentioned above. Most recent hospitalization less than a week ago for healthcare-acquired pneumonia. The patient has history of acute pulmonary edema, severe coronary artery disease, [id number] diabetes, myocardial infarction, congestive heart failure, iron deficiency anemia, severe BPH with history of obstruction, GERD, hyperlipidemia, hypertension, previous CVA, severe peripheral vascular disease resulting in two amputations, diabetic neuropathy. PAST SURGICAL HISTORY: Includes cardiovascular stents and peripheral vascular stents, bilateral AKA amputations, heart catheterization in 2008, and recently hospitalized in last year with flash pulmonary edema, at which time he went on hospice for short time. He is now off hospice care. PSYCHIATRIC HISTORY: Positive for anxiety and depression. SOCIAL HISTORY: Lives in the senior living. No longer smoking or drinking. He never used illicit drugs. ALLERGIES: HE HAS NO KNOWN DRUG ALLERGIES. MEDICATIONS: On admission include: 1. Metformin 500 mg once a day. 2. Tamsulosin 0.4 mg b.i.d. 3. Finasteride 5 mg daily. 4. Aspirin 81 mg daily. 5. Hydralazine 50 mg t.i.d. 6. Lasix 40 mg q.a.m. 7. Losartan 100 mg daily. 8. Stool softeners. 9. Zantac 150 mg b.i.d. 10. Tylenol p.r.n. pain. 11. DuoNeb p.r.n. dyspnea. 12. Levaquin 500 mg p.o. daily. 13. Zosyn 3.375 IV q.6. 14. Vancomycin 1 g q.12. 15. Pantoprazole 40 mg daily. REVIEW OF SYSTEMS: CONSTITUTIONAL: Denies any fever, chills, diaphoresis, or particular weakness. HEENT: No drainage from eyes, ears, nose, or throat. No complaints of sore throat. CHEST: Denies any cough, shortness of breath. CARDIOVASCULAR: Denies chest pain or palpitations. GI: Has had abdominal bloating and discomfort. No specific areas of pain. : Denies urinary pain or frequency, but has had grossly bloody stools. SKIN: No new rashes or lesions. NEUROLOGIC: No complaints of headache, hypesthesia, dysesthesia. ENDOCRINE: No areas of swelling, edema, or ecchymosis. PSYCHIATRIC: No new areas of anxiety or depression. PHYSICAL EXAMINATION: VITAL SIGNS: Blood pressure 175/74, pulse 83, respirations 24, O2 saturation 97% on room air. Pain is 0. Temperature 99.3. GENERAL: This is alert, responsive male, in no acute distress. HEENT: Normocephalic, atraumatic. Pupils are equal, round, and reactive to light. Extraocular muscles are intact. TMs, nares, and pharynx are clear. NECK: Supple. Trachea midline. No mass or swelling. CHEST: Clear to auscultation. HEART: Regular rate and rhythm. No murmur. ABDOMEN: Distended. Generally tender. No areas of specific pain. : Deferred. EXTREMITIES: Lower extremities amputated. Upper extremities without clubbing, cyanosis, or edema. Normal range of motion present. SKIN: No acute rashes or lesions. NEUROLOGIC: Cranial nerves are intact. Unable to test gait and cerebral functions. Sensory exam grossly intact. Mental status at baseline. LABORATORY DATA: Lab thus far shows sodium 143, potassium 3.6, chloride 112, CO2 of 20, BUN 21, creatinine 1.33, glucose 126. Liver functions unremarkable. Lipase 6. WBC 6.8, hemoglobin 6.6, hematocrit 19.7 with platelets of 256. CT of the abdomen report still pending. ASSESSMENT: 1. Acute gastrointestinal bleed. 2. Recent history of healthcare-acquired pneumonia. 3. History of severe coronary artery disease with flash pulmonary edema. 4. Non-insulin dependent diabetes. 5. Hypertension, poorly controlled at this time despite multiple medications. PLAN: Plan will be [facility] admission. Serial hemoglobin and hematocrit to monitor blood loss. He is currently getting packed red blood cells at this time. GI consultations begun. Protonix drip is in place and we will use IV labetalol q.3 as well as topical Catapres patch to help control blood pressure. Job ID: [id number]
[2018-03-11] MEDS ORDERED: Activase 2 MG VIAL CATH SCH (15:21)
[2018-03-11] MEDS ORDERED: Sterile Water 10 ML VIAL IVP SCH (15:21)
--- NOTE | 2018-03-11 15:25 | RAD ---
FRONTAL RADIOGRAPH CHEST: Date: 03-11-18 Comparison: 03-06-18 History: Pneumonia. FINDINGS: There is hazy bilateral perihilar and bilateral basilar airspace disease. Blunting of costophrenic an gles suggests small bilateral pleural effusions. There is a right sided PICC, distal tip overlying th e region of the cavoatrial junction. IMPRESSION: Perihilar and bibasilar airspace disease with small bilateral pleural effusions. Question infectious pneumonitis/aspiration and/or pulmonary edema. Follow up to resolution advised. POS: [facility]
[2018-03-11 15:56] LABS: Hemoglobin 8.3 g/dL (14.0-18.0)
[2018-03-11] MEDS: Labetalol HCl 100 MG/20 ML VIAL SLOW IVP PRN (16:53)
[2018-03-11] MEDS: hydrALAZINE 20 MG/ML VIAL SLOW IVP PRN (18:38)
[2018-03-12] MEDS: 1/2 NS w/KCL 20 mEq 1,000 ML IV SCH ×2 (01:10→11:05)
[2018-03-12] MEDS: Pantoprazole 80 MG, Admixture Fee 1 EACH in Sodium Chloride 0.9% 100 ML IVP SCH ×3 (01:10→23:07)
[2018-03-12] MEDS: hydrALAZINE 20 MG/ML VIAL SLOW IVP PRN (04:15)
[2018-03-12] MEDS: Piperacillin/Tazobactam 3.375 GM in Sodium Chloride 0.9% 100 ML IVPB SCH ×2 (04:18→10:12)
[2018-03-12 04:29] LABS: #Eosinphils 0.3 thou/uL (0.0-0.7); #Lymphocytes 0.5 thou/uL (1.20-3.40); #Monocytes 0.5 thou/uL (0.11-0.59); #Neutrophils 6.9 thou/uL (1.40-6.50); %Basophils 0.1 % (0.0-1.0); %Eosinophils 3.9 % (0.0-10.0); %Monocytes 5.7 % (0.0-10.0); %Neutrophils 84.3 % (42.0-75.0); Hemoglobin 7.5 g/dL (14.0-18.0); Mean Corpuscular HGB CONC 33.1 g/dL (32.0-36.0); Mean Corpuscular Hemoglobin 29.2 pg (27.0-31.0); Mean Corpuscular Volume 88.2 fL (78.0-98.0); Mean Platelet Volume 7.1 fL (7.4-10.4); Platelet Count 241 thou/uL (130-400); Red Blood Cell (RBC) Count 2.55 mill/uL (4.70-6.10); White Blood Cell (WBC) Count 8.2 thou/uL (4.8-10.8)
[2018-03-12 04:49] LABS: Anion Gap 15 mmol/L (10-20); BUN (Urea Nitrogen) 18 mg/dL (8.4-25.7); Calc. Creatinine Clearance 69 mL/min (70-130); Calcium 7.9 mg/dL (7.8-10.44); Carbon Dioxide 19 mmol/L (23-31); Chloride 111 mmol/L (98-107); Estimated GFR-MDRD 53; Glucose 110 mg/dL (80-115); Potassium 3.7 mmol/L (3.5-5.1); Sodium 141 mmol/L (136-145)
[2018-03-12] MEDS ORDERED: Furosemide 40 MG/4 ML VIAL SLOW IVP SCH (09:00)
[2018-03-12] MEDS: Vancomycin HCl 1 GM in Premix Bag 1 BAG IVPB SCH (11:05)
[2018-03-12 15:35] LABS: Hemoglobin 8.1 g/dL (14.0-18.0)
--- NOTE | 2018-03-12 15:42 | CON ---
DATE OF CONSULTATION: 03/12/2018 SERVICE: Pulmonary Medicine. REASON FOR CONSULTATION: ICU patient. HISTORY OF PRESENT ILLNESS: The patient is a 62-year-old male with past medical history significant for end-stage renal disease. He lives in a nursing facility. Last week, he was admitted for pneumonia and was discharged on vancomycin, Zosyn, and Levaquin. This week, he started having maroon stools. These were Hemoccult positive. He was sent back to the emergency department for additional evaluation. His hemoglobin was 6.6, which was down from a baseline of over 10. He was tucked in the IMCU. He currently denies any chest pain, fevers , chills, nausea, vomiting, or shortness of breath. He is no longer coughing. PAST MEDICAL HISTORY: 1. Coronary artery disease. 2. Type 2 diabetes mellitus. 3. Congestive heart failure. 4. BPH. 5. Anemia. 6. Gastroesophageal reflux disease. 7. Dyslipidemia. 8. Hypertension. 9. History of CVA. 10. Peripheral vascular disease, severe. 11. Neuropathy. PAST SURGICAL HISTORY: 1. Above-knee amputation, bilateral. 2. Percutaneous coronary interventions. SOCIAL HISTORY: Negative for alcohol, tobacco, or current drug use. He has had remote history of smoking. He denies exposure to chemicals, dust, asbestos, or tuberculosis. FAMILY HISTORY: Noncontributory. ALLERGIES: NO KNOWN DRUG ALLERGIES. MEDICATIONS: List of the patient's inpatient medications was reviewed. No specific updates were made at this time. REVIEW OF SYSTEMS: General, head, ears, eyes, nose, throat, cardiovascular, respiratory, GI, , musculoskeletal, neurologic, and skin are negative except as mentioned in the HPI. PHYSICAL EXAMINATION: VITAL SIGNS: Afebrile, pulse 86, blood pressure 187/75, respirations 16, and saturation 99% on 2 L nasal cannula. GENERAL: The patient is awake and alert, in no apparent distress. LUNGS: Excellent air entry. Dependent crackles are present. There is no prolonged expiratory phase or wheezing appreciated. HEART: Normal rate and regular. ABDOMEN: Soft, nontender, and nondistended. Bowel sounds are positive. MUSCULOSKELETAL: No cyanosis or clubbing. There is no pitting in the bilateral lower extremities. NEUROLOGIC: Grossly nonfocal. LABORATORY DATA: WBC 8.2, hemoglobin 7.5, platelets 241,000. Creatinine 1.35, which is at his baseline. Basic metabolic profile is otherwise unremarkable. Liver function studies are unremarkable. Urinalysis was previously negative. Prior microbiology including blood culture x2, influenza A and B were negative. Stool occult blood is positive. IMAGING STUDIES: CT of the abdomen and pelvis demonstrates absolutely no acute pathology. The lung views did not demonstrate any infiltrate. There are bilateral pleural effusions with simple layering/atelectasis in the bibasilar regions. ASSESSMENT: 1. Acute hypoxic respiratory failure. 2. Recent healthcare-associated pneumonia, status post full course of IV antibiotics. 3. Acute blood loss anemia. 4. Gastrointestinal bleed, suspected. DISCUSSION AND PLAN: We will trend our hemoglobins. The patient has completed a 7-day course of antibiotics and we can interrupt these altogether. If his hemoglobin remains stable or he had a low-risk bleed identified, he can be transitioned out of the ICU. Pulmonary/Critical Care will continue to follow so long as he remains in this location. Agree with PPI twice daily. Lasix and IV fluids will both be interrupted for the time being. We will continue to hold blood pressure medications. 70 minutes have been devoted to this patient in various activities. I personally reviewed all imaging studies and laboratory data noted within this document. For fifty percent of this time, I was interacting with the patient at the bedside or coordinating care with the care team. For the remainder of the time I was immediately available to the patient in the hospital unit. Job ID: [id number] [facility]
[2018-03-12] MEDS: Labetalol HCl 100 MG/20 ML VIAL SLOW IVP PRN ×2 (19:39→23:17)
[2018-03-12] MEDS ORDERED: GoLYTELY 4,000 ml Bottle PO SCH (21:30)
[2018-03-12] MEDS ORDERED: PROPOFOL 200 MG/20 ML VIAL ONE (22:05)
[2018-03-12] MEDS ORDERED: Lidocaine 1% PF 5 ML VIAL ONE (22:05)
[2018-03-12] MEDS: Gabapentin 300 MG CAP PO SCH (22:35)
[2018-03-13] MEDS: hydrALAZINE 20 MG/ML VIAL SLOW IVP PRN ×2 (01:34→04:54)
--- NOTE | 2018-03-13 01:51 | CON ---
DATE OF CONSULTATION: 03/12/2018 HISTORY OF PRESENT ILLNESS: The patient is a 62-year-old intermediate patient, who reported large amount of black tarry stool. His hemoglobin had dropped to 6.6, hematocrit 19.7. He is a somewhat poor historian. However, he denies any abdominal pain, any vomiting, or any recent weight loss. PAST MEDICAL HISTORY: Significant for pneumonia, pulmonary edema, coronary artery disease, diabetes mellitus, congestive heart failure, BPH, gastroesophageal reflux disease, hyperlipidemia, hypertension, peripheral vascular disease, status post bilateral lower extremity amputations. PAST SURGICAL HISTORY: Includes bilateral lower extremity amputations. SOCIAL HISTORY: Lives in a intermediate. ALLERGIES: NO KNOWN ALLERGIES. MEDICATIONS: Include, 1. Metformin 500 mg p.o. q.a.m. 2. Hydralazine 50 mg p.o. t.i.d. 3. Zantac 150 mg p.o. b.i.d. 4. Vancomycin IV daily. 5. Flomax 0.4 mg p.o. b.i.d. 6. Zoloft 100 mg p.o. daily. 7. Zosyn IV q.6 hours. 8. Protonix 40 mg p.o. daily. 9. Cozaar 100 mg p.o. daily. 10. Levaquin 500 mg p.o. daily. 11. DuoNeb q.i.d. 12. Neurontin 300 mg p.o. b.i.d. 13. Lasix 40 mg p.o. daily. 14. Proscar 5 mg p.o. daily. 15. Coreg 25 mg p.o. b.i.d. 16. Aspirin 81 mg p.o. daily. REVIEW OF SYSTEMS: Unobtainable. PHYSICAL EXAMINATION: GENERAL: Shows an overweight male, in no acute distress. VITAL SIGNS: Temperature is 99.1, pulse 80, respiratory rate 32, blood pressure 188/84. HEENT: Unremarkable. NECK: Supple. CHEST: Clear. CARDIOVASCULAR: Regular rate and rhythm. ABDOMEN: Soft, nontender without organomegaly or masses. Bowel sounds are present, normoactive. RECTAL: Deferred. EXTREMITIES: Shows previous amputations. LABORATORY DATA: Shows admission hemoglobin 6.6 and after 1 unit, his hemoglobin is 8.1. Admission CO2 of 20, creatinine 1.33, glucose 126, albumin 3. Abdominal and pelvic CT shows bilateral pleural effusions and atelectasis, but no other abnormalities. ASSESSMENT: 1. Gastrointestinal bleed. 2. Anemia secondary to gastrointestinal bleed, but probably also component of anemia of chronic disease. 3. Diabetes mellitus. 4. Peripheral vascular disease. 5. Coronary artery disease. RECOMMENDATIONS: 1. IV Protonix. 2. EGD. 3. Serial H and H. Job ID: [id number]
[2018-03-13] MEDS: Labetalol HCl 100 MG/20 ML VIAL SLOW IVP PRN ×2 (03:02→10:45)
[2018-03-13 03:20] LABS: #Eosinphils 0.1 thou/uL (0.0-0.7); #Lymphocytes 0.5 thou/uL (1.20-3.40); #Monocytes 0.4 thou/uL (0.11-0.59); #Neutrophils 7.7 thou/uL (1.40-6.50); %Basophils 0.2 % (0.0-1.0); %Eosinophils 1.6 % (0.0-10.0); %Lymphocytes 5.5 % (21.0-51.0); %Neutrophils 87.7 % (42.0-75.0); Hemoglobin 7.7 g/dL (14.0-18.0); Mean Corpuscular HGB CONC 33.6 g/dL (32.0-36.0); Mean Corpuscular Volume 89.3 fL (78.0-98.0); Mean Platelet Volume 6.7 fL (7.4-10.4); Platelet Count 232 thou/uL (130-400); RBC Distribution Width 13.2 % (11.5-14.5); Red Blood Cell (RBC) Count 2.57 mill/uL (4.70-6.10); White Blood Cell (WBC) Count 8.7 thou/uL (4.8-10.8)
[2018-03-13 03:43] LABS: Anion Gap 23 mmol/L (10-20); BUN (Urea Nitrogen) 18 mg/dL (8.4-25.7); Calc. Creatinine Clearance 65 mL/min (70-130); Calcium 8.2 mg/dL (7.8-10.44); Carbon Dioxide 15 mmol/L (23-31); Chloride 113 mmol/L (98-107); Estimated GFR-MDRD 50; Glucose 148 mg/dL (80-115); Potassium 3.6 mmol/L (3.5-5.1); Sodium 147 mmol/L (136-145)
--- NOTE | 2018-03-13 10:28 | OP ---
DATE OF PROCEDURE: 03/12/2018 PREOPERATIVE DIAGNOSIS: Gastrointestinal bleed. DESCRIPTION OF PROCEDURE: After informed consent was obtained, the patient was placed in a left lateral decubitus position. Anesthesia was administered per the Anesthesia Department. Forward-viewing endoscope was inserted into the esophagus under direct visualization with ease and passed to the second portion of the duodenum with ease. Second portion of the duodenum and duodenal bulb were normal. Pylorus, antrum, body, fundus, and cardia were normal. Retroflexion in stomach was normal. Esophagus was normal throughout. No blood was seen in the upper GI tract. ASSESSMENT: Normal EGD. RECOMMENDATIONS: Proceed with colonoscopy tomorrow. Job ID: [id number]
[2018-03-13] MEDS: Pantoprazole 80 MG, Admixture Fee 1 EACH in Sodium Chloride 0.9% 100 ML IVP SCH ×2 (10:46→23:20)
[2018-03-13] MEDS ORDERED: Furosemide 40 MG/4 ML VIAL SLOW IVP SCH (13:15)
[2018-03-13] MEDS ORDERED: Losartan 25 MG TAB PO SCH (13:15)
--- NOTE | 2018-03-13 14:06 | PRG ---
DATE OF SERVICE: 03/13/2018 SERVICE: Pulmonary Medicine. INTERVAL HISTORY: The patient is doing fine from respiratory standpoint. Blood pressures remain quite elevated. Otherwise, there has been no interval change to his condition. His hemoglobins have not been dropping significantly overnight. He denies any lightheadedness, dizziness, fevers, chills, cough, or sputum production. He has a good appetite. PHYSICAL EXAMINATION: VITAL SIGNS: Afebrile. Pulse 84, blood pressure 191/84, respirations 20, and saturation 100% on 2 L nasal cannula. GENERAL: The patient is awake and alert, in no apparent distress. LUNGS: Decent air entry. Dependent crackles are present. No prolonged expiratory phase or wheezing is appreciated. HEART: Normal rate and regular. ABDOMEN: Soft, nontender, and nondistended. Bowel sounds are positive. MUSCULOSKELETAL: No cyanosis or clubbing. There is trace pitting in the lower stumps. : No Smith. NEUROLOGIC: Grossly nonfocal. LABORATORY DATA: Sodium 147, chloride 113, potassium 3.6, creatinine up- trending to 1.42, anion gap 23. Bicarb 15. Basic metabolic profile is otherwise unremarkable. Hemoglobin is stable at 7.7. ASSESSMENT: 1. Acute hypoxic respiratory failure. 2. Acute blood loss anemia. 3. Gastrointestinal bleed, suspected. 4. Recent healthcare-associated pneumonia, status post full course of antibiotics. 5. Hypertension. DISCUSSION AND PLAN: I will give the patient a dose of Lasix today, as he is getting a little volume overloaded. We will restart some of his home blood pressure medications. At this point, he is stable for transition to the medical unit. Pulmonary/Critical Care will continue to follow along for now. Hopefully, some of his electrolyte derangements will improve going until tomorrow. Job ID: [id number] MTDD
[2018-03-13] MEDS ORDERED: PROPOFOL 200 MG/20 ML VIAL ONE (16:46)
[2018-03-13] MEDS: Gabapentin 300 MG CAP PO SCH ×2 (17:37→23:39)
[2018-03-13] MEDS: hydrALAZINE 25 MG TAB PO SCH ×2 (17:40→23:39)
[2018-03-13] MEDS ORDERED: Ondansetron HCl/PF 4 MG/2 ML Vial IVP PRN (20:05)
[2018-03-13] MEDS ORDERED: Promethazine HCl 25 MG/ML VIAL IM PRN (20:05)
[2018-03-13] MEDS ORDERED: Promethazine HCl 25 MG/ML VIAL SLOW IVP PRN (20:05)
--- NOTE | 2018-03-14 02:55 | OP ---
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 PROCEDURE: Colonoscopy, diagnostic. INDICATIONS: 1. Melena. 2. Anemia. 3. EGD yesterday was negative. MEDICATIONS: See Anesthesia record. FINDINGS: After discussion of the risks, benefits, and alternatives of the procedure, informed consent was obtained and witnessed. Pre-endoscopic cardiopulmonary examination was satisfactory. Time-out was performed before sedation was achieved. Sedation was achieved with Anesthesia assistance in the endoscopy unit. A Pentax adult colonoscope was prepared. Digital rectal exam was performed which was unremarkable. The colonoscope was inserted into the anus and passed forward to the cecum in the usual fashion. The cecal base was identified by the appendiceal orifice as well as the ileocecal valve. The terminal ileum was intubated and the ileal mucosa appeared normal. The colonoscope was then slowly withdrawn in a gradual to comfortable manner with careful examination of the entire colonic mucosa. The quality of the prep was adequate. There was no evidence of any old blood or active bleeding throughout the colon. The colonic mucosa appeared completely normal throughout. There were no polyps or mass lesions. No bleeding lesions identified. Retroflexion in the rectum was unremarkable. The colonoscope was completely withdrawn and the patient allowed to recover. The patient tolerated the procedure well. There were no immediate postprocedure complications. IMPRESSION: 1. Normal colonoscopy to the terminal ileum. 2. No old blood or active bleeding or any bleeding lesions visualized. RECOMMENDATIONS: 1. Advance diet. 2. Follow H and H. 3. Please call back if needed. Job ID: [id number]
[2018-03-14] MEDS: Labetalol HCl 100 MG/20 ML VIAL SLOW IVP PRN (03:47)
[2018-03-14] MEDS ORDERED: Carvedilol 25 MG TAB PO SCH (08:00)
[2018-03-14] MEDS: hydrALAZINE 25 MG TAB PO SCH ×2 (08:51→15:14)
[2018-03-14] MEDS: Gabapentin 300 MG CAP PO SCH (08:52)
[2018-03-14] MEDS ORDERED: Losartan 25 MG TAB PO SCH (09:00)
[2018-03-14] MEDS ORDERED: Furosemide 40 MG/4 ML VIAL SLOW IVP SCH (09:00)
[2018-03-14 12:11] VITALS: BP 191/79; TEMP 98.9
--- NOTE | 2018-03-17 11:07 | PQF ---
LICO ARELLANO MICHAEL E MD [id number] CLINICAL DOCUMENTATION IMPROVEMENT CLARIFICATION FORM: ICD-10 Updated PLEASE DO AN ADDENDUM TO THE PROGRESS NOTE WITH ANY DOCUMENTATION UPDATES OR ADDITIONS AND CARRY THROUGH TO DC SUMMARY. THANK YOU. DATE: 03-17-18 ATTN: DR. PEDRO Please exercise your independent, professional judgment in responding to the clarification form. Clinical indicators are provided on the bottom of this form for your review Please check appropriate box(s): HEART FAILURE: A. TYPE: [ ] Systolic / HFrEF [ ] Diastolic / HFpEF [ x ] Combined Systolic / Diastolic B. ACUITY [ ] Acute [ ] Acute on Chronic [ x ] Chronic [ ] Other diagnosis [ ] Unable to determine In addition, please specify: Present on Admission (POA): [ x ] Yes [ ] No [ ] Unable to determine For continuity of documentation, please document condition throughout progress notes and discharge summary. Thank You. CLINICAL INDICATORS - SIGNS / SYMPTOMS / LABS H&P: RR 24 - O2 SAT 97@ ON RA; LE AMPUTATED - NO EDEMA IN UPPER EXTREMITIES 03-12 ([facility]): CHF - last echo 03-18 good EF 50-55% RISKS: 03-11 H&P ([facility]): HX OF HTN; SEVERE CAD; RI; AND CHF TREATMENTS: MAR: 03-12 / 03-13 / 03-14 LASIX IVP 03-11 IMCU - CARDIAC MONITORING THANK YOU, REANNA (This form is maintained as a part of the permanent medical record) 2014 [employer]. All Rights Reserved Reanna Lopes RN, BS [email or web address] Cell [facility]
== END 2018-03-14 15:54 | DRG 377 ==
LOC: ERS 04:40 → ERHOLD 06:07 → IMCU/EMU 12:48 → ONC 03-13 21:07
PROVIDERS: ADMIT Specialist; ATTEND Specialist
PROC: 30233N1 Transfusion of Nonautologous Red Blood Cells into Peripheral Vein, Percutaneous Approach (ICD-10-PCS; principal; 2018-03-11)
PROC: 0DJ08ZZ Inspection of Upper Intestinal Tract, Via Natural or Artificial Opening Endoscopic (ICD-10-PCS; 2018-03-12)
PROC: 0DJD8ZZ Inspection of Lower Intestinal Tract, Via Natural or Artificial Opening Endoscopic (ICD-10-PCS; 2018-03-13)
DX: K92.2 Gastrointestinal hemorrhage, unspecified (principal); J96.01 Acute respiratory failure with hypoxia; D62 Acute posthemorrhagic anemia; I50.42 Chronic combined systolic (congestive) and diastolic (congestive) heart failure; Z86.73 Personal history of transient ischemic attack (TIA), and cerebral infarction without residual deficits; Z87.01 Personal history of pneumonia (recurrent); I25.2 Old myocardial infarction; Z95.5 Presence of coronary angioplasty implant and graft; Z95.820 Peripheral vascular angioplasty status with implants and grafts; Z89.612 Acquired absence of left leg above knee; Z89.611 Acquired absence of right leg above knee; I25.10 Atherosclerotic heart disease of native coronary artery without angina pectoris; I11.0 Hypertensive heart disease with heart failure; Z95.1 Presence of aortocoronary bypass graft; D50.9 Iron deficiency anemia, unspecified; N40.0 Benign prostatic hyperplasia without lower urinary tract symptoms; K21.9 Gastro-esophageal reflux disease without esophagitis; E78.5 Hyperlipidemia, unspecified; E11.40 Type 2 diabetes mellitus with diabetic neuropathy, unspecified; Z79.84 Long term (current) use of oral hypoglycemic drugs; Z79.01 Long term (current) use of anticoagulants; Z79.82 Long term (current) use of aspirin; D63.8 Anemia in other chronic diseases classified elsewhere; Z79.51 Long term (current) use of inhaled steroids; F41.8 Other specified anxiety disorders
CPT/HCPCS: 36415; 36416; 36430; 71045; 74177; 80048; 80053; 82274; 83690; 85025; 86850; 86900; 86901; 94640; 94760; 96365; 96366; 96376; C9113; J0360; J1940; J1956; J2001; J2543; J2704; J2997; J3370; J7050; J7620; P9016; Q9967

== ENCOUNTER 2018-04-02 20:34 | Emergency (ER) | payer MEDICARE ==
[2018-04-02 21:36] LABS: #Eosinphils 0.2 thou/uL (0.0-0.7); #Lymphocytes 0.8 thou/uL (1.20-3.40); #Monocytes 0.3 thou/uL (0.11-0.59); #Neutrophils 4.2 thou/uL (1.40-6.50); %Basophils 0.4 % (0.0-1.0); %Eosinophils 3.6 % (0.0-10.0); %Lymphocytes 13.8 % (21.0-51.0); %Monocytes 5.1 % (0.0-10.0); %Neutrophils 77.2 % (42.0-75.0); Hemoglobin 7.4 g/dL (14.0-18.0); Mean Corpuscular HGB CONC 33.5 g/dL (32.0-36.0); Mean Corpuscular Hemoglobin 29.8 pg (27.0-31.0); Platelet Count 195 thou/uL (130-400); RBC Distribution Width 13.6 % (11.5-14.5); Red Blood Cell (RBC) Count 2.49 mill/uL (4.70-6.10); White Blood Cell (WBC) Count 5.5 thou/uL (4.8-10.8)
[2018-04-02 21:41] LABS: INR-International Normal Ratio 1.2; Prothrombin Time 14.8 SEC (12.0-14.7)
[2018-04-02 21:42] LABS: PTT 38.2 SEC (22.9-36.1)
[2018-04-02 21:55] LABS: Bilirubin Negative (Negative); Blood, Urine Negative (Negative); Clarity CLOUDY (Clear); Glucose, Urine (Dipstick) Negative (Negative); Leukocyte Moderate (Negative); Nitrite Positive (Negative); Protein, Urine (Dipstick) 100 mg/dL (Neg-Trace); pH, Urine 7.5 (5.0-9.0)
[2018-04-02 21:57] LABS: Bacteria/HPF 2+ HPF (None Seen); Hyaline Casts/LPF 7-10 HYALINE CAST LPF (0-3 Hyaline); Pathc Cast-AUWi Flag 0.72 (0-2.49); Squamous Epithelial None Seen HPF (0-3)
[2018-04-02 22:13] LABS: ALT (SGPT) 7 U/L (8-55); AST (SGOT) 17 U/L (5-34); Albumin 3.1 g/dL (3.4-4.8); Alkaline Phosphatase 77 U/L (40-150); Anion Gap 15 mmol/L (10-20); BUN (Urea Nitrogen) 26 mg/dL (8.4-25.7); Bilirubin, Total 0.3 mg/dL (0.2-1.2); CK (CPK) 48 U/L (30-200); Calc. Creatinine Clearance 0 mL/min (70-130); Calcium 7.6 mg/dL (7.8-10.44); Carbon Dioxide 22 mmol/L (23-31); Chloride 104 mmol/L (98-107); Estimated GFR-MDRD 47; Globulin 3.4 g/dL (2.4-3.5); Glucose 164 mg/dL (80-115); Lipase 9 U/L (8-78); Potassium 5.8 mmol/L (3.5-5.1); Protein, Total 6.5 g/dL (5.8-8.1); Sodium 135 mmol/L (136-145)
--- NOTE | 2018-04-02 22:15 | RAD ---
PORTABLE CHEST 04/02/18 PROVIDED CLINICAL HISTORY: Anemia. Altered mental status. FINDINGS: Comparison 03/11/18. The cardiac silhouette remains enlarged. Vascular calcifications involves the aortic arch. No focal c onsolidation, pleural fluid, or pneumothorax apparent. IMPRESSION: Cardiomegaly without evidence for an acute cardiopulmonary process. POS: [facility]
[2018-04-02] MEDS ORDERED: cefTRIAXone\\ROCEPHIN 1 GM VIAL ONE (22:32)
[2018-04-03 00:49] LABS: Anion Gap 13 mmol/L (10-20); BUN (Urea Nitrogen) 26 mg/dL (8.4-25.7); Calc. Creatinine Clearance 0 mL/min (70-130); Calcium 7.7 mg/dL (7.8-10.44); Carbon Dioxide 26 mmol/L (23-31); Chloride 105 mmol/L (98-107); Estimated GFR-MDRD 49; Glucose 122 mg/dL (80-115); Potassium 5.5 mmol/L (3.5-5.1); Sodium 138 mmol/L (136-145)
== END 2018-04-03 02:04 ==
LOC: ERS 20:34
DX: D50.9 Iron deficiency anemia, unspecified (principal); N39.0 Urinary tract infection, site not specified; I25.10 Atherosclerotic heart disease of native coronary artery without angina pectoris; I25.2 Old myocardial infarction; E11.9 Type 2 diabetes mellitus without complications; K21.9 Gastro-esophageal reflux disease without esophagitis; N40.0 Benign prostatic hyperplasia without lower urinary tract symptoms; E78.5 Hyperlipidemia, unspecified; I11.0 Hypertensive heart disease with heart failure; I50.9 Heart failure, unspecified; Z86.73 Personal history of transient ischemic attack (TIA), and cerebral infarction without residual deficits; F41.9 Anxiety disorder, unspecified; F32.9 Major depressive disorder, single episode, unspecified; Z79.82 Long term (current) use of aspirin; Z79.84 Long term (current) use of oral hypoglycemic drugs; Z79.899 Other long term (current) drug therapy
CPT/HCPCS: 71045; 80053; 81003; 81015; 82274; 82550; 83690; 83880; 84484; 85025; 85610; 85730; 86850; 86900; 86901; 87077; 87086; 93005; 94760; 96365; J0696

== ENCOUNTER 2018-08-15 08:31 | Day surgery (SDC) | payer MEDICARE, MEDICAID ==
[2018-08-14 14:24] VITALS: BMI 29.7
[2018-08-15 08:54] LABS: #Eosinphils 0.3 thou/uL (0.0-0.7); #Lymphocytes 1.1 thou/uL (1.20-3.40); #Monocytes 0.3 thou/uL (0.11-0.59); #Neutrophils 3.9 thou/uL (1.40-6.50); %Basophils 0.4 % (0.0-1.0); %Eosinophils 5.1 % (0.0-10.0); %Lymphocytes 18.9 % (21.0-51.0); %Monocytes 4.8 % (0.0-10.0); %Neutrophils 70.8 % (42.0-75.0); Mean Corpuscular HGB CONC 33.5 g/dL (32.0-36.0); Mean Corpuscular Hemoglobin 28.9 pg (27.0-31.0); Mean Corpuscular Volume 86.2 fL (78.0-98.0); Mean Platelet Volume 7.2 fL (7.4-10.4); Platelet Count 222 thou/uL (130-400); RBC Distribution Width 13.2 % (11.5-14.5); Red Blood Cell (RBC) Count 3.13 mill/uL (4.70-6.10); White Blood Cell (WBC) Count 5.5 thou/uL (4.8-10.8)
[2018-08-15 09:10] LABS: INR-International Normal Ratio 1.1; PTT 39.4 SEC (22.9-36.1); Prothrombin Time 14.7 SEC (12.0-14.7)
[2018-08-15 09:57] VITALS: BP 145/67; TEMP 98
--- NOTE | 2018-08-15 11:37 | CT ---
CT GUIDED SUPRAPUBIC CATHETER PLACEMENT: Conscious sedation: Approximately 45 minutes were spent with the patient for conscious sedation. HISTORY: Urinary retention. FINDINGS: After explaining the procedure and answering all questions, limited CT imaging of the pelvis was per formed. Due to initially inadequate urinary bladder distention, a total volume of 700 mL sterile saline were infused into the bladder via the indwelling Smith catheter. Sterile technique, buffered local anesthesia, conscious sedation, CT guidance, and an anterior suprap ubic approach were used to advance a 14 Japanese catheter into the urinary bladder via trocar technique. Position was confirmed with CT after inflation of the retention balloon with 10 cc sterile water. The infused saline was drained. The catheter was secured externally with 0 silk suture and left draining to gravity. Patient tolerated the procedure well and was returned to the holding area i n good condition for further monitoring. IMPRESSION: Technically successful CT-guided suprapubic catheter placement. Transcribed Date/Time: 08/15/2018 12:05 PM
== END 2018-08-15 12:20 | disposition home or self-care (01) ==
LOC: CT 08:31
PROVIDERS: ATTEND Urology
PROC: 0T9B30Z Drainage of Bladder with Drainage Device, Percutaneous Approach (ICD-10-PCS; principal; 2018-08-15)
DX: R33.9 Retention of urine, unspecified (principal); Z79.82 Long term (current) use of aspirin; Z79.84 Long term (current) use of oral hypoglycemic drugs; Z79.2 Long term (current) use of antibiotics; Z79.899 Other long term (current) drug therapy
CPT/HCPCS: 51102; 77002; 85025; 85610; 85730; C2627; 36415

== ENCOUNTER 2018-08-24 14:43 | Emergency (ER) | payer MEDICARE, OTHER ==
--- NOTE | 2018-08-24 15:41 | CT ---
EXAM: ABDOMEN AND PELVIS CT WITHOUT CONTRAST: HISTORY: Erythema and pain, about suprapubic catheter. COMPARISON: 03/11/2018. FINDINGS: Evaluation is limited without IV or enteric contrast. Mild bilateral pleural effusions with adjacent parenchymal consolidation Liver: Unremarkable. Gallbladder: Cholelithiasis Pancreas: Unremarkable Spleen: Unremarkable. Adrenal glands: Unremarkable. Kidneys: No renal calculus or acute obstruction. No solid or cystic mass. Bowel: Colonic diverticulosis Urinary Bladder: Suprapubic catheter is present. There is no significant abnormal fluid collection al jefe the course of the suprapubic catheter, and the insufflated balloon is located within the decompressed urinary bladder. Bladder wall is thick. Adenopathy: No adenopathy within the abdomen or pelvis. Free Air: No free air. Ascites: No ascites. Osseous structures: No acute osseous abnormalities. IMPRESSION: No noncontrast CT evidence of significant complication of suprapubic catheter. Additional findings are discussed above. Transcribed Date/Time: 08/24/2018 3:46 PM
== END 2018-08-24 16:30 | disposition home or self-care (01) ==
LOC: ERS 14:43
DX: L03.319 Cellulitis of trunk, unspecified (principal); I25.10 Atherosclerotic heart disease of native coronary artery without angina pectoris; I25.2 Old myocardial infarction; E11.9 Type 2 diabetes mellitus without complications; K21.9 Gastro-esophageal reflux disease without esophagitis; N40.0 Benign prostatic hyperplasia without lower urinary tract symptoms; D50.9 Iron deficiency anemia, unspecified; E78.5 Hyperlipidemia, unspecified; I11.0 Hypertensive heart disease with heart failure; I50.9 Heart failure, unspecified; Z86.73 Personal history of transient ischemic attack (TIA), and cerebral infarction without residual deficits; F41.9 Anxiety disorder, unspecified; F32.9 Major depressive disorder, single episode, unspecified; Z79.899 Other long term (current) drug therapy; Z79.84 Long term (current) use of oral hypoglycemic drugs; Z79.82 Long term (current) use of aspirin
CPT/HCPCS: 74176

== ENCOUNTER 2018-09-12 19:17 | Emergency (ER) | payer MEDICARE, MEDICAID ==
[2018-09-12 20:06] LABS: Bilirubin Negative (Negative); Blood, Urine Small (Negative); Clarity CLOUDY (Clear); Glucose, Urine (Dipstick) Negative (Negative); Leukocyte Large (Negative); Nitrite Negative (Negative); Protein, Urine (Dipstick) 100 mg/dL (Neg-Trace); Specific Gravity, Urine 1.012 (1.002-1.036); Urobilinogen 0.2 mg/dL (0.2-1.0); pH, Urine 6.5 (5.0-9.0)
[2018-09-12 20:08] LABS: Bacteria/HPF 2+ HPF (None Seen); Hyaline Casts/LPF 4-6 HYALINE CAST LPF (0-3 Hyaline); Pathc Cast-AUWi Flag 0.54 (0-2.49); Squamous Epithelial None Seen HPF (0-3)
[2018-09-12 20:23] LABS: #Eosinphils 0.2 thou/uL (0.0-0.7); #Lymphocytes 0.7 thou/uL (1.20-3.40); #Monocytes 0.5 thou/uL (0.11-0.59); %Basophils 0.4 % (0.0-1.0); %Eosinophils 2.7 % (0.0-10.0); %Lymphocytes 9.7 % (21.0-51.0); %Monocytes 6.5 % (0.0-10.0); %Neutrophils 80.8 % (42.0-75.0); Hemoglobin 5.7 g/dL (14.0-18.0); Mean Corpuscular HGB CONC 32.1 g/dL (32.0-36.0); Mean Corpuscular Hemoglobin 28.4 pg (27.0-31.0); Mean Corpuscular Volume 88.6 fL (78.0-98.0); Mean Platelet Volume 7.7 fL (7.4-10.4); Platelet Count 194 thou/uL (130-400); RBC Distribution Width 13.8 % (11.5-14.5); Red Blood Cell (RBC) Count 2.01 mill/uL (4.70-6.10); White Blood Cell (WBC) Count 7.4 thou/uL (4.8-10.8)
[2018-09-12] MEDS ORDERED: Pantoprazole 80 MG, Admixture Fee 1 EACH in Sodium Chloride 0.9% 100 ML IVPB SCH (20:30)
[2018-09-12 20:43] LABS: ALT (SGPT) Less than 7 U/L (8-55); AST (SGOT) 5 U/L (5-34); Albumin 3.5 g/dL (3.4-4.8); Alkaline Phosphatase 88 U/L (40-150); Anion Gap 14 mmol/L (10-20); BUN (Urea Nitrogen) 50 mg/dL (8.4-25.7); Bilirubin, Total 0.3 mg/dL (0.2-1.2); Calc. Creatinine Clearance 0 mL/min (70-130); Calcium 7.5 mg/dL (7.8-10.44); Carbon Dioxide 19 mmol/L (23-31); Chloride 113 mmol/L (98-107); Estimated GFR-MDRD 43; Globulin 2.4 g/dL (2.4-3.5); Glucose 162 mg/dL (80-115); Potassium 5.7 mmol/L (3.5-5.1); Protein, Total 5.9 g/dL (5.8-8.1); Sodium 140 mmol/L (136-145)
[2018-09-12] MEDS ORDERED: Furosemide 40 MG/4 ML VIAL ONE (23:47)
== END 2018-09-13 03:56 | disposition home or self-care (01) ==
LOC: ERS 19:17
DX: K92.2 Gastrointestinal hemorrhage, unspecified (principal); D64.9 Anemia, unspecified; D64.89 Other specified anemias; I25.2 Old myocardial infarction; K21.9 Gastro-esophageal reflux disease without esophagitis; D50.9 Iron deficiency anemia, unspecified; E78.5 Hyperlipidemia, unspecified; I73.9 Peripheral vascular disease, unspecified; F41.9 Anxiety disorder, unspecified; E11.9 Type 2 diabetes mellitus without complications; F32.9 Major depressive disorder, single episode, unspecified; Z86.73 Personal history of transient ischemic attack (TIA), and cerebral infarction without residual deficits; I11.0 Hypertensive heart disease with heart failure; I50.9 Heart failure, unspecified; Z79.82 Long term (current) use of aspirin; Z79.899 Other long term (current) drug therapy
CPT/HCPCS: 36430; 80053; 82274; 85025; 86850; 86900; 86901; 86920; 87077; 87086; 87186; 96365; 96366; 96375; 99284; P9016; 81003; 81015; C9113; J1940; J3490

== ENCOUNTER 2018-10-08 11:17 | Day surgery (SDC) | payer MEDICARE, MEDICAID ==
[2018-10-08] MEDS ORDERED: Acetaminophen 325 MG TAB PO SCH (12:15)
[2018-10-08 17:32] VITALS: BP 179/76; TEMP 98.5
== END 2018-10-08 17:33 ==
LOC: ONC/OP 11:17
PROVIDERS: ATTEND Internal Medicine
DX: D50.9 Iron deficiency anemia, unspecified (principal)
CPT/HCPCS: 36430; 86850; 86900; 86901; P9016

== ENCOUNTER 2018-10-31 08:47 | Day surgery (SDC) | payer MEDICARE, MEDICAID ==
[2018-10-31 09:36] VITALS: BMI 32.8
[2018-10-31] MEDS ORDERED: Furosemide 20 MG/2 ML VIAL SLOW IVP PRN (10:19)
[2018-10-31] MEDS: cloNIDine 0.1 MG TAB PO PRN ×4 (10:40→22:33)
[2018-11-01] MEDS: cloNIDine 0.1 MG TAB PO PRN ×6 (00:19→13:52)
[2018-11-01] MEDS ORDERED: Furosemide 20 MG/2 ML VIAL SLOW IVP SCH (08:15)
[2018-11-01] MEDS ORDERED: hydrALAZINE 25 MG TAB PO SCH ×2 (11:00→15:00)
[2018-11-01 11:02] VITALS: TEMP 98.8
[2018-11-01] MEDS ORDERED: Amlodipine 5 mg/Benazepril 10 mg CAP PO SCH (13:00)
[2018-11-01] MEDS ORDERED: Carvedilol 25 MG TAB PO SCH ×2 (13:00→17:00)
[2018-11-01 13:18] LABS: Hemoglobin A1c 4.9 % (4.0-6.0)
[2018-11-01 13:31] LABS: Anion Gap 12 mmol/L (10-20); BUN (Urea Nitrogen) 29 mg/dL (8.4-25.7); Calc. Creatinine Clearance 69 mL/min (70-130); Calcium 8.7 mg/dL (7.8-10.44); Carbon Dioxide 20 mmol/L (23-31); Chloride 109 mmol/L (98-107); Estimated GFR-MDRD 51; Glucose 149 mg/dL (80-115); Potassium 5.5 mmol/L (3.5-5.1); Sodium 135 mmol/L (136-145)
[2018-11-01 15:41] VITALS: BP 182/84
[2018-11-02] MEDS ORDERED: Amlodipine 5 mg/Benazepril 10 mg CAP PO SCH (09:00)
== END 2018-11-01 17:30 ==
LOC: SDC/OP 08:47 → T4-B 09:04 → SDC/OP 11-01 17:30
PROVIDERS: ATTEND Specialist
DX: K92.2 Gastrointestinal hemorrhage, unspecified (principal)
CPT/HCPCS: 36430; 80048; 83036; 83880; 86850; 86900; 86901; 86920; P9016; 36415; J1940

== ENCOUNTER 2018-11-23 20:06 | Emergency (ER) | payer MEDICARE, MEDICAID ==
--- NOTE | 2018-11-23 21:10 | CT ---
CT BRAIN WITHOUT CONTRAST: History: Fall with trauma to the back of the head. No loss of consciousness. FINDINGS: Comparison made with exam of 04-30-17. Changes of chronic small vessel ischemic disease are again seen. The ventricular size is stable and t he basilar cistern is patent. Old lacunar infarction in the left frontal lobe with mild dilatation of the left frontal horn is again seen. No evidence of acute infarct, hemorrhage, midline shift or abno rmal extraaxial fluid collections seen. There is a lipoma in the left frontal scalp. The bony calvari um is intact. There is mucosal disease in the paranasal sinuses. IMPRESSION: No CT evidence of acute intracranial process. POS: [facility]
--- NOTE | 2018-11-23 21:18 | CT ---
CERVICAL SPINE CT SCAN WITHOUT IV CONTRAST: History: Injury from trauma, fall. FINDINGS: Multilevel disc osteophytosis changes are noted. No evidence for acute fracture or dislocation. Minim al bilateral posterior pleural thickening. IMPRESSION: Cervical spondylosis. No evidence for acute fracture or dislocation. POS: [facility]
== END 2018-11-23 22:04 | disposition home or self-care (01) ==
LOC: ERS 20:06
DX: S09.90XA Unspecified injury of head, initial encounter (principal); I25.10 Atherosclerotic heart disease of native coronary artery without angina pectoris; I11.0 Hypertensive heart disease with heart failure; I50.9 Heart failure, unspecified; I25.2 Old myocardial infarction; E11.9 Type 2 diabetes mellitus without complications; K21.9 Gastro-esophageal reflux disease without esophagitis; N40.0 Benign prostatic hyperplasia without lower urinary tract symptoms; F41.9 Anxiety disorder, unspecified; F32.9 Major depressive disorder, single episode, unspecified; D50.9 Iron deficiency anemia, unspecified; Z86.73 Personal history of transient ischemic attack (TIA), and cerebral infarction without residual deficits; W18.30XA Fall on same level, unspecified, initial encounter
CPT/HCPCS: 70450; 72125

== ENCOUNTER 2018-12-24 15:11 | Inpatient (IN) | payer MEDICARE, MEDICAID ==
[2018-12-24 16:08] LABS: Bacteria/HPF 4+ HPF (None Seen); Bilirubin Negative (Negative); Blood, Urine 1+ (Negative); Clarity Turbid (Clear); Glucose, Urine (Dipstick) Normal (Negative); Leukocyte 500 Leu/uL (Negative); Nitrite Negative (Negative); Protein, Urine (Dipstick) 600 mg/dL (Neg-Trace); RBC/HPF 21-50 HPF (0-3); Squamous Epithelial 0-3 HPF (0-3); WBC/HPF 21-50 HPF (0-3)
--- NOTE | 2018-12-24 16:40 | RAD ---
PORTABLE CHEST: 12/24/18 HISTORY: Cough. COMPARISON: 04/02/18. Mild cardiomegaly. Mild vascular engorgement with prominence of the hilar regions. These findings are stable. No focal infiltrate or significant effusion. IMPRESSION: Stable chest finding. POS: OFF
[2018-12-24 17:29] LABS: #Lymphocytes 0.6 thou/uL (1.20-3.40); #Monocytes 0.7 thou/uL (0.11-0.59); %Eosinophils 0.4 % (0.0-10.0); %Lymphocytes 6.7 % (21.0-51.0); %Monocytes 7.4 % (0.0-10.0); %Neutrophils 85.5 % (42.0-75.0); Hemoglobin 8.4 g/dL (14.0-18.0); Mean Corpuscular HGB CONC 32.4 g/dL (32.0-36.0); Mean Corpuscular Hemoglobin 28.9 pg (27.0-31.0); Mean Corpuscular Volume 89.2 fL (78.0-98.0); Mean Platelet Volume 7.2 fL (7.4-10.4); Platelet Count 234 thou/uL (130-400); RBC Distribution Width 13.5 % (11.5-14.5); Red Blood Cell (RBC) Count 2.92 mill/uL (4.70-6.10); White Blood Cell (WBC) Count 9.4 thou/uL (4.8-10.8)
[2018-12-24 17:52] LABS: ALT (SGPT) Less than 7 U/L (8-55); AST (SGOT) 8 U/L (5-34); Albumin 3.7 g/dL (3.4-4.8); Alkaline Phosphatase 93 U/L (40-110); Anion Gap 13 mmol/L (10-20); BUN (Urea Nitrogen) 23 mg/dL (8.4-25.7); Bilirubin, Total 0.6 mg/dL (0.2-1.2); CK (CPK) 60 U/L (30-200); Calc. Creatinine Clearance 0 mL/min (70-130); Carbon Dioxide 19 mmol/L (23-31); Chloride 111 mmol/L (98-107); Estimated GFR-MDRD 44; Globulin 2.5 g/dL (2.4-3.5); Glucose 113 mg/dL (80-115); Magnesium 2.1 mg/dL (1.6-2.6); Potassium 6.2 mmol/L (3.5-5.1); Protein, Total 6.2 g/dL (5.8-8.1); Sodium 137 mmol/L (136-145)
[2018-12-24 18:15] LABS: CKMB 1.5 ng/mL (0-6.6)
--- NOTE | 2018-12-24 18:18 | CT ---
CT ABDOMEN WITH CONTRAST CT PELVIS WITH CONTRAST: DATE: 12/24/2018 HISTORY: 63-year-old male with cough, fever, chest pain, nausea, vomiting, and abdominal pain. COMPARISON: 08/24/2018 TECHNIQUE: IV injection of iodinated contrast media: administered. Oral contrast media:Not administered FINDINGS: There is a patchy alveolar infiltrate at the right lower lobe suspicious for pneumonia. Very small ri ght pleural effusion. In the contralateral left lung, there is a small posterior medial basilar consolidation which is slightly favored to be atelectasis. No pneumoperitoneum. Suprapubic catheter remains, within empty urinary bladder. There is less mural t hickening of the urinary bladder on the current CT compared to prior. No signs of colonic diverticulitis. No small bowel dilation. Normal appendix, liver, adrenals, spleen, and pancreas. Heavy atherosclerotic callus location of abdominal aorta and iliac arteries without aneurysm. No hydronephrosis. 2 cm low-attenuation lesion at medial parenchyma of right renal lower pole with density of 16 Hounsfi eld units, probably a cyst with slightly hemorrhagic or proteinaceous contents. Mild anasarca. Minimal ascites. No major interval change in intra-abdominal contents. IMPRESSION: 1. Right lower lobe infiltrate suspicious for pneumonia, with small right parapneumonic pleural effus ion. 2. Suprapubic catheter.
[2018-12-24] MEDS ORDERED: Furosemide 40 MG/4 ML VIAL ONE (18:27)
[2018-12-24] MEDS ORDERED: Aspirin Chewable 81 MG TAB ONE (18:27)
[2018-12-24] MEDS ORDERED: Calcium Chloride 1 GM/10 ML Abboject SYRINGE ONE (18:37)
[2018-12-24 18:47] LABS: Anion Gap 13 mmol/L (10-20); BUN (Urea Nitrogen) 23 mg/dL (8.4-25.7); Calc. Creatinine Clearance 0 mL/min (70-130); Calcium 8.2 mg/dL (7.8-10.44); Carbon Dioxide 19 mmol/L (23-31); Chloride 111 mmol/L (98-107); Estimated GFR-MDRD 47; Glucose 113 mg/dL (80-115); Potassium 6.2 mmol/L (3.5-5.1); Sodium 137 mmol/L (136-145)
[2018-12-24] MEDS ORDERED: Sodium Bicarbonate 2.5 MEQ/5 ML VIAL ONE (19:35)
[2018-12-24] MEDS ORDERED: Sodium Bicarb 50 MEQ/50 ML VIAL ONE ×2 (19:37→19:38)
[2018-12-24] MEDS ORDERED: Albuterol Sulfate 2.5 mg/3 ml Neb ONE (19:39)
[2018-12-24] MEDS ORDERED: ISOVUE-370 76%-LOCM 1 ML ONE (20:45)
[2018-12-24 20:53] LABS: Troponin I 0.041 ng/mL (< 0.028)
[2018-12-24 23:03] LABS: Anion Gap 13 mmol/L (10-20); BUN (Urea Nitrogen) 23 mg/dL (8.4-25.7); Calc. Creatinine Clearance 0 mL/min (70-130); Calcium 8.8 mg/dL (7.8-10.44); Carbon Dioxide 22 mmol/L (23-31); Chloride 109 mmol/L (98-107); Estimated GFR-MDRD 45; Glucose 102 mg/dL (80-115); Sodium 138 mmol/L (136-145)
--- NOTE | 2018-12-25 01:36 | HP ---
CHIEF COMPLAINT ON ADMISSION: Hyperkalemia, UTI and right lower lobe pneumonia. HISTORY OF PRESENT ILLNESS: The patient is a 63-[facility]-old [place] [facility] patient who resides at [facility] due to bilateral AKA amputations for severe peripheral vascular disease secondary to diabetes and noncompliance. He also has had flash pulmonary edema in the past. This particular ER visit was prompted by a nursing call to Dr. Knapp stating that the patient had a temperature up to 102, and there was no nausea, vomiting, or diarrhea. He did have a cough and because of his prior history, he was sent to the emergency room for further evaluation. There in the ER, his potassium was noted to be 6.2, it was repeated and not hemolyzed. On CT of his abdomen, right lower lobe pneumonia was noted and on urinary analysis, he had 20-50 wbc's. PAST MEDICAL HISTORY: As mentioned previously, insulin-dependent diabetes with long history of noncompliance, peripheral vascular disease, hypertension, coronary artery disease, CHF, myocardial infarction, severe GERD, BPH with urethral stricture, iron deficiency anemia with last hospitalization in 02/2018 for GI bleed, etiology unable to be determined, hyperlipidemia, CVA. PAST SURGICAL HISTORY: Includes stent in the right lower leg, bilateral AKAs in 2014. PSYCHIATRIC HISTORY: Notable for anxiety and depression. SOCIAL HISTORY: No smoking or alcohol use. Denies drug use. Currently lives at [facility]. ALLERGIES: HE HAS NO KNOWN DRUG ALLERGIES. CURRENT MEDICATIONS: Pending his list from [facility]. He personally cannot recall. REVIEW OF SYSTEMS: CONSTITUTION: At the time of admission, the patient is a very poor historian. He states he had felt warm and fatigued constitutionally. HEENT: Denies drainage or pain from eyes, ears, nose, or throat. CHEST: He has had cough, but no dyspnea. CARDIOVASCULAR: Denies chest pain or palpitations. GI: Denies nausea, vomiting, or diarrhea. : Denies pain with urination or frequency or blood in urine or stool. MUSCULOSKELETAL: No specific complaints of joint edema, pain, or swelling. SKIN: No new rashes or lesions. NEUROLOGIC: Denies headaches, blurred vision, trouble with mentation. PHYSICAL EXAMINATION: VITAL SIGNS: At the time of admission, he is currently afebrile. His vital signs are stable. GENERAL: He is alert, eating dinner without problems, in no acute distress. HEENT: Normocephalic, atraumatic. Pupils are equal, round, and reactive to light with arcus senilis bilaterally. TMs, nares, and pharynx are clear. NECK: Supple. CHEST: Clear to auscultation. HEART: Regular rate and rhythm. ABDOMEN: Obese, I am unable to appreciate organomegaly or tenderness. No overt hernias or masses. : Deferred. EXTREMITIES: Upper extremities, without clubbing, cyanosis, or edema. Normal range of motion. Lower extremities were both removed above the knee. SKIN: No new rashes or lesions. NEUROLOGIC: Cranial nerves are intact. Gait and cerebellar function are untestable. Sensory exam is grossly intact. Mental status is baseline. LABORATORY DATA: His lab work on admission shows WBCs 9.4, hemoglobin 8.4, hematocrit 26 with platelets at 234. His sodium was 137, potassium 6.2, chloride 111, CO2 19, BUN 23, creatinine 1.5, glucose is 113. He also has some indeterminate elevated troponin I's at 0.035 and 0.041. The BNP is elevated at 1952. Liver functions unremarkable. UA shows 500 leukocyte esterase with wbc's at 20-50. Chest x-ray shows enlarged heart, but no acute pulmonary infiltrates and CT of the abdomen as previously mentioned shows a right lower lobe infiltrate, suprapubic catheter, no other acute findings. ASSESSMENT: 1. Right lower lobe pneumonia. 2. Urinary tract infection. 3. Hyperkalemia. 4. Diabetes-poor compliance. 5. History of fragile congestive heart failure. PLAN: Plan will be to keep his fluid status euvolemic. Begin IV antibiotics and serially re-evaluate him. Job ID: [id number]
[2018-12-25 03:23] LABS: Anion Gap 16 mmol/L (10-20); BUN (Urea Nitrogen) 24 mg/dL (8.4-25.7); Calc. Creatinine Clearance 64 mL/min (70-130); Calcium 8.9 mg/dL (7.8-10.44); Carbon Dioxide 19 mmol/L (23-31); Chloride 110 mmol/L (98-107); Estimated GFR-MDRD 45; Glucose 104 mg/dL (80-115); Potassium 6.3 mmol/L (3.5-5.1); Sodium 139 mmol/L (136-145)
[2018-12-25 06:03] LABS: Anion Gap 12 mmol/L (10-20); BUN (Urea Nitrogen) 23 mg/dL (8.4-25.7); Calc. Creatinine Clearance 63 mL/min (70-130); Calcium 8.7 mg/dL (7.8-10.44); Carbon Dioxide 24 mmol/L (23-31); Chloride 108 mmol/L (98-107); Estimated GFR-MDRD 44; Glucose 97 mg/dL (80-115); Potassium 6.2 mmol/L (3.5-5.1); Sodium 138 mmol/L (136-145)
[2018-12-25 06:08] LABS: Troponin I 0.028 ng/mL (< 0.028)
[2018-12-25] MEDS ORDERED: Furosemide 40 MG/4 ML VIAL SLOW IVP SCH (09:00)
[2018-12-25] MEDS ORDERED: Aspirin Chewable 81 MG TAB PO SCH (09:00)
[2018-12-25] MEDS ORDERED: FLU VACC QS2019-20(6MOS UP)/PF 60 MCG/0.5 ML SYRINGE IM ONE (09:00)
[2018-12-25] MEDS: cefTRIAXone\\ROCEPHIN 1 GM in Sodium Chloride 0.9% 100 ML IVPB SCH (16:29)
[2018-12-25] MEDS ORDERED: Diphenoxylate HCl/Atropine Tablet PO PRN (18:46)
[2018-12-25] MEDS: Carvedilol 25 MG TAB PO SCH (20:58)
[2018-12-25] MEDS: Gabapentin 300 MG CAP PO SCH (20:58)
[2018-12-25] MEDS: hydrALAZINE 25 MG TAB PO SCH ×3 (20:58→21:29)
[2018-12-25] MEDS: Famotidine 20 MG TAB PO SCH (20:58)
[2018-12-25] MEDS: Docusate 100 MG CAP PO SCH (20:59)
[2018-12-25] MEDS: Acetaminophen 325 MG TAB PO PRN (21:05)
[2018-12-25] MEDS ORDERED: hydrALAZINE 25 MG TAB PO SCH (21:30)
[2018-12-26 05:08] LABS: #Eosinphils 0.2 thou/uL (0.0-0.7); #Lymphocytes 0.7 thou/uL (1.20-3.40); #Monocytes 0.5 thou/uL (0.11-0.59); #Neutrophils 4.6 thou/uL (1.40-6.50); %Basophils 0.2 % (0.0-1.0); %Eosinophils 4.1 % (0.0-10.0); %Lymphocytes 10.9 % (21.0-51.0); %Monocytes 8.1 % (0.0-10.0); %Neutrophils 76.8 % (42.0-75.0); Hemoglobin 7.8 g/dL (14.0-18.0); Mean Corpuscular HGB CONC 32.2 g/dL (32.0-36.0); Mean Corpuscular Hemoglobin 28.9 pg (27.0-31.0); Mean Corpuscular Volume 89.9 fL (78.0-98.0); Mean Platelet Volume 7.4 fL (7.4-10.4); Platelet Count 238 thou/uL (130-400); RBC Distribution Width 13.2 % (11.5-14.5); Red Blood Cell (RBC) Count 2.68 mill/uL (4.70-6.10); White Blood Cell (WBC) Count 6.1 thou/uL (4.8-10.8)
[2018-12-26 05:30] LABS: Anion Gap 13 mmol/L (10-20); BUN (Urea Nitrogen) 22 mg/dL (8.4-25.7); Calc. Creatinine Clearance 60 mL/min (70-130); Calcium 8.4 mg/dL (7.8-10.44); Carbon Dioxide 27 mmol/L (23-31); Chloride 106 mmol/L (98-107); Estimated GFR-MDRD 42; Glucose 110 mg/dL (80-115); Potassium 5.1 mmol/L (3.5-5.1); Sodium 141 mmol/L (136-145)
[2018-12-26] MEDS ORDERED: cloNIDine 0.1 MG TAB PO PRN (08:13)
--- NOTE | 2018-12-26 09:06 | RAD ---
SINGLE VIEW OF THE CHEST: COMPARISON: 12/24/2018. HISTORY: Pneumonia. FINDINGS: Single view of the chest shows a normal sized cardiomediastinal silhouette. There is no evidence of c onsolidation, mass, or pleural effusion. The bones are unremarkable. IMPRESSION: No evidence of acute cardiopulmonary disease. POS: [facility]
[2018-12-26] MEDS: hydrALAZINE 25 MG TAB PO SCH ×3 (09:10→20:33)
[2018-12-26] MEDS: Gabapentin 300 MG CAP PO SCH ×2 (09:11→20:34)
[2018-12-26] MEDS: Losartan 25 MG TAB PO SCH (09:11)
[2018-12-26] MEDS: Furosemide 40 MG TAB PO SCH (09:11)
[2018-12-26] MEDS: Carvedilol 25 MG TAB PO SCH ×2 (09:11→20:34)
[2018-12-26] MEDS: Famotidine 20 MG TAB PO SCH ×2 (09:11→20:33)
[2018-12-26] MEDS: Docusate 100 MG CAP PO SCH ×2 (09:11→20:33)
[2018-12-26] MEDS: Aspirin Chewable 81 MG TAB PO SCH (09:11)
[2018-12-26] MEDS: Nystatin Powder 15 GM BOT TOP SCH (09:12)
[2018-12-26] MEDS: Insulin Glargine 20 UNITS in Pre-Filled Syringe SC SCH (09:37)
[2018-12-26] MEDS ORDERED: FLU VACC QS2019-20(6MOS UP)/PF 60 MCG/0.5 ML SYRINGE IM ONE (10:00)
[2018-12-26 14:50] LABS: #Eosinphils 0.2 thou/uL (0.0-0.7); #Lymphocytes 0.5 thou/uL (1.20-3.40); #Monocytes 0.4 thou/uL (0.11-0.59); #Neutrophils 4.8 thou/uL (1.40-6.50); %Basophils 0.4 % (0.0-1.0); %Eosinophils 3.5 % (0.0-10.0); %Lymphocytes 8.4 % (21.0-51.0); %Neutrophils 80.7 % (42.0-75.0); Hemoglobin 7.9 g/dL (14.0-18.0); Mean Corpuscular HGB CONC 32.4 g/dL (32.0-36.0); Mean Corpuscular Hemoglobin 29.1 pg (27.0-31.0); Platelet Count 237 thou/uL (130-400); RBC Distribution Width 13.3 % (11.5-14.5); Red Blood Cell (RBC) Count 2.71 mill/uL (4.70-6.10); White Blood Cell (WBC) Count 5.9 thou/uL (4.8-10.8)
[2018-12-26 15:10] LABS: Anion Gap 12 mmol/L (10-20); BUN (Urea Nitrogen) 22 mg/dL (8.4-25.7); Calc. Creatinine Clearance 52 mL/min (70-130); Calcium 7.7 mg/dL (7.8-10.44); Carbon Dioxide 25 mmol/L (23-31); Chloride 107 mmol/L (98-107); Estimated GFR-MDRD 38; Glucose 143 mg/dL (80-115); Potassium 4.7 mmol/L (3.5-5.1); Sodium 139 mmol/L (136-145)
[2018-12-26] MEDS: cefTRIAXone\\ROCEPHIN 1 GM in Sodium Chloride 0.9% 100 ML IVPB SCH (16:47)
[2018-12-27] MEDS: Nystatin Powder 15 GM BOT TOP SCH ×3 (05:14→21:35)
[2018-12-27] MEDS: hydrALAZINE 25 MG TAB PO SCH ×3 (10:10→21:34)
[2018-12-27] MEDS: Losartan 25 MG TAB PO SCH (10:10)
[2018-12-27] MEDS: Carvedilol 25 MG TAB PO SCH ×2 (10:15→21:34)
[2018-12-27] MEDS: Aspirin Chewable 81 MG TAB PO SCH (10:15)
[2018-12-27] MEDS: Famotidine 20 MG TAB PO SCH ×2 (10:15→21:34)
[2018-12-27] MEDS: Furosemide 40 MG TAB PO SCH (10:16)
[2018-12-27] MEDS: Gabapentin 300 MG CAP PO SCH ×2 (10:16→21:34)
[2018-12-27] MEDS: Docusate 100 MG CAP PO SCH ×2 (10:16→21:34)
[2018-12-27] MEDS: Insulin Glargine 20 UNITS in Pre-Filled Syringe SC SCH (10:16)
--- NOTE | 2018-12-27 12:11 | EKG ---
Test Reason : Blood Pressure : / mmHG Vent. Rate : 070 BPM Atrial Rate : 070 BPM P-R Int : 180 ms QRS Dur : 086 ms QT Int : 402 ms P-R-T Axes : -08 -01 121 degrees QTc Int : 434 ms Normal sinus rhythm Left ventricular hypertrophy with repolarization abnormality Abnormal ECG Confirmed by RED FLETCHER ([id number]), tape editor VASILE ALICEA ([id number]) on 12/27/2018 12:10:40 PM Referred By: Confirmed By:RED FLETCHER
--- NOTE | 2018-12-27 16:04 | RAD ---
TWO VIEW CHEST: 12/27/18 HISTORY: Pneumonia follow-up. COMPARISON: 12/26/18. FINDINGS/IMPRESSION: Heart is upper normal size and stable. Vascular markings upper normal and stable. No focal infiltrate or consolidation. No interval change apparent. POS: OFF
[2018-12-27] MEDS: Acetaminophen 325 MG TAB PO PRN (16:38)
[2018-12-27] MEDS: cefTRIAXone\\ROCEPHIN 1 GM in Sodium Chloride 0.9% 100 ML IVPB SCH (16:44)
[2018-12-28 04:51] LABS: #Eosinphils 0.4 thou/uL (0.0-0.7); #Lymphocytes 0.8 thou/uL (1.20-3.40); #Monocytes 0.5 thou/uL (0.11-0.59); #Neutrophils 4.3 thou/uL (1.40-6.50); %Basophils 0.2 % (0.0-1.0); %Eosinophils 6.1 % (0.0-10.0); %Lymphocytes 14.2 % (21.0-51.0); %Monocytes 7.6 % (0.0-10.0); %Neutrophils 71.9 % (42.0-75.0); Mean Corpuscular HGB CONC 32.8 g/dL (32.0-36.0); Mean Corpuscular Hemoglobin 29.3 pg (27.0-31.0); Mean Corpuscular Volume 89.1 fL (78.0-98.0); Mean Platelet Volume 6.8 fL (7.4-10.4); Platelet Count 258 thou/uL (130-400); Red Blood Cell (RBC) Count 2.72 mill/uL (4.70-6.10); White Blood Cell (WBC) Count 5.9 thou/uL (4.8-10.8)
[2018-12-28 05:11] LABS: Anion Gap 13 mmol/L (10-20); BUN (Urea Nitrogen) 31 mg/dL (8.4-25.7); Calc. Creatinine Clearance 55 mL/min (70-130); Calcium 7.4 mg/dL (7.8-10.44); Carbon Dioxide 24 mmol/L (23-31); Chloride 108 mmol/L (98-107); Estimated GFR-MDRD 39; Glucose 105 mg/dL (80-115); Potassium 4.2 mmol/L (3.5-5.1); Sodium 141 mmol/L (136-145)
[2018-12-28 06:14] VITALS: BMI 66.4
[2018-12-28] MEDS: Losartan 25 MG TAB PO SCH (09:00)
[2018-12-28] MEDS: hydrALAZINE 25 MG TAB PO SCH (09:01)
[2018-12-28] MEDS: Docusate 100 MG CAP PO SCH (09:03)
[2018-12-28] MEDS: Furosemide 40 MG TAB PO SCH (09:03)
[2018-12-28] MEDS: Gabapentin 300 MG CAP PO SCH (09:03)
[2018-12-28] MEDS: Famotidine 20 MG TAB PO SCH (09:03)
[2018-12-28] MEDS: Aspirin Chewable 81 MG TAB PO SCH (09:03)
[2018-12-28] MEDS: Insulin Glargine 20 UNITS in Pre-Filled Syringe SC SCH (09:03)
[2018-12-28] MEDS: Carvedilol 25 MG TAB PO SCH (09:03)
[2018-12-28] MEDS: Nystatin Powder 15 GM BOT TOP SCH (09:04)
[2018-12-28 12:07] VITALS: BP 127/60; TEMP 97.9
== END 2018-12-28 15:26 | DRG 640 ==
LOC: ERS 15:11 → 2SE 23:24 → OBSVTOIN 12-25 14:14
PROVIDERS: ADMIT Specialist; ATTEND Specialist
DX: E87.5 Hyperkalemia (principal); J18.9 Pneumonia, unspecified organism; N39.0 Urinary tract infection, site not specified; I50.32 Chronic diastolic (congestive) heart failure; I11.0 Hypertensive heart disease with heart failure; E11.51 Type 2 diabetes mellitus with diabetic peripheral angiopathy without gangrene; I25.10 Atherosclerotic heart disease of native coronary artery without angina pectoris; K21.9 Gastro-esophageal reflux disease without esophagitis; D50.9 Iron deficiency anemia, unspecified; E78.5 Hyperlipidemia, unspecified; N40.0 Benign prostatic hyperplasia without lower urinary tract symptoms; D63.8 Anemia in other chronic diseases classified elsewhere; F41.9 Anxiety disorder, unspecified; F32.9 Major depressive disorder, single episode, unspecified; Z79.4 Long term (current) use of insulin; Z91.14 Patient's other noncompliance with medication regimen; I25.2 Old myocardial infarction; Z86.73 Personal history of transient ischemic attack (TIA), and cerebral infarction without residual deficits; Z89.612 Acquired absence of left leg above knee; Z89.611 Acquired absence of right leg above knee
CPT/HCPCS: 36415; 71045; 71046; 74177; 80048; 80053; 81003; 81015; 82550; 82553; 83605; 83735; 83880; 84484; 85025; 87040; 87086; 90471; 90686; 90732; 93005; 93306; 94640; 96365; 96375; G0008; G0009; J0696; J1815; J1940; J3490; J7611; Q9966

== ENCOUNTER 2019-02-17 08:14 | Day surgery (SDC) | payer MEDICARE, MEDICAID ==
[~2019-02-17 08:14] MED LIST: EPINEPHrine 0.3 MG in Ophthalmic Irrigation Solution 500 ML IRR SCH
[2019-02-17] MEDS ORDERED: Phenylephrine 2.5% Ophth Soln 5 ML BOT ONE (08:27)
[2019-02-17] MEDS ORDERED: Cyclopentolate 1% Opth Drop 2 ML BOT ONE (08:27)
[2019-02-17] MEDS ORDERED: Midazolam HCl 2 mg/2 ml Vial ONE (09:12)
[2019-02-17] MEDS ORDERED: Fentanyl 100 MCG/2 ML VIAL ONE (09:12)
[2019-02-17] MEDS ORDERED: Triamcinolone 40 MG/ML VIAL ONE (10:08)
[2019-02-17] MEDS ORDERED: Maxitrol 0.1% Opth Oint 3.5 GM TUBE ONE (10:08)
[2019-02-17] MEDS ORDERED: CEFAZOLIN 1 GM VIAL ONE (10:08)
[2019-02-17] MEDS ORDERED: Bupivacaine PF 0.75% SDV 10 ML ONE (10:08)
[2019-02-17] MEDS ORDERED: Lidocaine 1% PF 5 ML VIAL ONE (10:08)
[2019-02-17] MEDS ORDERED: Lidocaine 4% PF 5 ML AMP ONE (10:08)
[2019-02-17] MEDS ORDERED: PROPOFOL 200 MG/20 ML VIAL ONE (10:08)
--- NOTE | 2019-02-17 13:43 | OP ---
DATE OF PROCEDURE: 02/17/2019 PREOPERATIVE DIAGNOSIS: Vitreous hemorrhage, right eye. POSTOPERATIVE DIAGNOSES: 1. Vitreous hemorrhage, right eye. 2. Proliferative diabetic retinopathy, right eye. ESTIMATED BLOOD LOSS: None. SPECIMENS REMOVED: None. COMPLICATIONS: None. ANESTHESIA: MAC with retrobulbar block. SUMMARY OF OPERATION: The patient was identified in the preop holding area, where the correct eye being the right eye was marked for surgery. The patient was taken to the operating room, where MAC anesthesia was induced. A right retrobulbar block was administered to the right eye. The block consisted of 1:1 ratio of 4% lidocaine 0.75% Marcaine. A total of 5 mL administered. The right eye was then prepped and draped in the usual sterile fashion for surgery. A wire lid speculum was placed. A standard 25-gauge pars plana vitrectomy platform was fashioned with the trocars placed approximately 4 mm from the limbus. The infusion was noted to be within the vitreous cavity prior to being turned on to infusion pressure of 30 mmHg. The light pipe micro vitrector was introduced in the eye under visualization of the BIOM viewing system. A dense fundus obscuring vitreous hemorrhage was noted. A careful core and peripheral shave vitrectomy were performed, which allowed for progressive clearance of the vitreous hemorrhage and progressively improved view of the fundus. Upon clearing the vitreous hemorrhage, intraretinal hemorrhages were noted throughout the retina including some suspicious areas for neovascularization temporally and inferonasally. Following completion of vitrectomy, the endolaser was used to provide panretinal photocoagulation in the typical fashion with sparing of the 3 and 9 o'clock meridians. The cannulas were sequentially removed and all sclerotomies were noted to be watertight. Subconjunctival Ancef and Kenalog were injected. The wire lid speculum was removed followed by application of TobraDex ophthalmic ointment and a light patch and shield. The patient tolerated the procedure well and was taken to the outpatient recovery in good condition. Job ID: [id number]
== END 2019-02-17 11:45 | disposition home or self-care (01) ==
LOC: SDC 08:14
PROVIDERS: ATTEND Ophthalmology Retina Specialist
PROC: 08T43ZZ Resection of Right Vitreous, Percutaneous Approach (ICD-10-PCS; principal; 2019-02-17)
DX: H43.11 Vitreous hemorrhage, right eye (principal); E11.3591 Type 2 diabetes mellitus with proliferative diabetic retinopathy without macular edema, right eye
CPT/HCPCS: 36416; J0171; J0690; J2001; J2250; J2704; J3010; J3301; J3490